=== PATIENT | male | born 1960 | race Caucasian/White ===

== ENCOUNTER 2017-04-16 10:15 | Emergency (ER) | payer OTHER ==
[~2017-04-16] VITALS: Ht 188 cm; Wt 133.0 kg
[~2017-04-16 10:15] MED LIST: CYMB60CA PO; INSU100V2 SQ; MECL25CH PO; METH2.5 PO; MEVA40TA PO; NORC7.5T PO; NOVOLOGMXP SQ; XANA0.5T PO
[2017-04-16 10:17] VITALS: BP 122/72; PULSE 103; RESP 20; TEMP 98.4; O2SAT 96
[2017-04-16] MEDS ORDERED: ALPR.5 PO (10:48)
[2017-04-16] MEDS ORDERED: ENAL10TA PO (10:48)
[2017-04-16] MEDS ORDERED: BUPR150XL PO (10:48)
[2017-04-16] MEDS ORDERED: INSU1INJ14 SQ (10:48)
[2017-04-16] MEDS ORDERED: NOVOINJ3 SQ (10:48)
[2017-04-16] MEDS ORDERED: METF-382 PO (10:48)
[2017-04-16] MEDS ORDERED: DULO20 PO (10:48)
[2017-04-16] MEDS ORDERED: GLIP5TAB8 PO (10:48)
[2017-04-16] MEDS ORDERED: CLINDAMYCIN PHOS 600 MG/4 ML VIAL IM ONE (11:00)
--- NOTE | 2017-04-16 11:42 | RADRPT ---
EXAM DATE/TIME: 04/16/2017 11:18 [place] COMPARISON: No previous studies available for comparison. INDICATIONS : Leg pain with no known injury. MEDICAL HISTORY : Hypercholesterolemia. Hypertension Diabetes. SURGICAL HISTORY : Below knee amputation. ENCOUNTER: Initial ACUITY: 4 - 6 days PAIN SCORE: 8/10 LOCATION: Left Femur. FINDINGS: Two view examination of the left femur demonstrates no evidence of fracture or dislocation. There is a linear. The soft tissue structures are intact. CONCLUSION: Osteopenia with no focal abnormality. Regino Ruiz MD on April 16, 2017 at 11:38 Board Certified Radiologist. This report was verified electronically.
--- NOTE | 2017-04-16 12:05 | PD ---
HPI Chief Complaint: Pain: Acute or Chronic Time Seen by Provider: 10:42 Travel History International Travel<30 days: No Contact w/Intl Traveler<30days: No Traveled to known affect area: No History of Present Illness HPI patient has noted 2 day history of redness, tenderness, and hot sensation to left stump skin....worsened by prosthesis. denies any alleviating / aggravating factors....denies assoc factors suchas fever, n/v/d/cough/cp/abdpain /back pain/ no drainage/ all:nkda pcp recently switched pcp can't recall name pmhx:sig for dm, left bka PFSH Past Medical History Autoimmune Disease: Yes Blood Disorders: No Anxiety: Yes Depression: Yes Heart Rhythm Problems: No Cancer: No Cardiac Catheterization: No Cardiovascular Problems: Yes High Cholesterol: Yes Congestive Heart Failure: No Diabetes: Yes Patient Takes Glucophage: Yes Diminished Hearing: No Genitourinary: No Hypertension: Yes Musculoskeletal: No Neurologic: No Psychiatric: Yes Respiratory: No Tetanus Vaccination: < 5 Years Influenza Vaccination: Yes Past Surgical History Coronary Artery Bypass Graft: No Pacemaker: No Family History Family Myocardial Infarction: Yes Social History Alcohol Use: No Tobacco Use: No (QUIT) Substance Use: No Allergies-Medications (Allergen,Severity, Reaction): Coded Allergies: No Known Allergies (Verified Adverse Reaction, Unknown, 04/16/17) Reported Meds & Prescriptions Reported Meds & Active Scripts Active Reported Wellbutrin Xl 24 HR (Bupropion HCl) 150 Mg Tab 150 Mg PO DAILY Xanax (Alprazolam) 0.5 Mg Tab 0.5 Mg PO Q6H PRN Cymbalta DR (Duloxetine HCl) 20 Mg Capdr 80 Mg PO DAILY Glipizide 5 Mg Tab 5 Mg PO HS Take 30 minutes before a meal Enalapril (Enalapril Maleate) 10 Mg Tab 10 Mg PO DAILY Metformin ER (Metformin HCl) 1,000 Mg Shameka 1,000 Mg PO DAILY With evening meal Novolog Flexpen Inj (Insulin Aspart) 300 Unit/3 Ml Pen 11 Units SQ TID Tresiba Flextouch Pen Inj (Insulin Degludec Inj) 300 unit/3 ML Pen 60 Units SQ HS Review of Systems General / Constitutional: No: Fever Eyes: No: Visual changes HENT: No: Headaches Cardiovascular: No: Chest Pain or Discomfort Respiratory: No: Shortness of Breath Gastrointestinal: No: Abdominal Pain Genitourinary: No: Dysuria Musculoskeletal: No: Pain Skin: Positive Lesions, No Rash Neurologic: No: Weakness Psychiatric: No: Depression Endocrine: No: Polydipsia Hematologic/Lymphatic: No: Easy Bruising Physical Exam Narrative GENERAL: SKIN: Warm and dry. HEAD: Atraumatic. Normocephalic. EYES: Pupils equal and round. No scleral icterus. No injection or drainage. ENT: No nasal bleeding or discharge. Mucous membranes pink and moist. NECK: Trachea midline. No JVD. CARDIOVASCULAR: Regular rate and rhythm. RESPIRATORY: No accessory muscle use. Clear to auscultation. Breath sounds equal bilaterally. GASTROINTESTINAL: Abdomen soft, non-tender, nondistended. Hepatic and splenic margins not palpable. MUSCULOSKELETAL: Extremities without clubbing, cyanosis, or edema. No obvious deformities. left bka area has erythematous orange size nonfluctuant/warmth/ induratedcellulitic changes without ulceration/drainage/ NEUROLOGICAL: Awake and alert. No obvious cranial nerve deficits. Motor grossly within normal limits. Five out of 5 muscle strength in the arms and legs. Normal speech. PSYCHIATRIC: Appropriate mood and affect; insight and judgment normal. Data Data Last Documented VS Vital Signs Date Time Temp Pulse Resp B/P (MAP) Pulse Ox O2 Delivery O2 Flow Rate FiO2 04/16/17 10:17 98.4 103 20 122/72 (89) 96 Room Air Orders Orders Femur (Ap & Lat/2vws) (04/16/17 ) Clindamycin Inj (Cleocin Inj) (04/16/17 11:00) [facility] Medical Decision Making Medical Screen Exam Complete: Yes Emergency Medical Condition: Yes Medical Record Reviewed: Yes Differential Diagnosis cellulitis v lymphangitis v osteomyelitis Narrative Course patient's xray does not show any e/o osteomyelitis. Diagnosis Primary Impression: celllulitis to left stump Patient Instructions: Cellulitis (ED), General Instructions Scripts Sulfamethoxazole-Trimethoprim (Bactrim DS) 800-160 Mg Tab 1 TAB PO BID for Infection, #20 TAB 0 Refills Prov: Arthur Fraley MD 04/16/17 Disposition: 01 DISCHARGE HOME Condition: Stable Arthur Farley MD Apr 16, 2017 12:05
[2017-04-16] MEDS ORDERED: BACT800T5 PO (12:16)
[2017-04-16 12:47] VITALS: BP 119/75
== END 2017-04-16 12:48 | disposition home or self-care (01) ==
LOC: NEPC 10:15
DX: L03.116 Cellulitis of left lower limb (principal); I10 Essential (primary) hypertension; E78.00 Pure hypercholesterolemia, unspecified; E11.9 Type 2 diabetes mellitus without complications; F32.9 Major depressive disorder, single episode, unspecified; Z89.512 Acquired absence of left leg below knee; Z79.84 Long term (current) use of oral hypoglycemic drugs; Z79.4 Long term (current) use of insulin; Z79.899 Other long term (current) drug therapy
CPT/HCPCS: 73552; 96372

== ENCOUNTER 2018-01-31 12:17 | Inpatient (IN) ==
[2018-01-31] MEDS ORDERED: Sod Chloride 0.9% Inj 1,000 ML IV.SIG ONE ×2 (15:25→17:21)
--- NOTE | 2018-01-31 15:37 | ED ---
HPI General Chief Complaint: Extremity Injury, Lower Stated Complaint: Left leg pain Time Seen by Provider: 01/31/18 15:13 Source: patient and family Mode of arrival: wheelchair Limitations: physical limitation (Left BKA) History of Present Illness HPI Narrative: The patient is a 58-year-old male with history of diabetes on insulin metformin depression anxiety hypertension hyperlipidemia status post left BKA in 2001 due to complications from diabetes presenting with nontraumatic left stump pain for about a week. He had similar problems in the past and was admitted for cellulitis. Denies any fever or chills. No nausea vomiting or diarrhea. On arrival he is tachycardic with a heart rate of 117. MD complaint: Reports knee injury and other (Left stump pain) Onset (ago): week(s) (1) Severity scale (1-10): 7 Relieving factors: nothing Exacerbating factors: weight bearing, movement and palpation Context: Reports other (Denies any injury) Associated symptoms: Denies swelling and numbness Other symptoms: Reports none Related Data Home Medications Medication Instructions Recorded Confirmed alprazolam [Xanax] 0.5 mg PO BID 01/31/18 01/31/18 duloxetine [Cymbalta] 30 mg PO DAILY 01/31/18 01/31/18 enalapril maleate 10 mg PO DAILY 01/31/18 01/31/18 insulin regular human 11 units SUBCUT TID 01/31/18 01/31/18 metformin 1,000 mg PO BID 01/31/18 01/31/18 methotrexate sodium 15 mg PO DAILY 01/31/18 01/31/18 Allergies Allergy/AdvReac Type Severity Reaction Status Date / Time No Known Allergies Allergy Verified 01/31/18 15:24 Review of Systems ROS: all other systems reviewed are negative PMFSH History History Provided By: Patient Medical History Medical History Anxiety (Acute) Depression (Acute) Diabetes (Acute) HTN (hypertension) (Acute) Hyperlipidemia (Acute) Surgical History Surgical History Hx of BKA (Acute) Family History Family History Mother Diabetes Social History Social History Substance History: No History of Abuse Second Hand Smoke Exposure: No Smoking Status: Never smoker How Often Do You Have a Drink Containing Alcohol: Never Recent Travel in [facility] within the Last 8 Weeks: No Recent Out of Country Travel within the Last 8 Weeks: No Exam Narrative Exam Narrative: GENERAL: Alert and oriented no distress SKIN: Focused skin assessment warm/dry. Mild erythema over the tip of the left stump. Markedly tender to palpation. Refill on stump brisk. No purulent discharge. Dry scaly skin. HEAD: Atraumatic. Normocephalic. EYES: Pupils equal and round. No scleral icterus. No injection or drainage. ENT: No nasal bleeding or discharge. Mucous membranes pink and moist. NECK: Trachea midline. No JVD. CARDIOVASCULAR: Tachycardia with regular rhythm. No murmur appreciated. RESPIRATORY: No accessory muscle use. Clear to auscultation. Breath sounds equal bilaterally. GASTROINTESTINAL: Abdomen soft, non-tender, nondistended. Hepatic and splenic margins not palpable. MUSCULOSKELETAL: No obvious deformities. No clubbing. No cyanosis. No edema. left BKA NEUROLOGICAL: Awake and alert. No obvious cranial nerve deficits. Motor grossly within normal limits. Normal speech. PSYCHIATRIC: Appropriate mood and affect; insight and judgment normal. Course Initial Documented Vital Signs Temperature 97.5 F L 01/31/18 12:31 Pulse Rate 117 H 01/31/18 12:31 Respiratory Rate 18 01/31/18 12:31 Blood Pressure 136/66 01/31/18 12:31 Pulse Oximetry 96 01/31/18 12:31 Last Documented Vital Signs Temperature 99.5 F 02/01/18 00:00 Pulse Rate 103 H 02/01/18 00:00 Respiratory Rate 20 02/01/18 00:00 Blood Pressure 130/60 02/01/18 00:00 Pulse Oximetry 94 L 02/01/18 00:00 Medical Decision Making [facility] Narrative Medical decision making narrative: The patient appears to have cellulitis of the left stump that appears to be chronic with possible fluid collection that may represent an abscess formation. He does have elevated sed rate and WBC. Lactic acid is WN. pt was slightly tachycardic without any fever for which he was given fluids. He is also hyperglycemic which was addressed with fluids. We will start the patient on Vanco and Flagyl. No signs of osteomyelitis on CT scan however the official read is still pending. Patient is hemodynamically stable alert and oriented aware of plan of care Medical Screen Exam Complete: Yes Emergency Medical Condition: Yes Lab Data Result diagrams: 02/01/18 05:35 02/01/18 05:35 Lab Results 01/31/18 01/31/18 01/31/18 Range/Units 15:45 15:45 15:45 WBC 11.1 H (4.0-11.0) th/mm3 RBC 4.84 (4.50-5.90) mil/mm3 Hgb 15.2 (13.0-17.0) gm/dL Hct 45.6 (39.0-51.0) % MCV 94.1 (80.0-100.0) fL MCH 31.3 (27.0-34.0) pg MCHC 33.3 (32.0-36.0) % RDW 13.2 (11.6-17.2) % Plt Count 164 (150-450) th/mm3 MPV 9.9 (7.0-11.0) fL Neut % (Auto) 79.2 H (16.0-70.0) % Lymph % (Auto) 9.1 (9.0-44.0) % [place] % (Auto) 10.3 H (0.0-8.0) % Eos % (Auto) 0.6 (0.0-4.0) % Baso % (Auto) 0.8 (0.0-2.0) % Neut # (Auto) 8.8 H (1.8-7.7) th/mm3 Lymph # (Auto) 1.0 (1.0-4.8) th/mm3 [place] # (Auto) 1.1 H (0.0-0.9) th/mm3 Eos # (Auto) 0.1 (0.0-0.4) th/mm3 Baso # (Auto) 0.1 (0.0-0.2) th/mm3 WBC Differential . Differential Comment Auto diff final ESR 1 (0-20) mm/hr Sodium 133 L (136-145) meq/L Potassium 5.0 (3.5-5.1) meq/L Chloride 93 L (98-107) meq/L Carbon Dioxide 26.4 (21.0-32.0) meq/L Anion Gap 14 (5-15) meq/L BUN 21 H (7-18) mg/dL Creatinine 1.72 H (0.60-1.30) mg/dL Estimated GFR 41 L (>89) mL/min POC Glucose (68-110) mg/dl Random Glucose 416 H (74-106) mg/dL Lactic Acid (0.4-2.0) mmol/L Calcium 8.9 (8.5-10.1) mg/dL C-Reactive Protein 17.60 H (0.00-0.30) mg/dL 01/31/18 01/31/18 02/01/18 Range/Units 17:35 20:19 05:35 WBC 11.9 H (4.0-11.0) th/mm3 RBC 4.23 L (4.50-5.90) mil/mm3 Hgb 13.5 (13.0-17.0) gm/dL Hct 39.3 (39.0-51.0) % MCV 92.7 (80.0-100.0) fL MCH 31.8 (27.0-34.0) pg MCHC 34.3 (32.0-36.0) % RDW 13.1 (11.6-17.2) % Plt Count 149 L (150-450) th/mm3 MPV 10.1 (7.0-11.0) fL Neut % (Auto) 80.2 H (16.0-70.0) % Lymph % (Auto) 9.8 (9.0-44.0) % [place] % (Auto) 9.4 H (0.0-8.0) % Eos % (Auto) 0.3 (0.0-4.0) % Baso % (Auto) 0.3 (0.0-2.0) % Neut # (Auto) 9.5 H (1.8-7.7) th/mm3 Lymph # (Auto) 1.2 (1.0-4.8) th/mm3 [place] # (Auto) 1.1 H (0.0-0.9) th/mm3 Eos # (Auto) 0.0 (0.0-0.4) th/mm3 Baso # (Auto) 0.0 (0.0-0.2) th/mm3 WBC Differential . Differential Comment Auto diff final ESR (0-20) mm/hr Sodium (136-145) meq/L Potassium (3.5-5.1) meq/L Chloride (98-107) meq/L Carbon Dioxide (21.0-32.0) meq/L Anion Gap (5-15) meq/L BUN (7-18) mg/dL Creatinine (0.60-1.30) mg/dL Estimated GFR (>89) mL/min POC Glucose 424 H (68-110) mg/dl Random Glucose (74-106) mg/dL Lactic Acid 1.5 (0.4-2.0) mmol/L Calcium (8.5-10.1) mg/dL C-Reactive Protein (0.00-0.30) mg/dL 02/01/18 02/01/18 Range/Units 05:35 07:44 WBC (4.0-11.0) th/mm3 RBC (4.50-5.90) mil/mm3 Hgb (13.0-17.0) gm/dL Hct (39.0-51.0) % MCV (80.0-100.0) fL MCH (27.0-34.0) pg MCHC (32.0-36.0) % RDW (11.6-17.2) % Plt Count (150-450) th/mm3 MPV (7.0-11.0) fL Neut % (Auto) (16.0-70.0) % Lymph % (Auto) (9.0-44.0) % [place] % (Auto) (0.0-8.0) % Eos % (Auto) (0.0-4.0) % Baso % (Auto) (0.0-2.0) % Neut # (Auto) (1.8-7.7) th/mm3 Lymph # (Auto) (1.0-4.8) th/mm3 [place] # (Auto) (0.0-0.9) th/mm3 Eos # (Auto) (0.0-0.4) th/mm3 Baso # (Auto) (0.0-0.2) th/mm3 WBC Differential Differential Comment ESR (0-20) mm/hr Sodium 134 L (136-145) meq/L Potassium 4.8 (3.5-5.1) meq/L Chloride 97 L (98-107) meq/L Carbon Dioxide 28.8 (21.0-32.0) meq/L Anion Gap 8 (5-15) meq/L BUN 19 H (7-18) mg/dL Creatinine 1.59 H (0.60-1.30) mg/dL Estimated GFR 45 L (>89) mL/min POC Glucose 321 H (68-110) mg/dl Random Glucose 359 H (74-106) mg/dL Lactic Acid (0.4-2.0) mmol/L Calcium 8.5 (8.5-10.1) mg/dL C-Reactive Protein (0.00-0.30) mg/dL Imaging Data Radiologist's impression: Foot X-Ray 01/31/18 00:00 CONCLUSION: Chronic change as described above. Knee X-Ray 01/31/18 15:23 CONCLUSION: Significant soft tissue swelling surrounding the tibial and fibular stump following below-knee amputation noted No evidence of destructive bone changes. Knee CT 01/31/18 16:25 CONCLUSION: 1. Status post [id number] amputation. 2. Nonspecific fluid collection seen inferior to the tibia. This fluid collection abuts the inferior aspect of the remaining aspect of the tibia and extends anteriorly at the distal tibia. This could be a bursa versus other fluid collection including hematoma, seroma or abscess in the correct clinical situation. Discharge Plan Discharge Disposition Patient Disposition: 30 Still Patient Discharge Condition Condition: Good Discharge Details Diagnosis: Cellulitis, SENG (acute kidney injury) Physicians Team ED Provider: Zeyad Cote Primary Care Provider: UNKNOWN, Attending Provider: Karl Stovall Other Providers: Shannon Hollis Todd A Discharge Interventions Interventions: ED Discharge Assessment Last Done: 01/31/18 20:03 Vital Signs Last Done: 01/31/18 15:39 Status ED Status: Left Department Discharge Information Discharge Date/Time: 01/31/18 19:50
--- NOTE | 2018-01-31 15:56 | XR ---
EXAM DATE: 01/31/2018 3:48 PM EST AGE/SEX: 58 years / Male INDICATIONS: Pain and swelling in stump. CLINICAL DATA: This is the patient's initial encounter. Patient reports that signs and symptoms have been present for 1 week and indicates a pain score of 5/10. MEDICAL/SURGICAL HISTORY: . Hypertension. Diabetes mellitus type 1. . Pacemaker. Left leg amp utation. COMPARISON: C, FEMUR LEFT (AP & LAT/2VWS), 04/16/2017. . FINDINGS: Postsurgical changes following below knee amputation of the left lower extremity are noted. There is soft tissue swelling surrounding the stump however the underlying tibia and fibula appear intact with out evidence of destructive changes. CONCLUSION: Significant soft tissue swelling surrounding the tibial and fibular stump following below-knee amputa tion noted No evidence of destructive bone changes. Electronically signed by: Gregg Costello MD 01/31/2018 3:54 PM EST
[2018-01-31 16:10] LABS: Baso # (Auto) 0.1 th/mm3 (0.0-0.2); Baso % (Auto) 0.8 % (0.0-2.0); Eos # (Auto) 0.1 th/mm3 (0.0-0.4); Eos % (Auto) 0.6 % (0.0-4.0); Hematocrit 45.6 % (39.0-51.0); Hemoglobin 15.2 gm/dL (13.0-17.0); Lymph % (Auto) 9.1 % (9.0-44.0); Mean Corpuscular HGB Conc 33.3 % (32.0-36.0); Mean Corpuscular Hemoglobin 31.3 pg (27.0-34.0); Mean Corpuscular Volume 94.1 fL (80.0-100.0); Mean Platelet Volume 9.9 fL (7.0-11.0); Mono # (Auto) 1.1 th/mm3 (0.0-0.9); Mono % (Auto) 10.3 % (0.0-8.0); Neut # (Auto) 8.8 th/mm3 (1.8-7.7); Neut % (Auto) 79.2 % (16.0-70.0); Platelet Count 164 th/mm3 (150-450); Red Blood Count 4.84 mil/mm3 (4.50-5.90); Red Cell Distribution Width 13.2 % (11.6-17.2); White Blood Count 11.1 th/mm3 (4.0-11.0)
[2018-01-31 16:32] LABS: Calcium 8.9 mg/dL (8.5-10.1); Carbon Dioxide 26.4 meq/L (21.0-32.0)
[2018-01-31] MEDS ORDERED: Morphine Inj 4 MG/ML Vial IV.PUSH ONE (16:38)
[2018-01-31 16:46] LABS: C-Reactive Protein 17.6 mg/dL (0.00-0.30)
[2018-01-31] MEDS ORDERED: Temazepam 15 MG Capsule PO PRN (18:31)
[2018-01-31] MEDS ORDERED: Piperacil/Tazo 4.5 GM Premix 4.5 GM/100 ML BAG IV.SIG ONE (18:31)
[2018-01-31] MEDS ORDERED: Bisacodyl 10 MG Supp RECTAL PRN (18:31)
[2018-01-31] MEDS ORDERED: Acetaminophen 325 MG Tablet PO PRN (18:31)
[2018-01-31] MEDS ORDERED: Dextrose 50% in Water 50 ML Vial IV.PUSH PRN (18:33)
[2018-01-31] MEDS ORDERED: Morphine Inj 4 MG/ML Vial IV.PUSH PRN (18:54)
--- NOTE | 2018-01-31 18:55 | P.HPIM ---
History of Present Illness Primary Care Physician: UNKNOWN [facility] - History History Provided By: Patient - Medical History Medical History: Medical History (Last Reviewed 01/31/18 @ 15:39 by Zeyad Cote DO) Anxiety Depression Diabetes HTN (hypertension) Hyperlipidemia - Surgical History Surgical History: Surgical History (Last Reviewed 01/31/18 @ 15:39 by Zeyad Cote DO) Hx of BKA - Tobacco History Second Hand Smoke Exposure: No Tobacco Use In Past 30 Days: No Smoking Status: Never smoker - Alcohol History How Often Do You Have a Drink Containing Alcohol: Never - Travel History Recent Travel in the [place] Within the Last 8 Weeks: No Recent Travel Out of the Country Within the Last 8 Weeks: No - Immunization History Tetanus Immunization: <5 Years Tetanus Immunization Year if Known: 2014 Medications and Allergies Active Medications: Active Medications Acetaminophen (Tylenol) 650 mg PO Q4H PRN PRN Reason: Temp > 100.4 Al Hydroxide/Mg Hydroxide (Milk Of Magnesia Liq) 30 ml PO Q12H PRN PRN Reason: Mild Constipation Alprazolam (Xanax) 0.5 mg PO BID [facility] Bisacodyl (Dulcolax Supp) 10 mg RECTAL DAILY PRN PRN Reason: SEVERE CONSITIPATION Dextrose (D50w Vial) 50 ml IV.PUSH UNSCH PRN PRN Reason: PER HYPOGLYCEMIA PROTOCOL Duloxetine HCl (Cymbalta) 30 mg PO DAILY [facility] Glucagon (Glucagon Inj) 1 mg OTHER PRN PRN PRN Reason: for Hypoglycemia Protocol Piperacillin/Tazobactam/Dextrose (Zosyn 4.5 Gm Premix) 4.5 gm in 100 mls @ 200 mls/hr IV.SIG ONCE ONE Stop: 01/31/18 19:00 Vancomycin HCl 1,000 mg/ (Sodium Chloride) 250 mls @ 250 mls/hr IV.SIG LOG HAULER [facility] Sodium Chloride (Ns Inj) 1,000 mls @ 100 mls/hr IV.CONT .Q10H [facility] Insulin Aspart (Novolog Insulin Correctional Sugar Inj) 0 unit SQ ACHS MA[facility]; Protocol Lactulose (Lactulose Liq) 30 ml PO DAILY PRN PRN Reason: SEVERE CONSITIPATION Ondansetron HCl (Zofran Inj) 4 mg IV.PUSH Q6H PRN PRN Reason: NAUSEA OR VOMITING Senna/Docusate Sodium (Alba-Colace) 1 tab PO BID [facility] Sennosides (Senokot) 17.2 mg PO Q12H PRN PRN Reason: Moderate Constipation Temazepam (Restoril) 15 mg PO HS PRN PRN Reason: INSOMNIA Allergies Allergy/AdvReac Type Severity Reaction Status Date / Time No Known Allergies Allergy Verified 01/31/18 15:24 Home Medications Medication Instructions Recorded Confirmed Type alprazolam [Xanax] 0.5 mg PO BID 01/31/18 01/31/18 History duloxetine [Cymbalta] 30 mg PO DAILY 01/31/18 01/31/18 History enalapril maleate 10 mg PO DAILY 01/31/18 01/31/18 History insulin regular human 11 units SUBCUT TID 01/31/18 01/31/18 History metformin 1,000 mg PO BID 01/31/18 01/31/18 History methotrexate sodium 15 mg PO DAILY 01/31/18 01/31/18 History Exam Vital signs: Vital Signs 01/31/18 12:31 01/31/18 15:39 Temperature 97.5 F L Pulse Rate 117 H 110 H Respiratory Rate 18 16 Blood Pressure 136/66 107/68 Pulse Oximetry 96 100 Intake & Output 01/30/18 01/31/18 01/31/18 18:59 06:59 18:59 Intake Total 1999 Balance 1999 Weight 124.738 kg Intake: IV 1999 NS Inj 1,000 ML @ Wide Open IV. 1999 SIG BOLUS ONE Rx#:[id number] Results - Labs CBC & Chem 7: 01/31/18 15:45 01/31/18 15:45 Labs: Short CBC 01/31/18 Range/Units 15:45 WBC 11.1 H (4.0-11.0) th/mm3 Hgb 15.2 (13.0-17.0) gm/dL Hct 45.6 (39.0-51.0) % Plt Count 164 (150-450) th/mm3 BMP 01/31/18 15:45 Sodium 133 L Potassium 5.0 Chloride 93 L Carbon Dioxide 26.4 BUN 21 H Creatinine 1.72 H Calcium 8.9 - Imaging Impressions Knee X-Ray 01/31/18 15:23 CONCLUSION: Significant soft tissue swelling surrounding the tibial and fibular stump following below-knee amputation noted No evidence of destructive bone changes. Caprini VTE Risk Assessment Caprini Risk Assessment Model: Point Value = 1 Point Value = 2 Point Value = 3 Point Value = 5 Age 41-60 Minor surgery BMI > 25 kg/m2 Swollen legs Varicose veins or History of unexplained or recurrent spontaneous Oral contraceptives or hormone replacement Sepsis (< 1 month) Serious lung disease, including pneumonia (< 1 month) Abnormal pulmonary function Acute myocardial infarction Congestive heart failure (< 1 month) History of inflammatory bowel disease Medical patient at bed rest Age 61-74 Arthroscopic surgery Major open surgery (> 45 min) Laparoscopic surgery (> 45 min) Malignancy Confined to bed (> 72 hours) Immobilizing plaster cast Central venous access Age >= 75 History of VTE Family history of VTE Factor V Leiden Prothrombin [id number] Lupus anticoagulant Anticardiolipin antibodies Elevated serum homocysteine Heparin-induced thrombocytopenia Other congenital or acquired thrombophilia Stroke (< 1 month) Elective arthroplasty Hip, pelvis, or leg fracture Acute spinal cord injury (< 1 month) Prophylaxis Regimen: Total Risk Factor Score Risk Level Prophylaxis Regimen 0-1 Low Early ambulation 2 Moderate Order ONE of the following: *Sequential Compression Device (SCD) *Heparin 5000 units SQ BID 3-4 Higher Order ONE of the following medications: *Heparin 5000 units SQ TID *Enoxaparin/Lovenox 40 mg SQ daily (WT < 150 kg, CrCl > 30 mL/min) *Enoxaparin/Lovenox 30 mg SQ daily (WT < 150 kg, CrCl > 10-29 mL/min) *Enoxaparin/Lovenox 30 mg SQ BID (WT < 150 kg, CrCl > 30 mL/min) AND/OR *Sequential Compression Device (SCD) 5 or more Highest Order ONE of the following medications: *Heparin 5000 units SQ TID (Preferred with Epidurals) *Enoxaparin/Lovenox 40 mg SQ daily (WT < 150 kg, CrCl > 30 mL/min) *Enoxaparin/Lovenox 30 mg SQ daily (WT < 150 kg, CrCl > 10-29 mL/min) *Enoxaparin/Lovenox 30 mg SQ BID (WT < 150 kg, CrCl > 30 mL/min) AND *Sequential Compression Device (SCD)
[2018-01-31] MEDS ORDERED: Vancomycin Inj 1,000 MG in Sodium Chlor 0.9% Inj 250 ML IV.SIG SCH (19:00)
--- NOTE | 2018-01-31 19:08 | CT ---
EXAM DATE: 01/31/2018 6:15 PM EST AGE/SEX: 58 years / Male INDICATIONS: Cellulitis of left below knee amputation. CLINICAL DATA: This is the patient's initial encounter. Patient reports that signs and symptoms have been present for 3 weeks and indicates a pain score of 7/10. MEDICAL/SURGICAL HISTORY: Diabetes. Hypertension. . Below knee amputation. RADIATION DOSE: 7.69 CTDI (mGy) COMPARISON: No prior exams available for comparison. TECHNIQUE: Multiple contiguous axial images were acquired using a multirow detector CT scanner witho ut contrast. Multiplanar reconstruction was performed in the sagittal and coronal planes. Using aut omated exposure control and adjustment of the mA and/or kV according to patient size, radiation dose was kept as low as reasonably achievable to obtain optimal diagnostic quality images. DICOM format i mage data is available electronically for review and comparison. FINDINGS: Bones: The patient is status post [id number] amputation. The bony structures appear intact. An a precious of bony destruction or periosteal reaction is not seen. Joints: The knee joint is aligned. Soft Tissues: There is edema seen in the superficial soft tissues. There is a focal fluid collection seen inferior to the distal tibial stump measuring 4 cm in transverse dimension,, 5.5 cm in oblique height, and 3.2 cm in AP dimension. The fluid collection does extend anterior to the distal tibia. Other: No foreign bodies seen. CONCLUSION: 1. Status post [id number] amputation. 2. Nonspecific fluid collection seen inferior to the tibia. This fluid collection abuts the inferior aspect of the remaining aspect of the tibia and extends anteriorly at the distal tibia. This could b e a bursa versus other fluid collection including hematoma, seroma or abscess in the correct clinical situation. Electronically signed by: Steve Westbrook MD 01/31/2018 7:06 PM EST
--- NOTE | 2018-01-31 19:59 | XR ---
EXAM DATE: 01/31/2018 7:55 PM EST AGE/SEX: 58 years / Male INDICATIONS: Right foot ulcer on plantar surface. CLINICAL DATA: This is the patient's initial encounter. Patient reports that signs and symptoms have been present for 1 month and indicates a pain score of 6/10. MEDICAL/SURGICAL HISTORY: . Hypercholesterolemia. Hypertension Diabetes . left lower leg amput ation COMPARISON: No prior exams available for comparison. FINDINGS: No areas of bony destruction or periosteal reaction are seen. Hammertoe deformities are seen. There i s chronic appearing calcification seen at the plantar aponeurosis region. No fracture is seen. CONCLUSION: Chronic change as described above. Electronically signed by: Steve Westbrook MD 01/31/2018 7:58 PM EST
--- NOTE | 2018-01-31 20:00 | P.HPIM ---
History of Present Illness Primary Care Physician: UNKNOWN History of Present Illness: 58 year old male with insulin-dependent DM, left BKA, neuropathy, HTN , HLD, anxiety, and depression presenting to the ER with pain in his left BKA stump x 2 weeks. He reports he started having some intermittent pain about two weeks ago that has worsened in the past week to the point where he cannot bear any weight on his prosthesis. He also has noticed some erythema around the stump that he says is new. He denies fever, chills, abdominal pain, nausea, vomiting, diarrhea, chest pain, or shortness of breath. When asked about other wounds or signs of infection he endorses a wound on the plantar aspect of his right foot that he states has been present at least 3 months. He doesn't follow with podiatry and his insurance recently dropped his PCP so he hasn't had any care for the wound except for some "salve" that was given to him by a physician early on in the wound. He does not get wound care. His mother, whom he lives with, does his "dressing changes" but she admits it hasn't been changed in at least five days. When I removed his sock there is an instant foul odor. He states the wound doesn't really drain. He denies any other issues. He denies any history of kidney disease. PMH: insulin-dependent DM, left BKA, neuropathy, HTN, HLD, anxiety Surgical Hx: L BKA (secondary to infection) Family Hx: mother with DM, father with kidney disease Social Hx: lives with his mother, quit smoking about 10 years ago, denies EtOH - Diagnosis (1) SENG (acute kidney injury) (2) Cellulitis (3) Diabetic foot ulcer Inpatient Certification: I certify that the inpatient services were ordered in accordance with Medicare regulations governing the order. This includes certification that hospital inpatient services are reasonable and necessary and in the case of services not specified as inpatient-only under 42 CFR 419.22(n), that they are appropriately provided as inpatient services in accordance to with the 2-midnight benchmark under 43 CFR 412.3(e) Estimated Total Length of Stay (Days): 2 Plans for Post Hospital Care: Not yet determined Review of Systems All other systems reviewed negative except as stated in HPI [facility] - History History Provided By: Patient - Medical History Medical History: Medical History (Last Reviewed 01/31/18 @ 20:00 by Shivani Toledo MD) Anxiety Depression Diabetes HTN (hypertension) Hyperlipidemia - Surgical History Surgical History: Surgical History (Last Reviewed 01/31/18 @ 15:39 by Zeyad Cote DO) Hx of BKA - Family History Family History: Family History (Last Updated 01/31/18 @ 20:01 by Shivani Toledo MD) Mother Diabetes - Tobacco History Second Hand Smoke Exposure: No Tobacco Use In Past 30 Days: No Smoking Status: Never smoker - Alcohol History How Often Do You Have a Drink Containing Alcohol: Never - Travel History Recent Travel in the [place] Within the Last 8 Weeks: No Recent Travel Out of the Country Within the Last 8 Weeks: No - Immunization History Tetanus Immunization: <5 Years Tetanus Immunization Year if Known: 2014 Medications and Allergies Active Medications: Active Medications Acetaminophen (Tylenol) 650 mg PO Q4H PRN PRN Reason: Temp > 100.4 Hydrocodone Bitart/Acetaminophen ([place] 5/325) 1 tab PO Q4H PRN PRN Reason: PAIN SCALE 1 TO 5 Hydrocodone Bitart/Acetaminophen ([place] 5/325) 2 tab PO Q4H PRN PRN Reason: PAIN SCALE 6 TO 10 Al Hydroxide/Mg Hydroxide (Milk Of Magnesia Liq) 30 ml PO Q12H PRN PRN Reason: Mild Constipation Alprazolam (Xanax) 0.5 mg PO BID MAILE Bisacodyl (Dulcolax Supp) 10 mg RECTAL DAILY PRN PRN Reason: SEVERE CONSITIPATION Dextrose (D50w Vial) 50 ml IV.PUSH UNSCH PRN PRN Reason: PER HYPOGLYCEMIA PROTOCOL Duloxetine HCl (Cymbalta) 30 mg PO DAILY MAILE Glucagon (Glucagon Inj) 1 mg OTHER PRN PRN PRN Reason: for Hypoglycemia Protocol Vancomycin HCl 1,000 mg/ (Sodium Chloride) 250 mls @ 250 mls/hr IV.SIG ACQUISITIONS LOGISTICS ANALYST MAILE Sodium Chloride (Ns Inj) 1,000 mls @ 100 mls/hr IV.CONT .Q10H MAILE Vancomycin HCl 1,000 mg/ (Sodium Chloride) 250 mls @ 250 mls/hr IV.SIG Q12H MAILE Piperacillin/Tazobactam/Dextrose (Zosyn 4.5 Gm Premix) 4.5 gm in 100 mls @ 200 mls/hr IV.SIG Q6H MAILE Insulin Aspart (Novolog Insulin Correctional Sugar Inj) 0 unit SQ ACHS MAILE; Protocol Lactulose (Lactulose Liq) 30 ml PO DAILY PRN PRN Reason: SEVERE CONSITIPATION Morphine Sulfate (Morphine Inj) 4 mg IV.PUSH Q4H PRN PRN Reason: BREAKTHROUGH PAIN Ondansetron HCl (Zofran Inj) 4 mg IV.PUSH Q6H PRN PRN Reason: NAUSEA OR VOMITING Senna/Docusate Sodium (Alba-Colace) 1 tab PO BID MAILE Sennosides (Senokot) 17.2 mg PO Q12H PRN PRN Reason: Moderate Constipation Temazepam (Restoril) 15 mg PO HS PRN PRN Reason: INSOMNIA Allergies Allergy/AdvReac Type Severity Reaction Status Date / Time No Known Allergies Allergy Verified 01/31/18 15:24 Home Medications Medication Instructions Recorded Confirmed Type alprazolam [Xanax] 0.5 mg PO BID 01/31/18 01/31/18 History duloxetine [Cymbalta] 30 mg PO DAILY 01/31/18 01/31/18 History enalapril maleate 10 mg PO DAILY 01/31/18 01/31/18 History insulin regular human 11 units SUBCUT TID 01/31/18 01/31/18 History metformin 1,000 mg PO BID 01/31/18 01/31/18 History methotrexate sodium 15 mg PO DAILY 01/31/18 01/31/18 History Exam Vital signs: Vital Signs 01/31/18 12:31 01/31/18 15:39 01/31/18 19:15 Temperature 97.5 F L Pulse Rate 117 H 110 H 101 H Respiratory Rate 18 16 20 Blood Pressure 136/66 107/68 155/66 H Pulse Oximetry 96 100 94 L Intake & Output 01/31/18 01/31/18 02/01/18 06:59 18:59 06:59 Intake Total 1999 Balance 1999 Weight 124.738 kg Intake: IV 1999 NS Inj 1,000 ML @ Wide Open IV. 1999 SIG BOLUS ONE Rx#:[id number] Narrative: GENERAL: Obese male sitting up in bed in [facility]. SKIN: Warm and dry. Seborrheic dermatitis over the face. HEENT: AT/NC. PERRLA. EOMI. No scleral icterus or conjunctival injection. MMM. NECK: Supple no tender LAD or JVD. HEART: RRR no m/r/g. LUNGS: CTAB without wheezes or crackles. ABDOMEN: +BS, soft, NT, ND. EXTREMITIES: Erythema, warmth, and tenderness at the distal portion of L BKA stump. There is an area of fluctuance as well but no open wounds or drainage. Right foot with large, open wound with foul-smelling purulence over the ball of his foot. Diminished right pedal pulses. NEURO: Awake and alert. Nonfocal. Speech fluent. Results - Labs CBC & Chem 7: 01/31/18 15:45 01/31/18 15:45 Labs: Short CBC 01/31/18 Range/Units 15:45 WBC 11.1 H (4.0-11.0) th/mm3 Hgb 15.2 (13.0-17.0) gm/dL Hct 45.6 (39.0-51.0) % Plt Count 164 (150-450) th/mm3 BMP 01/31/18 15:45 Sodium 133 L Potassium 5.0 Chloride 93 L Carbon Dioxide 26.4 BUN 21 H Creatinine 1.72 H Calcium 8.9 - Imaging Knee X-Ray 01/31/18 15:23 CONCLUSION: Significant soft tissue swelling surrounding the tibial and fibular stump following below-knee amputation noted No evidence of destructive bone changes. Knee CT 01/31/18 16:25 CONCLUSION: 1. Status post [id number] amputation. 2. Nonspecific fluid collection seen inferior to the tibia. This fluid collection abuts the inferior aspect of the remaining aspect of the tibia and extends anteriorly at the distal tibia. This could be a bursa versus other fluid collection including hematoma, seroma or abscess in the correct clinical situation. Caprini VTE Risk Assessment Caprini VTE Risk Assessment: Moderate/High Risk (score >= 2) Caprini Risk Assessment Model: Point Value = 1 Point Value = 2 Point Value = 3 Point Value = 5 Age 41-60 Minor surgery BMI > 25 kg/m2 Swollen legs Varicose veins or History of unexplained or recurrent spontaneous Oral contraceptives or hormone replacement Sepsis (< 1 month) Serious lung disease, including pneumonia (< 1 month) Abnormal pulmonary function Acute myocardial infarction Congestive heart failure (< 1 month) History of inflammatory bowel disease Medical patient at bed rest Age 61-74 Arthroscopic surgery Major open surgery (> 45 min) Laparoscopic surgery (> 45 min) Malignancy Confined to bed (> 72 hours) Immobilizing plaster cast Central venous access Age >= 75 History of VTE Family history of VTE Factor V Leiden Prothrombin [id number] Lupus anticoagulant Anticardiolipin antibodies Elevated serum homocysteine Heparin-induced thrombocytopenia Other congenital or acquired thrombophilia Stroke (< 1 month) Elective arthroplasty Hip, pelvis, or leg fracture Acute spinal cord injury (< 1 month) Prophylaxis Regimen: Total Risk Factor Score Risk Level Prophylaxis Regimen 0-1 Low Early ambulation 2 Moderate Order ONE of the following: *Sequential Compression Device (SCD) *Heparin 5000 units SQ BID 3-4 Higher Order ONE of the following medications: *Heparin 5000 units SQ TID *Enoxaparin/Lovenox 40 mg SQ daily (WT < 150 kg, CrCl > 30 mL/min) *Enoxaparin/Lovenox 30 mg SQ daily (WT < 150 kg, CrCl > 10-29 mL/min) *Enoxaparin/Lovenox 30 mg SQ BID (WT < 150 kg, CrCl > 30 mL/min) AND/OR *Sequential Compression Device (SCD) 5 or more Highest Order ONE of the following medications: *Heparin 5000 units SQ TID (Preferred with Epidurals) *Enoxaparin/Lovenox 40 mg SQ daily (WT < 150 kg, CrCl > 30 mL/min) *Enoxaparin/Lovenox 30 mg SQ daily (WT < 150 kg, CrCl > 10-29 mL/min) *Enoxaparin/Lovenox 30 mg SQ BID (WT < 150 kg, CrCl > 30 mL/min) AND *Sequential Compression Device (SCD) Assessment and Plan - Assessment (1) SENG (acute kidney injury) Code(s): N17.9 - Acute kidney failure, unspecified Status: Acute (2) Cellulitis Code(s): L03.90 - Cellulitis, unspecified Status: Acute (3) Diabetic foot ulcer Code(s): E11.621 - Type 2 diabetes mellitus with foot ulcer; L97.509 - Non- pressure chronic ulcer of other part of unspecified foot with unspecified severity Status: Acute - Plan 58 YOWM with IDDM, HLD, depression, anxiety, and history of L BKA admitted for BKA stump cellulitis with possible abscess as well as right diabetic foot ulcer. 1. Cellulitis and possible abscess of L BKA stump - Erythema, warmth, and tenderness around L BKA stump with some palpable fluctuance - Pt afebrile but tachycardic - WBC mildly elevated at 11.1, lactic acid WNL, CRP 17 - Not meeting septic criteria - XR showing significant soft tissue swelling and CT showing a fluid collection seen inferior to the tibia and in this clinical setting it is suspicious for an abscess - IV antibiotics with vancomycin and Zosyn - Blood cultures pending - Consult ortho for eval of possible abscess, will keep NPO in case - Pain control 2. R diabetic foot ulcer with signs of infection - Right plantar wound at the ball of the foot that has essentially not been treated or had wound care - Obtain culture and Gram stain - IV antibiotics as above - XR with no signs of osteo - Consult podiatry and wound care nurse 3. Diabetes mellitus with hyperglycemia - Blood glucose in the 400s on arrival - Hold home metformin and prandial insulin - Place on SSI with Accu-Checks per protocol - Start Levemir 5 units and titrate - Check A1c since patient hasn't been following with a PCP 4. Acute kidney injury - Pt denies any history of CKD though likely has underlying renal insufficiency - Last creatinine on file 2015 was 1.48 - Creatinine 1.72 on admission - Hold home LALO inhibitor and metformin - Watch creatinine carefully while on vancomycin and Zosyn, if worsens may have to change abx - IV fluids - Monitor renal function 5. Hyperlipidemia - Continue home statin 6. Anxiety - Continue home Xanax 7. Diabetic neuropathy - Continue home Cymbalta FEN: - Fluids: NS at 100 ml/hr - Electrolytes: mild hyponatremia, providing fluids; borderline elevated potassium, holding home LALO-I in light of SENG, continue to monitor - Nutrition: NPO after midnight DVT prophylaxis: SCDs, hold chemical anticoagulation should patient go to OR for I&D Code Status: FULL Discussed Condition With: Patient and his mother (2) Cellulitis Qualifiers: Site of cellulitis: extremity Site of cellulitis of extremity: lower extremity Laterality: left Qualified Code(s): L03.116 - Cellulitis of left lower limb (3) Diabetic foot ulcer Qualifiers: Diabetic foot ulcer location: midfoot Diabetes mellitus type: type 2 Laterality: right
[2018-01-31] MEDS: Senna/Docusate Sodium 8.6/50 MG Tablet PO SCH (20:15)
[2018-01-31] MEDS: ALPRAZolam 0.5 MG Tablet PO SCH (20:15)
[2018-01-31] MEDS: Sod Chloride 0.9% Inj 1,000 ML IV.CONT SCH (20:16)
[2018-01-31] MEDS: Insulin NovoLOG Aspart Correctional Sugar Inj SQ SCH (20:21)
[2018-01-31] MEDS ORDERED: Influenza (Quadrivalent) Vaccine 0.5 ML Syringe IM ONE (21:00)
[2018-01-31] MEDS ORDERED: Vancomycin Consult Pharmacy OTHER PRN (21:10)
[2018-01-31] MEDS ORDERED: Insulin Detemir Inj 1,000 UNIT/10 ML Vial SQ SCH (21:30)
[2018-01-31] MEDS ORDERED: Vancomycin Inj 2,000 MG in Sodium Chlor 0.9% Inj 500 ML IV.SIG ONE (22:00)
[2018-01-31] MEDS ORDERED: Sodium Chloride 0.9% 2 ML Flush PRN IV.FLUSH (22:12)
[2018-02-01] MEDS: Piperacil/Tazo 4.5 GM Premix 4.5 GM/100 ML BAG IV.SIG SCH ×5 (02:53→19:28)
[2018-02-01] MEDS: Sod Chloride 0.9% Inj 1,000 ML IV.CONT SCH ×2 (06:04→19:29)
--- NOTE | 2018-02-01 06:51 | P.PNOP ---
Subjective Interval history: Full orthopedic consult will be dictated. Patient has 3-week history of left below knee amputation stump pain and swelling. Having difficulty wearing his prosthesis. Physical Exam Vital signs: Vital Signs 01/31/18 12:31 01/31/18 15:39 01/31/18 19:15 Temperature 97.5 F L Pulse Rate 117 H 110 H 101 H Respiratory Rate 18 16 20 Blood Pressure 136/66 107/68 155/66 H Pulse Oximetry 96 100 94 L 01/31/18 20:00 02/01/18 00:00 Temperature 99.0 F 99.5 F Pulse Rate 107 H 103 H Respiratory Rate 20 20 Blood Pressure 112/64 130/60 Pulse Oximetry 92 L 94 L Intake & Output 01/31/18 01/31/18 02/01/18 06:59 18:59 06:59 Intake Total 1999 640 / 640 Output Total 700 / 700 Balance 1999 -60 / -60 Weight 124.738 kg 115.8 kg Intake: IV 1999 640 / 640 Zosyn 4.5 GM Premix 4.5 gm In 100 / 100 100 ml @ 200 mls/hr IV.SIG ONCE ONE Rx#:[id number] NS Inj 1,000 ML @ Wide Open IV. 1999 SIG BOLUS ONE Rx#:[id number] Vancomycin Inj 2,000 MG In NS 540 / 540 Inj 500 ML @ 270 mls/hr IV.SIG ONCE ONE Rx#:[id number] Output: Urine 700 / 700 Narrative: Patient is awake and alert. Left BKA stump is tender to palpation. Skin is intact. No drainage. Results - Labs CBC & Chem 7: 01/31/18 15:45 01/31/18 15:45 Laboratory Results - last 24 hr 01/31/18 01/31/18 01/31/18 15:45 15:45 15:45 WBC 11.1 H RBC 4.84 Hgb 15.2 Hct 45.6 MCV 94.1 MCH 31.3 MCHC 33.3 RDW 13.2 Plt Count 164 MPV 9.9 Neut % (Auto) 79.2 H Lymph % (Auto) 9.1 [place] % (Auto) 10.3 H Eos % (Auto) 0.6 Baso % (Auto) 0.8 Neut # (Auto) 8.8 H Lymph # (Auto) 1.0 [place] # (Auto) 1.1 H Eos # (Auto) 0.1 Baso # (Auto) 0.1 WBC Differential . Differential Comment Auto diff final ESR 1 Sodium 133 L Potassium 5.0 Chloride 93 L Carbon Dioxide 26.4 Anion Gap 14 BUN 21 H Creatinine 1.72 H Estimated GFR 41 L POC Glucose Random Glucose 416 H Lactic Acid Calcium 8.9 C-Reactive Protein 17.60 H 01/31/18 01/31/18 17:35 20:19 WBC RBC Hgb Hct MCV MCH MCHC RDW Plt Count MPV Neut % (Auto) Lymph % (Auto) [place] % (Auto) Eos % (Auto) Baso % (Auto) Neut # (Auto) Lymph # (Auto) [place] # (Auto) Eos # (Auto) Baso # (Auto) WBC Differential Differential Comment ESR Sodium Potassium Chloride Carbon Dioxide Anion Gap BUN Creatinine Estimated GFR POC Glucose 424 H Random Glucose Lactic Acid 1.5 Calcium C-Reactive Protein - Imaging Impressions Foot X-Ray 01/31/18 00:00 CONCLUSION: Chronic change as described above. Knee X-Ray 01/31/18 15:23 CONCLUSION: Significant soft tissue swelling surrounding the tibial and fibular stump following below-knee amputation noted No evidence of destructive bone changes. Knee CT 01/31/18 16:25 CONCLUSION: 1. Status post [id number] amputation. 2. Nonspecific fluid collection seen inferior to the tibia. This fluid collection abuts the inferior aspect of the remaining aspect of the tibia and extends anteriorly at the distal tibia. This could be a bursa versus other fluid collection including hematoma, seroma or abscess in the correct clinical situation. Assessment and Plan - Assessment and Plan CT scan reviewed. There appears to be fluid collection along the distal BKA stump. This could be infection or could be inflamed bursa. I discussed options of surgery versus interventional radiology for aspiration with patient Recommend interventional radiology consultation for aspiration of left BKA stump fluid collection with possible drain placement--need to send fluid for cell count, cultures, and Gram stain If patient does have infection, he will need surgical irrigation and debridement of left BKA stump.
[2018-02-01 06:56] LABS: Baso % (Auto) 0.3 % (0.0-2.0); Eos % (Auto) 0.3 % (0.0-4.0); Hematocrit 39.3 % (39.0-51.0); Hemoglobin 13.5 gm/dL (13.0-17.0); Lymph # (Auto) 1.2 th/mm3 (1.0-4.8); Lymph % (Auto) 9.8 % (9.0-44.0); Mean Corpuscular HGB Conc 34.3 % (32.0-36.0); Mean Corpuscular Hemoglobin 31.8 pg (27.0-34.0); Mean Corpuscular Volume 92.7 fL (80.0-100.0); Mean Platelet Volume 10.1 fL (7.0-11.0); Mono # (Auto) 1.1 th/mm3 (0.0-0.9); Mono % (Auto) 9.4 % (0.0-8.0); Neut # (Auto) 9.5 th/mm3 (1.8-7.7); Neut % (Auto) 80.2 % (16.0-70.0); Platelet Count 149 th/mm3 (150-450); Red Blood Count 4.23 mil/mm3 (4.50-5.90); Red Cell Distribution Width 13.1 % (11.6-17.2); White Blood Count 11.9 th/mm3 (4.0-11.0)
[2018-02-01] MEDS ORDERED: Vancomycin Inj 1,000 MG in Sodium Chlor 0.9% Inj 250 ML IV.SIG SCH (07:00)
[2018-02-01 07:20] LABS: Calcium 8.5 mg/dL (8.5-10.1); Carbon Dioxide 28.8 meq/L (21.0-32.0); Potassium 4.8 meq/L (3.5-5.1)
[2018-02-01] MEDS: Insulin NovoLOG Aspart Correctional Sugar Inj SQ SCH ×6 (08:18→20:14)
[2018-02-01] MEDS: Senna/Docusate Sodium 8.6/50 MG Tablet PO SCH ×2 (08:19→20:14)
[2018-02-01] MEDS: ALPRAZolam 0.5 MG Tablet PO SCH ×2 (08:19→20:14)
[2018-02-01] MEDS: Sodium Chloride 0.9% 2 ML Flush BID IV.FLUSH SCH ×2 (08:21→20:15)
[2018-02-01 09:37] LABS: Hemoglobin A1c 11.9 % (4.3-6.0)
--- NOTE | 2018-02-01 09:47 | P.PN ---
Subjective Interval history: This is a pleasant 58 y/o Male with DM II, Left BKA, Peripheral Neuropathy, Hypertension, Hyperlipidemia Anxiety disorder, Depression, came to ER with Pain on Left BKA stump 02/01: Seen in his bedroom in the presence of his Mother and Father, seen by Orthopedic resource specialist teacher saw fluid collection along the distal BKA stump, could be infection versus inflamed bursa, asked for Interventional Radiology for aspiration and sent fluid for cell count, cultures and gram stain , no nausea, vomit or diarrhea left NPO for probable surgery for tomorrow. Physical Exam Vital signs: Vital Signs 01/31/18 12:31 01/31/18 15:39 01/31/18 19:15 Temperature 97.5 F L Pulse Rate 117 H 110 H 101 H Respiratory Rate 18 16 20 Blood Pressure 136/66 107/68 155/66 H Pulse Oximetry 96 100 94 L 01/31/18 20:00 02/01/18 00:00 02/01/18 08:00 Temperature 99.0 F 99.5 F 97.9 F Pulse Rate 107 H 103 H 92 H Respiratory Rate 20 20 18 Blood Pressure 112/64 130/60 113/55 L Pulse Oximetry 92 L 94 L 96 Intake & Output 01/31/18 02/01/18 02/01/18 18:59 06:59 18:59 Intake Total 1999 640 / 640 Output Total 700 / 700 Balance 1999 -60 / -60 Weight 124.738 kg 115.8 kg Intake: IV 1999 640 / 640 Zosyn 4.5 GM Premix 4.5 gm In 100 / 100 100 ml @ 200 mls/hr IV.SIG ONCE ONE Rx#:[id number] NS Inj 1,000 ML @ Wide Open IV. 1999 SIG BOLUS ONE Rx#:[id number] Vancomycin Inj 2,000 MG In NS 540 / 540 Inj 500 ML @ 270 mls/hr IV.SIG ONCE ONE Rx#:[id number] Output: Urine 700 / 700 Narrative: GENERAL: No acute distress. moderately disheveled. SKIN: Warm and dry. Seborrheic dermatitis over the face. HEENT: AT/NC. PERRLA. EOMI. No scleral icterus or conjunctival injection. MMM. NECK: Supple no tender LAD or JVD. HEART: RRR no m/r/g. LUNGS: CTAB without wheezes or crackles. ABDOMEN: +BS, soft, NT, ND. EXTREMITIES: Erythema, warmth, and tenderness at the distal portion of L BKA stump. There is an area of fluctuance as well but no open wounds or drainage. Right foot with large, open wound with foul-smelling purulence over the ball of his foot. Diminished right pedal pulses. NEURO: Awake and alert. Nonfocal. Speech fluent. Results - Labs CBC & Chem 7: 02/01/18 05:35 02/01/18 05:35 Laboratory Results - last 24 hr 01/31/18 01/31/18 01/31/18 15:45 15:45 15:45 WBC 11.1 H RBC 4.84 Hgb 15.2 Hct 45.6 MCV 94.1 MCH 31.3 MCHC 33.3 RDW 13.2 Plt Count 164 MPV 9.9 Neut % (Auto) 79.2 H Lymph % (Auto) 9.1 [place] % (Auto) 10.3 H Eos % (Auto) 0.6 Baso % (Auto) 0.8 Neut # (Auto) 8.8 H Lymph # (Auto) 1.0 [place] # (Auto) 1.1 H Eos # (Auto) 0.1 Baso # (Auto) 0.1 WBC Differential . Differential Comment Auto diff final ESR 1 Sodium 133 L Potassium 5.0 Chloride 93 L Carbon Dioxide 26.4 Anion Gap 14 BUN 21 H Creatinine 1.72 H Estimated GFR 41 L POC Glucose Random Glucose 416 H Lactic Acid Calcium 8.9 C-Reactive Protein 17.60 H 01/31/18 01/31/18 02/01/18 17:35 20:19 05:35 WBC 11.9 H RBC 4.23 L Hgb 13.5 Hct 39.3 MCV 92.7 MCH 31.8 MCHC 34.3 RDW 13.1 Plt Count 149 L MPV 10.1 Neut % (Auto) 80.2 H Lymph % (Auto) 9.8 [place] % (Auto) 9.4 H Eos % (Auto) 0.3 Baso % (Auto) 0.3 Neut # (Auto) 9.5 H Lymph # (Auto) 1.2 [place] # (Auto) 1.1 H Eos # (Auto) 0.0 Baso # (Auto) 0.0 WBC Differential . Differential Comment Auto diff final ESR Sodium Potassium Chloride Carbon Dioxide Anion Gap BUN Creatinine Estimated GFR POC Glucose 424 H Random Glucose Lactic Acid 1.5 Calcium C-Reactive Protein 02/01/18 02/01/18 05:35 07:44 WBC RBC Hgb Hct MCV MCH MCHC RDW Plt Count MPV Neut % (Auto) Lymph % (Auto) [place] % (Auto) Eos % (Auto) Baso % (Auto) Neut # (Auto) Lymph # (Auto) [place] # (Auto) Eos # (Auto) Baso # (Auto) WBC Differential Differential Comment ESR Sodium 134 L Potassium 4.8 Chloride 97 L Carbon Dioxide 28.8 Anion Gap 8 BUN 19 H Creatinine 1.59 H Estimated GFR 45 L POC Glucose 321 H Random Glucose 359 H Lactic Acid Calcium 8.5 C-Reactive Protein Microbiology 01/31/18 20:40 Wound - Foot Gram Stain - Final - Imaging Impressions Foot X-Ray 01/31/18 00:00 CONCLUSION: Chronic change as described above. Knee X-Ray 01/31/18 15:23 CONCLUSION: Significant soft tissue swelling surrounding the tibial and fibular stump following below-knee amputation noted No evidence of destructive bone changes. Knee CT 01/31/18 16:25 CONCLUSION: 1. Status post [id number] amputation. 2. Nonspecific fluid collection seen inferior to the tibia. This fluid collection abuts the inferior aspect of the remaining aspect of the tibia and extends anteriorly at the distal tibia. This could be a bursa versus other fluid collection including hematoma, seroma or abscess in the correct clinical situation. - Procedures Interventional meeting specialist Left BKA Stump aspiration 02/01/18 Assessment and Plan - Assessment (1) SENG (acute kidney injury) Code(s): N17.9 - Acute kidney failure, unspecified Status: Acute (2) Cellulitis Code(s): L03.90 - Cellulitis, unspecified Status: Acute (3) Diabetic foot ulcer Code(s): E11.621 - Type 2 diabetes mellitus with foot ulcer; L97.509 - Non- pressure chronic ulcer of other part of unspecified foot with unspecified severity Status: Acute - Plan 58 YOWM with IDDM, HLD, depression, anxiety, and history of L BKA admitted for BKA stump cellulitis with possible abscess as well as right diabetic foot ulcer. 1. Cellulitis and possible abscess of L BKA stump - 02/01: Seen by Orthopedic resource specialist teacher saw fluid collection along the distal BKA stump, could be infection versus inflamed bursa, asked for Interventional Radiology for aspiration and sent fluid for cell count, cultures and gram stain, left NPO for probable surgery for tomorrow. 2. R diabetic foot ulcer with signs of infection - Right plantar wound at the ball of the foot that has essentially not been treated or had wound care - Obtain culture and Gram stain - IV antibiotics as above - XR with no signs of osteo - Consult podiatry and wound care nurse 3. Diabetes mellitus with hyperglycemia - uncontrolled, follow hemoglobin A1C, pre meal 5 units of Regular Insulin, increase Detemir to 25 units daily and Medium sliding scale. 4. Acute kidney injury - Pt denies any history of CKD though likely has underlying renal insufficiency - Last creatinine on file 2015 was 1.48 - Creatinine 1.72 on admission - Hold home LALO inhibitor and metformin - Watch creatinine carefully while on vancomycin and Zosyn, if worsens may have to change abx - IV fluids - Monitor renal function 5. Hyperlipidemia - Continue home statin 6. Anxiety - Continue home Xanax 7. Diabetic neuropathy - Continue home Cymbalta FEN: - Fluids: NS at 100 ml/hr - Electrolytes: mild hyponatremia, providing fluids; borderline elevated potassium, holding home LALO-I in light of SENG, continue to monitor - Nutrition: NPO after midnight DVT prophylaxis: SCDs, hold chemical anticoagulation should patient go to OR for I&D Code Status: Full code. Discussed Condition With: Patient, His Mother and Father in the room and Nurse Miss Encinas. Discharge Planning: Once cleared by Specialists. (2) Cellulitis Qualifiers: Site of cellulitis: extremity Site of cellulitis of extremity: lower extremity Laterality: left Qualified Code(s): L03.116 - Cellulitis of left lower limb (3) Diabetic foot ulcer Qualifiers: Diabetic foot ulcer location: midfoot Diabetes mellitus type: type 2 Laterality: right
--- NOTE | 2018-02-01 09:49 | P.CONOP ---
[facility] Orthopedics Consult Note - [facility] Consult date: 02/01/18 Chief complaint: LLE Cellulitis, dibetes Narrative: Rashid is a 58-year-old male. He has history of insulin-dependent diabetes. 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 He has been ambulatory with a prosthesis. Approximately 2 weeks ago he began having increasing pain and difficulty bearing weight on his prosthesis. He denies fevers or chills. His main complaint is the left leg stump pain and swelling. Pain is worse with weightbearing. He has had a chronic wound on his right foot. The right foot wound has been present for at least 3 months. He has not been seeing wound care or his primary care physician for this wound. He lives at home with his mother. Review of Systems Patient denies fevers, chills, weight loss, headache, visual changes, hearing loss, chest pain, palpitations, shortness of breath, nausea, vomiting, no urinary changes, diarrhea, bowel changes, neck pain, back pain, skin rashes, weakness of extremities, easy bleeding, enlarged lymph nodes, numbness of extremities, anxiety, or depression. He complains of left leg stump pain and right foot ulceration Patient's social history, past medical history, and family history were reviewed on chart and with patient. [facility] - History History Provided By: Patient - Medical History Medical History: Medical History (Last Reviewed 02/01/18 @ 09:43 by Flaquito Lawler MD) Anxiety Depression Diabetes HTN (hypertension) Hyperlipidemia - Surgical History Surgical History: Surgical History (Last Reviewed 02/01/18 @ 09:43 by Flaquito Lawler MD) Hx of BKA - Family History Family History: Family History (Last Reviewed 02/01/18 @ 09:43 by Flaquito Lawler MD) Mother Diabetes - Social History I have reviewed the patient's Social History: Yes - Tobacco History Second Hand Smoke Exposure: No Tobacco Use In Past 30 Days: No Smoking Status: Never smoker - Alcohol History How Often Do You Have a Drink Containing Alcohol: Never - Substance Use History Substance History: No History of Abuse - Travel History Recent Travel in the [place] Within the Last 8 Weeks: No Recent Travel Out of the Country Within the Last 8 Weeks: No - Immunization History Tetanus Immunization: <5 Years Tetanus Immunization Year if Known: 2014 Hx Influenza Vaccine This Season: No Medications and Allergies Active Medications: Active Medications Acetaminophen (Tylenol) 650 mg PO Q4H PRN PRN Reason: Temp > 100.4 Hydrocodone Bitart/Acetaminophen ([place] 5/325) 1 tab PO Q4H PRN PRN Reason: PAIN SCALE 1 TO 5 Hydrocodone Bitart/Acetaminophen ([place] 5/325) 2 tab PO Q4H PRN PRN Reason: PAIN SCALE 6 TO 10 Last Admin: 02/01/18 06:04 Dose: 2 tab Al Hydroxide/Mg Hydroxide (Milk Of Magnesia Liq) 30 ml PO Q12H PRN PRN Reason: Mild Constipation Alprazolam (Xanax) 0.5 mg PO BID [facility] Last Admin: 02/01/18 08:19 Dose: 0.5 mg Bisacodyl (Dulcolax Supp) 10 mg RECTAL DAILY PRN PRN Reason: SEVERE CONSITIPATION Clonidine HCl (Catapres) 0.1 mg PO Q6H PRN PRN Reason: SBP>160, DBP>90 Dextrose (D50w Vial) 50 ml IV.PUSH UNSCH PRN PRN Reason: PER HYPOGLYCEMIA PROTOCOL Duloxetine HCl (Cymbalta) 30 mg PO DAILY [facility] Last Admin: 02/01/18 08:19 Dose: 30 mg Glucagon (Glucagon Inj) 1 mg OTHER PRN PRN PRN Reason: for Hypoglycemia Protocol Sodium Chloride (Ns Inj) 1,000 mls @ 100 mls/hr IV.CONT .Q10H [facility] Last Admin: 02/01/18 06:04 Dose: Not Given Piperacillin/Tazobactam/Dextrose (Zosyn 4.5 Gm Premix) 4.5 gm in 100 mls @ 200 mls/hr IV.SIG Q6H [facility] Last Admin: 02/01/18 06:03 Dose: 100 mls/hr Insulin Aspart (Novolog Insulin Correctional Sugar Inj) 0 unit SQ ACHS [facility]; Protocol Last Admin: 02/01/18 08:18 Dose: 7 unit Insulin Detemir (Levemir Inj) 5 unit SQ HS [facility] Last Admin: 01/31/18 21:51 Dose: 5 unit Lactulose (Lactulose Liq) 30 ml PO DAILY PRN PRN Reason: SEVERE CONSITIPATION Morphine Sulfate (Morphine Inj) 4 mg IV.PUSH Q4H PRN PRN Reason: BREAKTHROUGH PAIN Ondansetron HCl (Zofran Inj) 4 mg IV.PUSH Q6H PRN PRN Reason: NAUSEA OR VOMITING Pharmacy Profile Note (Vancomycin Consult Pharmacy) 1 each OTHER UNSCH PRN PRN Reason: Pharmacy to dose Senna/Docusate Sodium (Alba-Colace) 1 tab PO BID [facility] Last Admin: 02/01/18 08:19 Dose: 1 tab Sennosides (Senokot) 17.2 mg PO Q12H PRN PRN Reason: Moderate Constipation Sodium Chloride (Ns Flush) 2 ml IV.FLUSH BID [facility] Last Admin: 02/01/18 08:21 Dose: Not Given Sodium Chloride (Ns Flush) 2 ml IV.FLUSH PRN PRN PRN Reason: FLUSH AFTER USING IV ACCESS Temazepam (Restoril) 15 mg PO HS PRN PRN Reason: INSOMNIA Allergies Allergy/AdvReac Type Severity Reaction Status Date / Time No Known Allergies Allergy Verified 01/31/18 15:24 Home Medications Medication Instructions Recorded Confirmed Type alprazolam [Xanax] 0.5 mg PO BID 01/31/18 01/31/18 History duloxetine [Cymbalta] 30 mg PO DAILY 01/31/18 01/31/18 History enalapril maleate 10 mg PO DAILY 01/31/18 01/31/18 History insulin regular human 11 units SUBCUT TID 01/31/18 01/31/18 History metformin 1,000 mg PO BID 01/31/18 01/31/18 History methotrexate sodium 15 mg PO DAILY 01/31/18 01/31/18 History Exam Vital signs: Vital Signs 01/31/18 12:31 01/31/18 15:39 01/31/18 19:15 Temperature 97.5 F L Pulse Rate 117 H 110 H 101 H Respiratory Rate 18 16 20 Blood Pressure 136/66 107/68 155/66 H Pulse Oximetry 96 100 94 L 01/31/18 20:00 02/01/18 00:00 02/01/18 08:00 Temperature 99.0 F 99.5 F 97.9 F Pulse Rate 107 H 103 H 92 H Respiratory Rate 20 20 18 Blood Pressure 112/64 130/60 113/55 L Pulse Oximetry 92 L 94 L 96 Intake & Output 01/31/18 02/01/18 02/01/18 18:59 06:59 18:59 Intake Total 1999 640 / 640 Output Total 700 / 700 Balance 1999 -60 / -60 Weight 124.738 kg 115.8 kg Intake: IV 1999 640 / 640 Zosyn 4.5 GM Premix 4.5 gm In 100 / 100 100 ml @ 200 mls/hr IV.SIG ONCE ONE Rx#:[id number] NS Inj 1,000 ML @ Wide Open IV. 1999 SIG BOLUS ONE Rx#:[id number] Vancomycin Inj 2,000 MG In NS 540 / 540 Inj 500 ML @ 270 mls/hr IV.SIG ONCE ONE Rx#:[id number] Output: Urine 700 / 700 Narrative: Rashid is a 58-year-old male. General: Awake and alert. No acute distress. Appears well-developed well- nourished Head: Normocephalic, atraumatic pupils are equal Neck: Soft, nontender, trachea midline Abdomen: Soft, nondistended Examination of right arm reveals no pain or deformity with shoulder, elbow, or wrist motion. Skin is intact. Radial pulse is palpable. Normal capillary refill in fingers. Sensation is intact in radial, ulnar, and median nerve distributions. Scroll Saw Operator strength is +5. No lymphadenopathy noted. Examination of left arm reveals no pain or deformity with shoulder, elbow, or wrist motion. Skin is intact. Radial pulse is palpable. Normal capillary refill in fingers. Sensation is intact in radial, ulnar, and median nerve distributions. Scroll Saw Operator strength is +5. No lymphadenopathy noted. Examination of left lower extremity reveals no pain with hip or knee motion. He has well-healed below-knee amputation stump. There is diffuse tenderness around the distal end of the stump. There is no obvious fluctuance. There is some swelling and warmth of the distal stump. Skin is intact. Examination of right lower extremity reveals no pain or deformity with hip, knee , or ankle motion. He does have a open ulceration on the plantar aspect of his foot. He has diminished sensation throughout right foot. Dorsalis pedis pulse is palpable. Thigh and calf compartments are soft. No lymphadenopathy noted. +5 strength of ankle dorsiflexion and plantarflexion. Results - Labs Result Diagrams: 02/01/18 05:35 02/01/18 05:35 Labs: Laboratory Results - last 24 hr 01/31/18 01/31/18 01/31/18 15:45 15:45 15:45 WBC 11.1 H RBC 4.84 Hgb 15.2 Hct 45.6 MCV 94.1 MCH 31.3 MCHC 33.3 RDW 13.2 Plt Count 164 MPV 9.9 Neut % (Auto) 79.2 H Lymph % (Auto) 9.1 [place] % (Auto) 10.3 H Eos % (Auto) 0.6 Baso % (Auto) 0.8 Neut # (Auto) 8.8 H Lymph # (Auto) 1.0 [place] # (Auto) 1.1 H Eos # (Auto) 0.1 Baso # (Auto) 0.1 WBC Differential . Differential Comment Auto diff final ESR 1 Sodium 133 L Potassium 5.0 Chloride 93 L Carbon Dioxide 26.4 Anion Gap 14 BUN 21 H Creatinine 1.72 H Estimated GFR 41 L POC Glucose Random Glucose 416 H Lactic Acid Calcium 8.9 C-Reactive Protein 17.60 H 01/31/18 01/31/18 02/01/18 17:35 20:19 05:35 WBC 11.9 H RBC 4.23 L Hgb 13.5 Hct 39.3 MCV 92.7 MCH 31.8 MCHC 34.3 RDW 13.1 Plt Count 149 L MPV 10.1 Neut % (Auto) 80.2 H Lymph % (Auto) 9.8 [place] % (Auto) 9.4 H Eos % (Auto) 0.3 Baso % (Auto) 0.3 Neut # (Auto) 9.5 H Lymph # (Auto) 1.2 [place] # (Auto) 1.1 H Eos # (Auto) 0.0 Baso # (Auto) 0.0 WBC Differential . Differential Comment Auto diff final ESR Sodium Potassium Chloride Carbon Dioxide Anion Gap BUN Creatinine Estimated GFR POC Glucose 424 H Random Glucose Lactic Acid 1.5 Calcium C-Reactive Protein 02/01/18 02/01/18 05:35 07:44 WBC RBC Hgb Hct MCV MCH MCHC RDW Plt Count MPV Neut % (Auto) Lymph % (Auto) [place] % (Auto) Eos % (Auto) Baso % (Auto) Neut # (Auto) Lymph # (Auto) [place] # (Auto) Eos # (Auto) Baso # (Auto) WBC Differential Differential Comment ESR Sodium 134 L Potassium 4.8 Chloride 97 L Carbon Dioxide 28.8 Anion Gap 8 BUN 19 H Creatinine 1.59 H Estimated GFR 45 L POC Glucose 321 H Random Glucose 359 H Lactic Acid Calcium 8.5 C-Reactive Protein - Diagnostic results Imaging: Impressions Foot X-Ray 01/31/18 00:00 CONCLUSION: Chronic change as described above. Knee X-Ray 01/31/18 15:23 CONCLUSION: Significant soft tissue swelling surrounding the tibial and fibular stump following below-knee amputation noted No evidence of destructive bone changes. Knee CT 01/31/18 16:25 CONCLUSION: 1. Status post [id number] amputation. 2. Nonspecific fluid collection seen inferior to the tibia. This fluid collection abuts the inferior aspect of the remaining aspect of the tibia and extends anteriorly at the distal tibia. This could be a bursa versus other fluid collection including hematoma, seroma or abscess in the correct clinical situation. Knee CT: report reviewed, image reviewed Assessment and Plan - Assessment and Plan Rashid has a 3-week history of left below-knee amputation stump pain. CT scan was reviewed. There appears to be fluid collection along the distal BKA stump. This could be infection or could be inflamed bursa. I discussed options of surgery versus interventional radiology for aspiration with patient. I Recommend interventional radiology consultation for aspiration of left BKA stump fluid collection with possible drain placement--need to send fluid for cell count, cultures, and Gram stain If patient does have infection, he will need surgical irrigation and debridement of left BKA stump. N.p.o. after midnight--possible surgery tomorrow The risk and benefits of surgery were discussed in depth with patient. The risk of surgery include bleeding, infection, injuries to arteries, nerves, or blood vessels, infection, wound complications, need for above-knee amputation, and need for further surgery. I also discussed medical complications including blood clots, pneumonia, stroke, heart attack, and . Informed consent was obtained and all questions were answered. A mid-level provider in my office (nurse practitioner or physician catering administrative assistant) may see this patient on follow-up visits and continue to implement the objectives of this plan including: Starting or adjusting medications, injections , cast application, orthotics, brace application, physical therapy, radiological studies (including x-ray, MRI, CT, ultrasound, bone scan), vascular studies, neurologic studies, specialist consultation, and proceeding with surgical management, as appropriate.
[2018-02-01 10:06] LABS: Appearance,Synovial Fluid Marked (Clear); Color,Synovial Fluid Brown (Straw)
[2018-02-01 10:07] LABS: Lymphocytes,Synovial Fluid 1 %; Neutrophils,Synovial Fluid 98 % (0-25)
[2018-02-01] MEDS ORDERED: Insulin Detemir Inj 1,000 UNIT/10 ML Vial SQ ONE (11:00)
--- NOTE | 2018-02-01 11:04 | IR ---
EXAM DATE: 02/01/2018 9:16 AM EST AGE/SEX: 58 years / Male INDICATIONS: Patient with history of Cellulitis of left below the knee amputation in need of aspirat ion of fluid for evaluation. CLINICAL DATA: This is the patient's initial encounter. Patient reports that signs and symptoms have been present for 3 weeks and indicates a pain score of 7/10. MEDICAL/SURGICAL HISTORY: . Anxiety, Depression, Diabetes, HTN, Hyperlipidemia . Below the Kne e Amputation. [place] [facility] [place]/31[place]. . IMAGE SERIES: 2 DEVICE(S): 18 gauge needle was placed into the Left Lower extremity, BKA. RESPONSE: Pain Score Pre Procedure: 7/10 Pain Score Post Procedure: 7/10 FLUID: Total volume of 10 cc of purulent fluid was removed. Fluid was sent to lab for ordered studies. . . PROCEDURE : 1. Ultrasound guidance 2. Aspiration of BKA stump fluid collection The risks, benefits and alternatives to the procedure were explained and verbal and written consent w as obtained. The site was prepped in sterile fashion. Full sterile technique was used, including ca p, mask, sterile gloves and gown and a large sterile sheet. Hand hygiene and 2% chlorhexidine and/or betadine/alcohol prep was utilized per protocol for cutaneous antisepsis. The skin and subcutaneous tissues were infiltrated with local anesthetic solution. Ultrasound examination of the BKA stump demonstrates an ill-defined heterogeneous fluid collection co rresponding to the collection noted on CT exam. Skin overlying the region was prepped and draped in u sual sterile fashion. 1% lidocaine solution was injected for local and seizure. An 18-gauge needle wa s advanced into the fluid under direct ultrasound guidance. Subsequently, 10 cc of purulent fluid was removed. No additional fluid could be removed although there was a small residual collection. The patient tolerated the procedure well and there were no complications. CONCLUSION: 1. Ultrasound-guided aspiration of BKA stump fluid collection yielding 10 cc of purulent fluid. Electronically signed by: Evert Bundy MD 02/01/2018 11:03 AM EST
--- NOTE | 2018-02-01 16:01 | P.CONPOD ---
History of Present Illness Service: podiatry Consult date: 02/01/18 Reason for Consult: right foot infection Primary Care Provider: UNKNOWN History of Present Illness: Patient relates many months history of wound right plantar foot. He has no pain currently. He is unsure if he has ever had a vascular evaluation. Review of Systems All other systems reviewed negative except as stated in HPI [facility] - History History Provided By: Patient - Medical History Medical History: Medical History (Last Reviewed 02/01/18 @ 09:43 by Flaquito Lawler MD) Anxiety Depression Diabetes HTN (hypertension) Hyperlipidemia - Surgical History Surgical History: Surgical History (Last Reviewed 02/01/18 @ 09:43 by Flaquito Lawler MD) Hx of BKA - Family History Family History: Family History (Last Reviewed 02/01/18 @ 09:43 by Flaquito Lawler MD) Mother Diabetes - Tobacco History Second Hand Smoke Exposure: No Tobacco Use In Past 30 Days: No Smoking Status: Never smoker - Alcohol History How Often Do You Have a Drink Containing Alcohol: Never - Substance Use History Substance History: No History of Abuse - Travel History Recent Travel in the [place] Within the Last 8 Weeks: No Recent Travel Out of the Country Within the Last 8 Weeks: No - Immunization History Tetanus Immunization: <5 Years Tetanus Immunization Year if Known: 2014 Hx Influenza Vaccine This Season: No Medications and Allergies Active Medications: Active Medications Acetaminophen (Tylenol) 650 mg PO Q4H PRN PRN Reason: Temp > 100.4 Hydrocodone Bitart/Acetaminophen ([place] 5/325) 1 tab PO Q4H PRN PRN Reason: PAIN SCALE 1 TO 5 Hydrocodone Bitart/Acetaminophen ([place] 5/325) 2 tab PO Q4H PRN PRN Reason: PAIN SCALE 6 TO 10 Last Admin: 02/01/18 11:50 Dose: 2 tab Al Hydroxide/Mg Hydroxide (Milk Of Magnsweta Liq) 30 ml PO Q12H PRN PRN Reason: Mild Constipation Alprazolam (Xanax) 0.5 mg PO BID [facility] Last Admin: 02/01/18 08:19 Dose: 0.5 mg Bisacodyl (Dulcolax Supp) 10 mg RECTAL DAILY PRN PRN Reason: SEVERE CONSITIPATION Clonidine HCl (Catapres) 0.1 mg PO Q6H PRN PRN Reason: SBP>160, DBP>90 Dextrose (D50w Vial) 50 ml IV.PUSH UNSCH PRN PRN Reason: PER HYPOGLYCEMIA PROTOCOL Duloxetine HCl (Cymbalta) 30 mg PO DAILY [facility] Last Admin: 02/01/18 08:19 Dose: 30 mg Glucagon (Glucagon Inj) 1 mg OTHER PRN PRN PRN Reason: for Hypoglycemia Protocol Sodium Chloride (Ns Inj) 1,000 mls @ 100 mls/hr IV.CONT .Q10H [facility] Last Infusion: 02/01/18 12:25 Dose: 100 mls/hr Piperacillin/Tazobactam/Dextrose (Zosyn 4.5 Gm Premix) 4.5 gm in 100 mls @ 200 mls/hr IV.SIG Q6H [facility] Last Admin: 02/01/18 12:01 Dose: 100 mls/hr Vancomycin HCl 1,500 mg/ (Sodium Chloride) 515 mls @ 250 mls/hr IV.SIG Q18H [facility] Insulin Aspart (Novolog Insulin Correctional Sugar Inj) 0 unit SQ 08,12,17,21, 03 [facility]; Protocol Last Admin: 02/01/18 11:52 Dose: 7 unit Insulin Aspart (Novolog Insulin Correctional Sugar Inj) 5 unit SQ TIDAC [facility]; Protocol Last Admin: 02/01/18 11:53 Dose: 5 unit Insulin Detemir (Levemir Inj) 25 unit SQ [facility] Lactulose (Lactulose Liq) 30 ml PO DAILY PRN PRN Reason: SEVERE CONSITIPATION Miscellaneous Information ([facility] Ordered Lab Info) 0 each OTHER ONCE ONE Stop: 02/03/18 05:46 Morphine Sulfate (Morphine Inj) 4 mg IV.PUSH Q4H PRN PRN Reason: BREAKTHROUGH PAIN Ondansetron HCl (Zofran Inj) 4 mg IV.PUSH Q6H PRN PRN Reason: NAUSEA OR VOMITING Pharmacy Profile Note (Vancomycin Consult Pharmacy) 1 each OTHER UNSCH PRN PRN Reason: Pharmacy to dose Senna/Docusate Sodium (Alba-Colace) 1 tab PO BID [facility] Last Admin: 02/01/18 08:19 Dose: 1 tab Sennosides (Senokot) 17.2 mg PO Q12H PRN PRN Reason: Moderate Constipation Sodium Chloride (Ns Flush) 2 ml IV.FLUSH BID [facility] Last Admin: 02/01/18 08:21 Dose: Not Given Sodium Chloride (Ns Flush) 2 ml IV.FLUSH PRN PRN PRN Reason: FLUSH AFTER USING IV ACCESS Temazepam (Restoril) 15 mg PO HS PRN PRN Reason: INSOMNIA Allergies Allergy/AdvReac Type Severity Reaction Status Date / Time No Known Allergies Allergy Verified 01/31/18 15:24 Home Medications Medication Instructions Recorded Confirmed Type alprazolam [Xanax] 0.5 mg PO BID 01/31/18 01/31/18 History duloxetine [Cymbalta] 30 mg PO DAILY 01/31/18 01/31/18 History enalapril maleate 10 mg PO DAILY 01/31/18 01/31/18 History insulin regular human 11 units SUBCUT TID 01/31/18 01/31/18 History metformin 1,000 mg PO BID 01/31/18 01/31/18 History methotrexate sodium 15 mg PO DAILY 01/31/18 01/31/18 History Physical Exam Vital signs: Vital Signs 01/31/18 19:15 01/31/18 20:00 02/01/18 00:00 Temperature 99.0 F 99.5 F Pulse Rate 101 H 107 H 103 H Respiratory Rate 20 20 20 Blood Pressure 155/66 H 112/64 130/60 Pulse Oximetry 94 L 92 L 94 L 02/01/18 08:00 02/01/18 12:00 Temperature 97.9 F 97.8 F Pulse Rate 92 H 85 Respiratory Rate 18 18 Blood Pressure 113/55 L 124/57 L Pulse Oximetry 96 95 Intake & Output 01/31/18 02/01/18 02/01/18 18:59 06:59 18:59 Intake Total 1999 640 / 640 300 / 300 Output Total 700 / 700 Balance 1999 -60 / -60 300 / 300 Weight 124.738 kg 115.8 kg 115 kg Intake: IV 1999 640 / 640 300 / 300 NS Inj 1,000 ML @ 100 mls/hr IV 200 / 200 .CONT .Q10H [facility] Rx#:[id number] Zosyn 4.5 GM Premix 4.5 gm In 100 / 100 100 / 100 100 ml @ 200 mls/hr IV.SIG Q6H [facility] Rx#:[id number] NS Inj 1,000 ML @ Wide Open IV. 1999 SIG BOLUS ONE Rx#:[id number] Vancomycin Inj 2,000 MG In NS 540 / 540 Inj 500 ML @ 270 mls/hr IV.SIG ONCE ONE Rx#:[id number] Output: Urine 700 / 700 Other: Weight On Admission 115 kg Narrative: right sub 1st metatarsal head area with draining purulent wound and hyperkeratotic rim. Chronic appearance. Minimal edema/erythema. No foul odor. Sensation absent to light touch. Nonpalpable pedal pulses Results - Labs CBC & Chem 7: 02/01/18 05:35 02/01/18 05:35 Laboratory Results - last 24 hr 01/31/18 01/31/18 01/31/18 15:45 15:45 15:45 WBC 11.1 H RBC 4.84 Hgb 15.2 Hct 45.6 MCV 94.1 MCH 31.3 MCHC 33.3 RDW 13.2 Plt Count 164 MPV 9.9 Neut % (Auto) 79.2 H Lymph % (Auto) 9.1 [place] % (Auto) 10.3 H Eos % (Auto) 0.6 Baso % (Auto) 0.8 Neut # (Auto) 8.8 H Lymph # (Auto) 1.0 [place] # (Auto) 1.1 H Eos # (Auto) 0.1 Baso # (Auto) 0.1 WBC Differential . Differential Comment Auto diff final ESR 1 Sodium 133 L Potassium 5.0 Chloride 93 L Carbon Dioxide 26.4 Anion Gap 14 BUN 21 H Creatinine 1.72 H Estimated GFR 41 L POC Glucose Random Glucose 416 H Hemoglobin A1c Lactic Acid Calcium 8.9 C-Reactive Protein 17.60 H Synovial Color Synovial Appearance Synovial RBC Synovial Nuc Cells Synovial Neutrophils Synovial Lymphocytes Synovial Monocytes 01/31/18 01/31/18 01/31/18 15:45 17:35 20:19 WBC RBC Hgb Hct MCV MCH MCHC RDW Plt Count MPV Neut % (Auto) Lymph % (Auto) [place] % (Auto) Eos % (Auto) Baso % (Auto) Neut # (Auto) Lymph # (Auto) [place] # (Auto) Eos # (Auto) Baso # (Auto) WBC Differential Differential Comment ESR Sodium Potassium Chloride Carbon Dioxide Anion Gap BUN Creatinine Estimated GFR POC Glucose 424 H Random Glucose Hemoglobin A1c 11.9 H Lactic Acid 1.5 Calcium C-Reactive Protein Synovial Color Synovial Appearance Synovial RBC Synovial Nuc Cells Synovial Neutrophils Synovial Lymphocytes Synovial Monocytes 1102/01/18 02/01/18 05:35 05:35 07:44 WBC 11.9 H RBC 4.23 L Hgb 13.5 Hct 39.3 MCV 92.7 MCH 31.8 MCHC 34.3 RDW 13.1 Plt Count 149 L MPV 10.1 Neut % (Auto) 80.2 H Lymph % (Auto) 9.8 [place] % (Auto) 9.4 H Eos % (Auto) 0.3 Baso % (Auto) 0.3 Neut # (Auto) 9.5 H Lymph # (Auto) 1.2 [place] # (Auto) 1.1 H Eos # (Auto) 0.0 Baso # (Auto) 0.0 WBC Differential . Differential Comment Auto diff final ESR Sodium 134 L Potassium 4.8 Chloride 97 L Carbon Dioxide 28.8 Anion Gap 8 BUN 19 H Creatinine 1.59 H Estimated GFR 45 L POC Glucose 321 H Random Glucose 359 H Hemoglobin A1c Lactic Acid Calcium 8.5 C-Reactive Protein Synovial Color Synovial Appearance Synovial RBC Synovial Nuc Cells Synovial Neutrophils Synovial Lymphocytes Synovial Monocytes 02/01/18 02/01/18 08:47 11:34 WBC RBC Hgb Hct MCV MCH MCHC RDW Plt Count MPV Neut % (Auto) Lymph % (Auto) [place] % (Auto) Eos % (Auto) Baso % (Auto) Neut # (Auto) Lymph # (Auto) [place] # (Auto) Eos # (Auto) Baso # (Auto) WBC Differential Differential Comment ESR Sodium Potassium Chloride Carbon Dioxide Anion Gap BUN Creatinine Estimated GFR POC Glucose 274 H Random Glucose Hemoglobin A1c Lactic Acid Calcium C-Reactive Protein Synovial Color Brown H Synovial Appearance Marked H Synovial RBC 54398 H Synovial Nuc Cells [id number] H Synovial Neutrophils 98 H Synovial Lymphocytes 1 Synovial Monocytes 1 Microbiology 01/31/18 20:40 Wound - Foot Gram Stain - Final 01/31/18 20:40 Wound - Foot Wound Culture - Preliminary 01/31/18 17:35 Blood - Peripheral Aerobic Blood Culture - Preliminary No growth in 1 day 01/31/18 17:35 Blood - Peripheral Anaerobic Blood Culture - Preliminary No growth in 1 day 01/31/18 17:35 Blood - Peripheral Aerobic Blood Culture - Preliminary No growth in 1 day 01/31/18 17:35 Blood - Peripheral Anaerobic Blood Culture - Preliminary No growth in 1 day - Imaging Impressions Foot X-Ray 01/31/18 00:00 CONCLUSION: Chronic change as described above. Knee CT 01/31/18 16:25 CONCLUSION: 1. Status post [id number] amputation. 2. Nonspecific fluid collection seen inferior to the tibia. This fluid collection abuts the inferior aspect of the remaining aspect of the tibia and extends anteriorly at the distal tibia. This could be a bursa versus other fluid collection including hematoma, seroma or abscess in the correct clinical situation. Aspiration 02/01/18 00:00 CONCLUSION: 1. Ultrasound-guided aspiration of BKA stump fluid collection yielding 10 cc of purulent fluid. - Procedures Interventional evidence specialist Left BKA Stump aspiration 02/01/18 Assessment and Plan - Assessment (1) Osteomyelitis of right foot Code(s): M86.9 - Osteomyelitis, unspecified Status: Acute Plan: Await MRI and vascular evaluation to determine further treatment Will follow
[2018-02-01] MEDS ORDERED: Gadobutrol PF 10 MMOL/10 ML Vial (for RAD) IV.SIG ONE (16:38)
--- NOTE | 2018-02-01 17:14 | MR ---
EXAM DATE: 02/01/2018 5:05 PM EST AGE/SEX: 58 years / Male INDICATIONS: . Right foot pain to the planter surface by the MTPJ. CLINICAL DATA: This is the patient's initial encounter. Patient reports that signs and symptoms have been present for 1 month and indicates a pain score of 1/10. MEDICAL/SURGICAL HISTORY: Diabetes mellitus type II. Hypertension. . Left lower leg sx. COMPARISON: No prior exams available for comparison. TECHNIQUE: Multiplanar, multisequence MRI examination was performed without contrast and after th e intravenous administration of 10 ml Gadavist (gadobutrol) single exam dose. FINDINGS: Bones: The osseous structures are in normal alignment. No evidence of fracture or bony edema. There are no obvious erosions present. Joint Spaces: No joint effusion or loose bodies are seen. The joint spaces are preserved. Tendons: The flexor tendons are intact. Soft Tissues: A soft tissue defect representing the patient's wound is identified along the plantar s urface in the forefoot below the first metatarsophalangeal joint. There is no evidence of deep inflam matory involvement or abscess. The underlying bony structures are unremarkable. Other: The plantar fascia is intact. No signal abnormalities are seen in the plantar musculature. Post Contrast: There are no abnormal areas of enhancement in the marrow, muscle or soft tissues on im ages obtained after intravenous administration of gadolinium. CONCLUSION: 1. Wound along the plantar surface of the forefoot appears fairly superficial without evidence of de ep involvement or underlying abscess. 2. No evidence of osteomyelitis. Electronically signed by: Gregg Costello MD 02/01/2018 5:13 PM EST
[2018-02-01] MEDS: Vancomycin Inj 1,500 MG in Sodium Chlor 0.9% Inj 500 ML IV.SIG SCH (17:20)
[2018-02-01] MEDS: Insulin Detemir Inj 1,000 UNIT/10 ML Vial SQ SCH (20:15)
[2018-02-02] MEDS: Piperacil/Tazo 4.5 GM Premix 4.5 GM/100 ML BAG IV.SIG SCH ×5 (02:23→23:08)
[2018-02-02] MEDS: Sod Chloride 0.9% Inj 1,000 ML IV.CONT SCH ×3 (02:27→11:33)
[2018-02-02] MEDS: Insulin NovoLOG Aspart Correctional Sugar Inj SQ SCH ×8 (03:02→21:43)
[2018-02-02] MEDS ORDERED: Chlorhexidine Gluconate 2% 1 Pack (2 Cloths) TOPICAL ONE (05:16)
[2018-02-02 05:31] LABS: Baso % (Auto) 0.4 % (0.0-2.0); Eos # (Auto) 0.1 th/mm3 (0.0-0.4); Eos % (Auto) 1.4 % (0.0-4.0); Hematocrit 36.8 % (39.0-51.0); Hemoglobin 12.5 gm/dL (13.0-17.0); Lymph # (Auto) 0.9 th/mm3 (1.0-4.8); Lymph % (Auto) 9.2 % (9.0-44.0); Mean Corpuscular Hemoglobin 31.7 pg (27.0-34.0); Mean Corpuscular Volume 93.3 fL (80.0-100.0); Mean Platelet Volume 9.9 fL (7.0-11.0); Mono # (Auto) 0.7 th/mm3 (0.0-0.9); Mono % (Auto) 7.5 % (0.0-8.0); Neut # (Auto) 7.8 th/mm3 (1.8-7.7); Neut % (Auto) 81.5 % (16.0-70.0); Platelet Count 149 th/mm3 (150-450); Red Blood Count 3.95 mil/mm3 (4.50-5.90); Red Cell Distribution Width 12.9 % (11.6-17.2); White Blood Count 9.6 th/mm3 (4.0-11.0)
[2018-02-02 06:03] LABS: Carbon Dioxide 28.3 meq/L (21.0-32.0)
[2018-02-02] MEDS ORDERED: ceFAZolin 1 GM Premix Inj 0 GM/0 ML FROZ.PIGGY IV.SIG ONE (07:36)
[2018-02-02] MEDS ORDERED: Post-op Orders (for Pharmacy) OTHER STA (08:53)
--- NOTE | 2018-02-02 09:00 | P.OP ---
- Preoperative Diagnosis (1) Infection of amputation stump, left lower extremity Date of procedure: 02/02/18 Procedure: Irrigation and debridement of left tibia/BKA stump abscess Anesthesia: GETA Surgeon: Flaquito Lawler MD Learning Coach: MADDY Duke PA-C The surgical procedure was assisted by my physician shop assistant. My P.A. presence was necessary throughout this case for the manipulation and positioning of the surgical extremity. My P.A. was assisting me throughout the duration of this procedure. The skill set of a physician shop assistant was medically necessary to complete this procedure. During the surgical case the surgical appliances salesperson was working at the back table and the physician shop assistant was directly assisting me. Operation and Findings: Rashid was seen and evaluated preoperatively. MRI showed fluid collection along his left below knee amputation stump. Interventional radiology did aspiration which yielded purulent fluid. Informed consent was obtained preoperatively. OpSite was marked. He is brought the operating room. He was given IV sedation and general anesthesia. Left leg was prepped with alcohol followed Hibiclens and draped in usual sterile fashion. Timeout procedure was performed. Procedure began with a 4 inch incision through the previous scar from below- knee amputation. Subcutaneous tissue was dissected with Bovie. Muscular fascia was incised. There was a deep pocket of purulent fluid along the tibia. The abscess was completely debrided. Specimen cultures were obtained. Curettes were used to debride the tibia and abscess. After excisional debridement was completed, the wound was thoroughly irrigated with pulsatile lavage. At this point a wound VAC was placed along the wound. VAC dressing was sealed appropriately. Patient will need additional surgery for repeat irrigation and possible wound closure next week. Patient was awakened and transferred to recovery room in stable condition.
--- NOTE | 2018-02-02 09:17 | P.PNOP ---
Subjective Interval history: Transferred to PACU in stable condition Physical Exam Vital signs: Vital Signs 02/01/18 12:00 02/01/18 16:00 02/01/18 20:00 Temperature 97.8 F 98 F 97.6 F Pulse Rate 85 79 79 Respiratory Rate 18 20 15 Blood Pressure 124/57 L 121/56 L 119/59 L Pulse Oximetry 95 95 96 02/02/18 00:00 02/02/18 04:00 02/02/18 06:55 Temperature 98 F 98.9 F 98.4 F Pulse Rate 102 H 86 88 Respiratory Rate 18 17 18 Blood Pressure 179/74 H 97/54 L 115/62 Pulse Oximetry 94 L 97 96 Intake & Output 02/01/18 02/02/18 02/02/18 18:59 06:59 18:59 Intake Total 400 / 400 2715 / 2715 700 / 700 Output Total 380 / 380 500 / 500 50 / 50 Balance 2215 / 2215 650 / 650 Weight 115 kg 117.6 kg Intake: IV 400 / 400 2715 / 2715 NS Inj 1,000 ML @ 100 mls/hr IV 200 / 200 2000 / 2000 .CONT .Q10H [facility] Rx#:[id number] Zosyn 4.5 GM Premix 4.5 gm In 200 / 200 200 / 200 100 ml @ 200 mls/hr IV.SIG Q6H [facility] Rx#:[id number] Vancomycin Inj 1,500 MG In NS 515 / 515 Inj 500 ML @ 250 mls/hr IV.SIG Q18H [facility] Rx#:[id number] Anesthesia Amount 700 / 700 Output: Urine 380 / 380 500 / 500 Estimated Blood Loss 50 / 50 Other: # Voids 3 Weight On Admission 115 kg Narrative: Left lower extremity: Knee immobilizer in place. Wound VAC intact. Appropriate seal Results - Labs CBC & Chem 7: 02/02/18 04:35 02/02/18 04:35 Laboratory Results - last 24 hr 01/31/18 02/01/18 02/01/18 15:45 08:47 11:34 WBC RBC Hgb Hct MCV MCH MCHC RDW Plt Count MPV Neut % (Auto) Lymph % (Auto) [place] % (Auto) Eos % (Auto) Baso % (Auto) Neut # (Auto) Lymph # (Auto) [place] # (Auto) Eos # (Auto) Baso # (Auto) WBC Differential Differential Comment Sodium Potassium Chloride Carbon Dioxide Anion Gap BUN Creatinine Estimated GFR POC Glucose 274 H Random Glucose Hemoglobin A1c 11.9 H Calcium Synovial Color Brown H Synovial Appearance Marked H Syn[place] RBC 83085 H Synovial Nuc Cells [id number] H Synovial Neutrophils 98 H Synovial Lymphocytes 1 Synovial Monocytes 1 02/01/18 02/02/18 02/02/18 19:57 02:31 04:35 WBC RBC Hgb Hct MCV MCH MCHC RDW Plt Count MPV Neut % (Auto) Lymph % (Auto) [place] % (Auto) Eos % (Auto) Baso % (Auto) Neut # (Auto) Lymph # (Auto) [place] # (Auto) Eos # (Auto) Baso # (Auto) WBC Differential Differential Comment Sodium 136 Potassium 4.0 D Chloride 101 Carbon Dioxide 28.3 Anion Gap 7 BUN 14 Creatinine 1.33 H Estimated GFR 55 L POC Glucose 205 H 177 H Random Glucose 181 H D Hemoglobin A1c Calcium 8.0 L Synovial Color Synovial Appearance Synovial RBC Synovial Nuc Cells Synovial Neutrophils Synovial Lymphocytes Synovial Monocytes 02/02/18 02/02/18 04:35 06:53 WBC 9.6 RBC 3.95 L Hgb 12.5 L Hct 36.8 L MCV 93.3 MCH 31.7 MCHC 34.0 RDW 12.9 Plt Count 149 L MPV 9.9 Neut % (Auto) 81.5 H Lymph % (Auto) 9.2 [place] % (Auto) 7.5 Eos % (Auto) 1.4 Baso % (Auto) 0.4 Neut # (Auto) 7.8 H Lymph # (Auto) 0.9 L [place] # (Auto) 0.7 Eos # (Auto) 0.1 Baso # (Auto) 0.0 WBC Differential . Differential Comment Auto diff final Sodium Potassium Chloride Carbon Dioxide Anion Gap BUN Creatinine Estimated GFR POC Glucose 142 H Random Glucose Hemoglobin A1c Calcium Synovial Color Synovial Appearance Synovial RBC Synovial Nuc Cells Synovial Neutrophils Synovial Lymphocytes Synovial Monocytes Microbiology 02/01/18 08:47 Fluid - Synovial Fluid Gram Stain - Final 02/01/18 08:47 Fluid - Synovial Fluid Body Fluid Culture - Preliminary Staphylococcus species 01/31/18 17:35 Blood - Peripheral Aerobic Blood Culture - Preliminary gram positive cocci 01/31/18 17:35 Blood - Peripheral Anaerobic Blood Culture - Preliminary No growth in 1 day 01/31/18 20:40 Wound - Foot Gram Stain - Final 01/31/18 20:40 Wound - Foot Wound Culture - Preliminary 01/31/18 17:35 Blood - Peripheral Aerobic Blood Culture - Preliminary No growth in 1 day 01/31/18 17:35 Blood - Peripheral Anaerobic Blood Culture - Preliminary No growth in 1 day - Imaging Impressions Aspiration 02/01/18 00:00 CONCLUSION: 1. Ultrasound-guided aspiration of BKA stump fluid collection yielding 10 cc of purulent fluid. Foot MRI 02/01/18 00:00 CONCLUSION: 1. Wound along the plantar surface of the forefoot appears fairly superficial without evidence of deep involvement or underlying abscess. 2. No evidence of osteomyelitis. - Procedures Interventional search engine optimization specialist Left BKA Stump aspiration 02/01/18 Assessment and Plan - Assessment and Plan Irrigation debridement of abscess to left below-knee amputation with wound VAC application POD 0 Maintain knee immobilizer and wound VAC. Wound VAC is set at 125 mmHg at DPC 3-1 We will plan on washing out the left lower extremity Wednesday or Wednesday with final closure Follow cultures IV antibiotics per infectious disease
[2018-02-02] MEDS: Sodium Chloride 0.9% 2 ML Flush BID IV.FLUSH SCH ×2 (09:19→23:09)
[2018-02-02] MEDS: Senna/Docusate Sodium 8.6/50 MG Tablet PO SCH ×2 (09:19→23:09)
[2018-02-02] MEDS ORDERED: fentaNYL Citrate Inj 100 MCG/2 ML Ampul ONE (09:22)
[2018-02-02] MEDS ORDERED: *morphine SULFATE 8 MG/ML PERIprocedure ONLY ONE (10:07)
--- NOTE | 2018-02-02 10:26 | P.PN ---
Subjective Interval history: Patient is in bed he appears chronically ill. Family very supportive bedside. Plan for surgery tomorrow by podiatry. Patient says he has pain at the surgical site at the stump on the left side. No fever or chills overnight. Some nausea however no vomiting. He has decreased appetite trying to eat. Physical Exam Vital signs: Vital Signs 02/01/18 12:00 02/01/18 16:00 02/01/18 20:00 Temperature 97.8 F 98 F 97.6 F Pulse Rate 85 79 79 Respiratory Rate 18 20 15 Blood Pressure 124/57 L 121/56 L 119/59 L Pulse Oximetry 95 95 96 02/02/18 00:00 02/02/18 04:00 02/02/18 06:55 Temperature 98 F 98.9 F 98.4 F Pulse Rate 102 H 86 88 Respiratory Rate 18 17 18 Blood Pressure 179/74 H 97/54 L 115/62 Pulse Oximetry 94 L 97 96 02/02/18 09:14 02/02/18 09:30 02/02/18 09:45 Temperature 99.3 F Pulse Rate 97 H 97 H 100 H Respiratory Rate 14 12 14 Blood Pressure 117/71 129/94 H 134/91 H Pulse Oximetry 95 99 95 Intake & Output 02/01/18 02/02/18 02/02/18 18:59 06:59 18:59 Intake Total 400 / 400 2715 / 2715 700 / 700 Output Total 380 / 380 500 / 500 50 / 50 Balance 2215 / 2215 650 / 650 Weight 115 kg 117.6 kg Intake: IV 400 / 400 2715 / 2715 NS Inj 1,000 ML @ 100 mls/hr IV 200 / 200 1999 / 1999 .CONT .Q10H [facility] Rx#:[id number] Zosyn 4.5 GM Premix 4.5 gm In 200 / 200 200 / 200 100 ml @ 200 mls/hr IV.SIG Q6H [facility] Rx#:[id number] Vancomycin Inj 1,500 MG In NS 515 / 515 Inj 500 ML @ 250 mls/hr IV.SIG Q18H [facility] Rx#:[id number] Anesthesia Amount 700 / 700 Output: Urine 380 / 380 500 / 500 Estimated Blood Loss 50 / 50 Other: # Voids 3 Weight On Admission 115 kg Narrative: GENERAL: No acute distress. moderately disheveled. SKIN: Warm and dry. Seborrheic dermatitis over the face. HEENT: AT/NC. PERRLA. EOMI. No scleral icterus or conjunctival injection. MMM. NECK: Supple no tender LAD or JVD. CARDIOVASCULAR: RRR no m/r/g. RESPIRATORY: CTAB without wheezes or crackles. ABDOMEN: +BS, soft, NT, ND. EXTREMITIES: Left BKA. Wound vac in place. Knee immobilizer in place. NEURO: Awake and alert. Nonfocal. Speech fluent. Results - Labs CBC & Chem 7: 02/02/18 04:35 02/02/18 04:35 Laboratory Results - last 24 hr 01/31/18 02/01/18 02/01/18 15:45 11:34 19:57 WBC RBC Hgb Hct MCV MCH MCHC RDW Plt Count MPV Neut % (Auto) Lymph % (Auto) [place] % (Auto) Eos % (Auto) Baso % (Auto) Neut # (Auto) Lymph # (Auto) [place] # (Auto) Eos # (Auto) Baso # (Auto) WBC Differential Differential Comment Sodium Potassium Chloride Carbon Dioxide Anion Gap BUN Creatinine Estimated GFR POC Glucose 274 H 205 H Random Glucose Hemoglobin A1c 11.9 H Calcium 02/02/18 02/02/18 02/02/18 02:31 04:35 04:35 WBC 9.6 RBC 3.95 L Hgb 12.5 L Hct 36.8 L MCV 93.3 MCH 31.7 MCHC 34.0 RDW 12.9 Plt Count 149 L MPV 9.9 Neut % (Auto) 81.5 H Lymph % (Auto) 9.2 [place] % (Auto) 7.5 Eos % (Auto) 1.4 Baso % (Auto) 0.4 Neut # (Auto) 7.8 H Lymph # (Auto) 0.9 L [place] # (Auto) 0.7 Eos # (Auto) 0.1 Baso # (Auto) 0.0 WBC Differential . Differential Comment Auto diff final Sodium 136 Potassium 4.0 D Chloride 101 Carbon Dioxide 28.3 Anion Gap 7 BUN 14 Creatinine 1.33 H Estimated GFR 55 L POC Glucose 177 H Random Glucose 181 H D Hemoglobin A1c Calcium 8.0 L 02/02/18 02/02/18 06:53 09:31 WBC RBC Hgb Hct MCV MCH MCHC RDW Plt Count MPV Neut % (Auto) Lymph % (Auto) [place] % (Auto) Eos % (Auto) Baso % (Auto) Neut # (Auto) Lymph # (Auto) [place] # (Auto) Eos # (Auto) Baso # (Auto) WBC Differential Differential Comment Sodium Potassium Chloride Carbon Dioxide Anion Gap BUN Creatinine Estimated GFR POC Glucose 142 H 138 H Random Glucose Hemoglobin A1c Calcium Microbiology 02/01/18 08:47 Fluid - Synovial Fluid Gram Stain - Final 02/01/18 08:47 Fluid - Synovial Fluid Body Fluid Culture - Preliminary Staphylococcus species 01/31/18 17:35 Blood - Peripheral Aerobic Blood Culture - Preliminary gram positive cocci 01/31/18 17:35 Blood - Peripheral Anaerobic Blood Culture - Preliminary No growth in 1 day 01/31/18 20:40 Wound - Foot Gram Stain - Final 01/31/18 20:40 Wound - Foot Wound Culture - Preliminary 01/31/18 17:35 Blood - Peripheral Aerobic Blood Culture - Preliminary No growth in 1 day 01/31/18 17:35 Blood - Peripheral Anaerobic Blood Culture - Preliminary No growth in 1 day - Imaging Impressions Aspiration 02/01/18 00:00 CONCLUSION: 1. Ultrasound-guided aspiration of BKA stump fluid collection yielding 10 cc of purulent fluid. Foot MRI 02/01/18 00:00 CONCLUSION: 1. Wound along the plantar surface of the forefoot appears fairly superficial without evidence of deep involvement or underlying abscess. 2. No evidence of osteomyelitis. - Procedures s/p Irrigation debridement of abscess to left below-knee amputation with wound VAC application by Dr Tejada 02/01/18 Left BKA Stump aspiration 02/01/18 by IR Assessment and Plan - Assessment (1) SENG (acute kidney injury) Code(s): N17.9 - Acute kidney failure, unspecified Status: Acute (2) Cellulitis Code(s): L03.90 - Cellulitis, unspecified Status: Acute (3) Diabetic foot ulcer Code(s): E11.621 - Type 2 diabetes mellitus with foot ulcer; L97.509 - Non- pressure chronic ulcer of other part of unspecified foot with unspecified severity Status: Acute - Plan 58 YOWM with IDDM, HLD, depression, anxiety, and history of L BKA admitted for BKA stump cellulitis with possible abscess as well as right diabetic foot ulcer. 1. Cellulitis and possible abscess of L BKA stump - 02/01: Seen by Orthopedic residential support specialist saw fluid collection along the distal BKA stump, could be infection versus inflamed bursa, asked for Interventional Radiology for aspiration and sent fluid for cell count, cultures and gram stain, left NPO for probable surgery for tomorrow. - s/p Irrigation debridement of abscess to left below-knee amputation with wound VAC application by Dr Tejada 02/01/18 Left BKA Stump aspiration 02/01/18 by IR Maintain knee immobilizer and wound VAC. Wound VAC is set at 125 mmHg at DPC 3-1 We will plan on washing out the left lower extremity Wednesday or Wednesday with final closure Follow cultures IV antibiotics per infectious disease 2. R diabetic foot ulcer with signs of infection - Right plantar wound at the ball of the foot that has essentially not been treated or had wound care - Obtain culture and Gram stain - IV antibiotics as above - XR with no signs of osteo - Consult podiatry and wound care nurse.'s plan for surgery 02/03/18 3. Diabetes mellitus with hyperglycemia - uncontrolled, follow hemoglobin A1C, pre meal 5 units of Regular Insulin, increase Detemir to 25 units daily and Medium sliding scale. 4. Acute kidney injury - Pt denies any history of CKD though likely has underlying renal insufficiency - Last creatinine on file 2015 was 1.48 - Creatinine 1.72 on admission - Hold home LALO inhibitor and metformin - Watch creatinine carefully while on vancomycin and Zosyn, if worsens may have to change abx - IV fluids - Monitor renal function 5. Hyperlipidemia - Continue home statin 6. Anxiety - Continue home Xanax 7. Diabetic neuropathy - Continue home Cymbalta FEN: - Fluids: NS at 100 ml/hr - Electrolytes: mild hyponatremia, providing fluids; borderline elevated potassium, holding home LALO-I in light of SENG, continue to monitor - Nutrition: NPO after midnight DVT prophylaxis: SCDs, hold chemical anticoagulation should patient go to OR for I&D Code Status: Full code. Discussed Condition With: Patient, nurse, family Discharge Planning: Pending improvement and clearance by Specialists. Plan for surgery 02/03/18 (2) Cellulitis Qualifiers: Site of cellulitis: extremity Site of cellulitis of extremity: lower extremity Laterality: left Qualified Code(s): L03.116 - Cellulitis of left lower limb (3) Diabetic foot ulcer Qualifiers: Diabetic foot ulcer location: midfoot Diabetes mellitus type: type 2 Laterality: right
[2018-02-02] MEDS: Vancomycin Inj 1,500 MG in Sodium Chlor 0.9% Inj 500 ML IV.SIG SCH (11:31)
[2018-02-02] MEDS: ALPRAZolam 0.5 MG Tablet PO SCH ×2 (11:31→21:42)
--- NOTE | 2018-02-02 14:00 | P.CONVS ---
History of Present Illness Service: Vascular surgery Consult date: 02/02/18 Primary Care Provider: UNKNOWN Chief Complaint: Right foot wound History of Present Illness: 58-year-old male who presented with left BKA stump abscess status post incision and drainage, right foot diabetic ulcer. He denies any right lower extremity claudication or rest pain. [facility] - History History Provided By: Patient - Medical History Medical History: Medical History (Last Reviewed 02/01/18 @ 09:43 by Flaquito Lawler MD) Anxiety Depression Diabetes HTN (hypertension) Hyperlipidemia - Surgical History Surgical History: Surgical History (Last Reviewed 02/01/18 @ 09:43 by Flaquito Lawler MD) Hx of BKA - Family History Family History: Family History (Last Reviewed 02/01/18 @ 09:43 by Flaquito Lawler MD) Mother Diabetes - Tobacco History Second Hand Smoke Exposure: No Tobacco Use In Past 30 Days: No Smoking Status: Never smoker - Alcohol History How Often Do You Have a Drink Containing Alcohol: Never - Substance Use History Substance History: No History of Abuse - Travel History Recent Travel in the [place] Within the Last 8 Weeks: No Recent Travel Out of the Country Within the Last 8 Weeks: No - Immunization History Tetanus Immunization: <5 Years Tetanus Immunization Year if Known: 2014 Hx Influenza Vaccine This Season: No Medications and Allergies Active Medications: Active Medications Acetaminophen (Tylenol) 650 mg PO Q4H PRN PRN Reason: Temp > 100.4 Hydrocodone Bitart/Acetaminophen ([place] 5/325) 1 tab PO Q4H PRN PRN Reason: PAIN SCALE 1 TO 5 Hydrocodone Bitart/Acetaminophen ([place] 5/325) 2 tab PO Q4H PRN PRN Reason: PAIN SCALE 6 TO 10 Last Admin: 02/02/18 11:30 Dose: 2 tab Al Hydroxide/Mg Hydroxide (Milk Of Magnsweta Liq) 30 ml PO Q12H PRN PRN Reason: Mild Constipation Alprazolam (Xanax) 0.5 mg PO BID [facility] Last Admin: 02/02/18 11:31 Dose: 0.5 mg Aspirin (Ecotrin) 81 mg PO Q12H [facility] Bisacodyl (Dulcolax Supp) 10 mg RECTAL DAILY PRN PRN Reason: SEVERE CONSITIPATION Clonidine HCl (Catapres) 0.1 mg PO Q6H PRN PRN Reason: SBP>160, DBP>90 Dextrose (D50w Vial) 50 ml IV.PUSH UNSCH PRN PRN Reason: PER HYPOGLYCEMIA PROTOCOL Duloxetine HCl (Cymbalta) 30 mg PO DAILY [facility] Last Admin: 02/02/18 11:30 Dose: 30 mg Glucagon (Glucagon Inj) 1 mg OTHER PRN PRN PRN Reason: for Hypoglycemia Protocol Sodium Chloride (Ns Inj) 1,000 mls @ 100 mls/hr IV.CONT .Q10H [facility] Last Admin: 02/02/18 11:33 Dose: 100 mls/hr Piperacillin/Tazobactam/Dextrose (Zosyn 4.5 Gm Premix) 4.5 gm in 100 mls @ 200 mls/hr IV.SIG Q6H [facility] Last Admin: 02/02/18 06:14 Dose: 100 mls/hr Vancomycin HCl 1,500 mg/ (Sodium Chloride) 515 mls @ 250 mls/hr IV.SIG Q18H [facility] Last Admin: 02/02/18 11:31 Dose: 150 mls/hr Lactated Ringer's (Lr 1000 Ml Inj) 1,000 mls @ 30 mls/hr IV.SIG .Q24H [facility] Stop: 02/03/18 05:29 Last Admin: 02/02/18 10:16 Dose: Not Given Insulin Aspart (Novolog Insulin Correctional Sugar Inj) 0 unit SQ 08,12,17,21, 03 [facility]; Protocol Last Admin: 02/02/18 11:35 Dose: 2 unit Insulin Aspart (Novolog Insulin Correctional Sugar Inj) 5 unit SQ TIDAC [facility]; Protocol Last Admin: 02/02/18 11:34 Dose: 5 unit Insulin Detemir (Levemir Inj) 25 unit SQ HS [facility] Last Admin: 02/01/18 20:15 Dose: 25 unit Lactulose (Lactulose Liq) 30 ml PO DAILY PRN PRN Reason: SEVERE CONSITIPATION Miscellaneous Information ([facility] [place] [facility] Ordered Lab Info) 0 each OTHER ONCE ONE Stop: 02/03/18 05:46 Miscellaneous Information ([facility] [place] Nursing Information) 0 each OTHER UNSCH PRN PRN Reason: SEE LABEL COMMENTS Stop: 02/03/18 09:13 Morphine Sulfate (Morphine Inj) 4 mg IV.PUSH Q4H PRN PRN Reason: BREAKTHROUGH PAIN Ondansetron HCl (Zofran Inj) 4 mg IV.PUSH Q6H PRN PRN Reason: NAUSEA OR VOMITING Ondansetron HCl (Zofran Odt) 4 mg PO Q6H PRN PRN Reason: NAUSEA OR VOMITING Pharmacy Profile Note (Vancomycin Consult Pharmacy) 1 each OTHER UNSCH PRN PRN Reason: Pharmacy to dose Senna/Docusate Sodium (Alba-Colace) 1 tab PO BID [facility] Last Admin: 02/02/18 09:19 Dose: Not Given Sennosides (Senokot) 17.2 mg PO Q12H PRN PRN Reason: Moderate Constipation Sodium Chloride (Ns Flush) 2 ml IV.FLUSH BID [facility] Last Admin: 02/02/18 09:19 Dose: Not Given Sodium Chloride (Ns Flush) 2 ml IV.FLUSH PRN PRN PRN Reason: FLUSH AFTER USING IV ACCESS Temazepam (Restoril) 15 mg PO HS PRN PRN Reason: INSOMNIA Allergies Allergy/AdvReac Type Severity Reaction Status Date / Time No Known Allergies Allergy Verified 01/31/18 15:24 Home Medications Medication Instructions Recorded Confirmed Type alprazolam [Xanax] 0.5 mg PO BID 01/31/18 01/31/18 History duloxetine [Cymbalta] 30 mg PO DAILY 01/31/18 01/31/18 History enalapril maleate 10 mg PO DAILY 01/31/18 01/31/18 History insulin regular human 11 units SUBCUT TID 01/31/18 01/31/18 History metformin 1,000 mg PO BID 01/31/18 01/31/18 History methotrexate sodium 15 mg PO DAILY 01/31/18 01/31/18 History Physical Exam Vital Signs / I&O: Vital Signs 02/01/18 16:00 02/01/18 20:00 02/02/18 00:00 Temperature 98 F 97.6 F 98 F Pulse Rate 79 79 102 H Respiratory Rate 20 15 18 Blood Pressure 121/56 L 119/59 L 179/74 H Pulse Oximetry 95 96 94 L 02/02/18 04:00 02/02/18 06:55 02/02/18 09:14 Temperature 98.9 F 98.4 F 99.3 F Pulse Rate 86 88 97 H Respiratory Rate 17 18 14 Blood Pressure 97/54 L 115/62 117/71 Pulse Oximetry 97 96 95 02/02/18 09:30 11/21/18 09:45 02/02/18 10:00 Temperature 98.6 F Pulse Rate 97 H 100 H 104 H Respiratory Rate 12 14 15 Blood Pressure 129/94 H 134/91 H 140/77 Pulse Oximetry 99 95 95 02/02/18 10:15 02/02/18 10:21 Temperature Pulse Rate 95 H Respiratory Rate 15 14 Blood Pressure 130/63 Pulse Oximetry 94 L Intake & Output 02/01/18 02/02/18 02/02/18 18:59 06:59 18:59 Intake Total 400 / 400 2715 / 2715 1900 / 1900 Output Total 380 / 380 500 / 500 50 / 50 Balance 2215 / 2215 1850 / 1850 Weight 115 kg 117.6 kg Intake: IV 400 / 400 2715 / 2715 1000 / 1000 NS Inj 1,000 ML @ 100 mls/hr IV 200 / 200 2000 / 2000 1000 / 1000 .CONT .Q10H [facility] Rx#:[id number] Zosyn 4.5 GM Premix 4.5 gm In 200 / 200 200 / 200 100 ml @ 200 mls/hr IV.SIG Q6H [facility] Rx#:[id number] Vancomycin Inj 1,500 MG In NS 515 / 515 Inj 500 ML @ 250 mls/hr IV.SIG Q18H [facility] Rx#:[id number] Anesthesia Amount 900 / 900 Output: Urine 380 / 380 500 / 500 Estimated Blood Loss 50 / 50 Other: Mode Setting Left Leg Intermittent # Voids 3 Weight On Admission 115 kg Neuro: Alert awake oriented x3 HEENT: Normocephalic atraumatic Neck: Supple Heart: S1-S2 Lungs: Clear to auscultation Abdomen: Soft nontender nondistended Vascular: Left BKA stump wound clean dry intact Right first toe wound measured approximately 2 x 2 cm. +1 palpable right posterior tibial pulse Laboratory Results - last 24 hr 02/01/18 02/02/18 02/02/18 19:57 02:31 04:35 WBC RBC Hgb Hct MCV MCH MCHC RDW Plt Count MPV Neut % (Auto) Lymph % (Auto) [place] % (Auto) Eos % (Auto) Baso % (Auto) Neut # (Auto) Lymph # (Auto) [place] # (Auto) Eos # (Auto) Baso # (Auto) WBC Differential Differential Comment Sodium 136 Potassium 4.0 D Chloride 101 Carbon Dioxide 28.3 Anion Gap 7 BUN 14 Creatinine 1.33 H Estimated GFR 55 L POC Glucose 205 H 177 H Random Glucose 181 H D Calcium 8.0 L 02/02/18 02/02/18 02/02/18 04:35 06:53 09:31 WBC 9.6 RBC 3.95 L Hgb 12.5 L Hct 36.8 L MCV 93.3 MCH 31.7 MCHC 34.0 RDW 12.9 Plt Count 149 L MPV 9.9 Neut % (Auto) 81.5 H Lymph % (Auto) 9.2 [place] % (Auto) 7.5 Eos % (Auto) 1.4 Baso % (Auto) 0.4 Neut # (Auto) 7.8 H Lymph # (Auto) 0.9 L [place] # (Auto) 0.7 Eos # (Auto) 0.1 Baso # (Auto) 0.0 WBC Differential . Differential Comment Auto diff final Sodium Potassium Chloride Carbon Dioxide Anion Gap BUN Creatinine Estimated GFR POC Glucose 142 H 138 H Random Glucose Calcium 02/02/18 11:15 WBC RBC Hgb Hct MCV MCH MCHC RDW Plt Count MPV Neut % (Auto) Lymph % (Auto) [place] % (Auto) Eos % (Auto) Baso % (Auto) Neut # (Auto) Lymph # (Auto) [place] # (Auto) Eos # (Auto) Baso # (Auto) WBC Differential Differential Comment Sodium Potassium Chloride Carbon Dioxide Anion Gap BUN Creatinine Estimated GFR POC Glucose 161 H Random Glucose Calcium Microbiology 01/31/18 20:40 Gram Stain - Final Wound - Foot Wound Culture - Preliminary Staphylococcus aureus 01/31/18 17:35 Aerobic Blood Culture - Preliminary Blood - Peripheral No growth in 2 days Anaerobic Blood Culture - Preliminary No growth in 2 days 01/31/18 17:35 Aerobic Blood Culture - Preliminary Blood - Peripheral Staphylococcus coag negative Anaerobic Blood Culture - Preliminary No growth in 2 days 02/01/18 08:47 Gram Stain - Final Fluid - Synovial Fluid Body Fluid Culture - Preliminary Staphylococcus species Impressions Foot X-Ray 01/31/18 00:00 CONCLUSION: Chronic change as described above. Knee X-Ray 01/31/18 15:23 CONCLUSION: Significant soft tissue swelling surrounding the tibial and fibular stump following below-knee amputation noted No evidence of destructive bone changes. Knee CT 01/31/18 16:25 CONCLUSION: 1. Status post [id number] amputation. 2. Nonspecific fluid collection seen inferior to the tibia. This fluid collection abuts the inferior aspect of the remaining aspect of the tibia and extends anteriorly at the distal tibia. This could be a bursa versus other fluid collection including hematoma, seroma or abscess in the correct clinical situation. Aspiration 02/01/18 00:00 CONCLUSION: 1. Ultrasound-guided aspiration of BKA stump fluid collection yielding 10 cc of purulent fluid. Foot MRI 02/01/18 00:00 CONCLUSION: 1. Wound along the plantar surface of the forefoot appears fairly superficial without evidence of deep involvement or underlying abscess. 2. No evidence of osteomyelitis. Assessment and Plan - Plan Right diabetic foot ulcer Rule out peripheral vascular occlusive disease Most likely will heal a toe amputation (palpable posterior tibial pulse). I will confirmed by obtaining ROBERTA and toe pressures (pending). Thank you for allowing me to participate in this patient care. Regino Santillan MD [facility] [phone]
--- NOTE | 2018-02-02 15:37 | ECG ---
Date Performed: 02/02/2018 Time Performed: 05:14:12 PTAGE: 58 years EKG: NORMAL Sinus rhythm RIGHT BUNDLE BRANCH BLOCK WITH SECONDARY ST-T WAVE ABNORMALITIES ABNORMAL ECG Since PREVIOUS TRACING , no significant change noted PREVIOUS TRACIN06/03/2015 23.17 DOCTOR: Leonid Robles Interpretating Date/Time 02/02/2018 15:37:51
[2018-02-02] MEDS: Insulin Detemir Inj 1,000 UNIT/10 ML Vial SQ SCH (21:43)
[2018-02-03] MEDS: Sod Chloride 0.9% Inj 1,000 ML IV.CONT SCH ×4 (00:13→19:16)
[2018-02-03] MEDS: Piperacil/Tazo 4.5 GM Premix 4.5 GM/100 ML BAG IV.SIG SCH ×4 (03:23→23:04)
[2018-02-03] MEDS: Insulin NovoLOG Aspart Correctional Sugar Inj SQ SCH ×8 (03:23→23:05)
[2018-02-03 04:05] LABS: Baso % (Auto) 0.5 % (0.0-2.0); Eos # (Auto) 0.2 th/mm3 (0.0-0.4); Eos % (Auto) 2.3 % (0.0-4.0); Hematocrit 35.5 % (39.0-51.0); Lymph # (Auto) 0.9 th/mm3 (1.0-4.8); Lymph % (Auto) 13.8 % (9.0-44.0); Mean Corpuscular HGB Conc 33.9 % (32.0-36.0); Mean Corpuscular Hemoglobin 31.6 pg (27.0-34.0); Mean Corpuscular Volume 93.2 fL (80.0-100.0); Mean Platelet Volume 9.4 fL (7.0-11.0); Mono # (Auto) 0.6 th/mm3 (0.0-0.9); Mono % (Auto) 8.2 % (0.0-8.0); Neut # (Auto) 5.1 th/mm3 (1.8-7.7); Neut % (Auto) 75.2 % (16.0-70.0); Platelet Count 185 th/mm3 (150-450); White Blood Count 6.8 th/mm3 (4.0-11.0)
[2018-02-03 04:31] LABS: Carbon Dioxide 30.1 meq/L (21.0-32.0); Potassium 3.8 meq/L (3.5-5.1)
[2018-02-03 04:32] LABS: Vancomycin,Trough 20.3 mcg/mL (5.0-10.0)
[2018-02-03] MEDS ORDERED: Pharmacy Ordered Lab Info OTHER ONE (05:45)
[2018-02-03] MEDS: Vancomycin Inj 1,500 MG in Sodium Chlor 0.9% Inj 500 ML IV.SIG SCH ×2 (06:33→12:50)
--- NOTE | 2018-02-03 07:50 | P.PNOP ---
Subjective Interval history: Doing well. No complaints. Wound VAC in place Physical Exam Vital signs: Vital Signs 02/02/18 09:14 02/02/18 09:30 02/02/18 09:45 Temperature 99.3 F Pulse Rate 97 H 97 H 100 H Respiratory Rate 14 12 14 Blood Pressure 117/71 129/94 H 134/91 H Pulse Oximetry 95 99 95 02/02/18 10:00 02/02/18 10:15 02/02/18 10:21 Temperature 98.6 F Pulse Rate 104 H 95 H Respiratory Rate 15 15 14 Blood Pressure 140/77 130/63 Pulse Oximetry 95 94 L 02/02/18 12:00 02/02/18 16:00 02/02/18 20:00 Temperature 97.8 F 99.3 F 97.6 F Pulse Rate 92 H 90 82 Respiratory Rate 18 18 14 Blood Pressure 108/59 L 128/63 113/58 L Pulse Oximetry 99 93 L 96 02/03/18 00:00 02/03/18 06:31 Temperature 98.3 F Pulse Rate 84 Respiratory Rate 16 18 Blood Pressure 104/53 L Pulse Oximetry 96 Intake & Output 02/02/18 02/03/18 02/03/18 18:59 06:59 18:59 Intake Total 2967 / 2967 748 / 748 Output Total 50 / 50 700 / 700 Balance 2917 / 2917 48 / 48 Weight 125.6 kg Intake: IV 2067 / 2067 748 / 748 NS Inj 1,000 ML @ 100 mls/hr IV 1452 / 1452 548 / 548 .CONT .Q10H [facility] Rx#:[id number] Zosyn 4.5 GM Premix 4.5 gm In 100 / 100 200 / 200 100 ml @ 200 mls/hr IV.SIG Q6H [facility] Rx#:[id number] Vancomycin Inj 1,500 MG In NS 515 / 515 Inj 500 ML @ 250 mls/hr IV.SIG Q18H [facility] Rx#:[id number] Anesthesia Amount 900 / 900 Output: Urine 700 / 700 Estimated Blood Loss 50 / 50 Other: Mode Setting Left Leg Intermittent Intermittent Date of Last Bowel Movement 02/01/18 Narrative: Dressing dry. Leg elevated. Wound VAC with minimal drainage Results - Labs CBC & Chem 7: 02/03/18 03:42 02/03/18 03:42 Laboratory Results - last 24 hr 02/01/18 02/02/18 02/02/18 17:10 09:31 11:15 WBC RBC Hgb Hct MCV MCH MCHC RDW Plt Count MPV Neut % (Auto) Lymph % (Auto) Owen % (Auto) Eos % (Auto) Baso % (Auto) Neut # (Auto) Lymph # (Auto) Owen # (Auto) Eos # (Auto) Baso # (Auto) WBC Differential Differential Comment Sodium Potassium Chloride Carbon Dioxide Anion Gap BUN Creatinine Estimated GFR POC Glucose 232 H 138 H 161 H Random Glucose Calcium Vancomycin Trough 02/02/18 02/02/18 02/03/18 17:21 19:52 03:22 WBC RBC Hgb Hct MCV MCH MCHC RDW Plt Count MPV Neut % (Auto) Lymph % (Auto) Owen % (Auto) Eos % (Auto) Baso % (Auto) Neut # (Auto) Lymph # (Auto) Owen # (Auto) Eos # (Auto) Baso # (Auto) WBC Differential Differential Comment Sodium Potassium Chloride Carbon Dioxide Anion Gap BUN Creatinine Estimated GFR POC Glucose 165 H 238 H 149 H Random Glucose Calcium Vancomycin Trough 02/03/18 02/03/18 03:42 03:42 WBC 6.8 RBC 3.80 L Hgb 12.0 L Hct 35.5 L MCV 93.2 MCH 31.6 MCHC 33.9 RDW 13.0 Plt Count 185 MPV 9.4 Neut % (Auto) 75.2 H Lymph % (Auto) 13.8 Owen % (Auto) 8.2 H Eos % (Auto) 2.3 Baso % (Auto) 0.5 Neut # (Auto) 5.1 Lymph # (Auto) 0.9 L Owen # (Auto) 0.6 Eos # (Auto) 0.2 Baso # (Auto) 0.0 WBC Differential . Differential Comment Auto diff final Sodium 139 Potassium 3.8 Chloride 103 Carbon Dioxide 30.1 Anion Gap 6 BUN 14 Creatinine 1.51 H Estimated GFR 48 L POC Glucose Random Glucose 156 H Calcium 8.0 L Vancomycin Trough 20.3 H Microbiology 02/02/18 08:42 Wound - Other Fungal Smear - Final No fungal elements seen 02/02/18 08:42 Wound - Other Fungal Smear - Final No fungal elements seen 02/02/18 08:42 Wound - Other Gram Stain - Final 02/02/18 08:42 Wound - Other Gram Stain - Final 01/31/18 20:40 Wound - Foot Gram Stain - Final 01/31/18 20:40 Wound - Foot Wound Culture - Preliminary Staphylococcus aureus 01/31/18 17:35 Blood - Peripheral Aerobic Blood Culture - Preliminary No growth in 2 days 01/31/18 17:35 Blood - Peripheral Anaerobic Blood Culture - Preliminary No growth in 2 days 01/31/18 17:35 Blood - Peripheral Aerobic Blood Culture - Preliminary Staphylococcus coag negative 01/31/18 17:35 Blood - Peripheral Anaerobic Blood Culture - Preliminary No growth in 2 days 02/01/18 08:47 Fluid - Synovial Fluid Gram Stain - Final 02/01/18 08:47 Fluid - Synovial Fluid Body Fluid Culture - Preliminary Staphylococcus species - Procedures s/p Irrigation debridement of abscess to left below-knee amputation with wound VAC application by Dr Tejada 02/01/18 Left BKA Stump aspiration 02/01/18 by IR Assessment and Plan - Assessment and Plan Abscess left BKA. SURGERY: Irrigation debridement of abscess to left below-knee amputation with wound VAC application POD 1 PLAN: Maintain knee immobilizer and wound VAC. Wound VAC is set at 125 mmHg at DPC 3-1 We will plan on washing out the left lower extremity Wednesday or Wednesday with final closure Follow cultures. Cultures pending IV antibiotics per infectious disease
[2018-02-03] MEDS: Senna/Docusate Sodium 8.6/50 MG Tablet PO SCH ×2 (10:01→22:53)
[2018-02-03] MEDS: ALPRAZolam 0.5 MG Tablet PO SCH ×2 (10:02→22:53)
[2018-02-03] MEDS: Sodium Chloride 0.9% 2 ML Flush BID IV.FLUSH SCH ×2 (10:03→22:53)
--- NOTE | 2018-02-03 10:12 | P.PN ---
Subjective Interval history: The patient is in bed, he had surgical debridement by podiatry in the morning. Patient says he has pain mainly at the surgical site worse on the left at the stump. No fever or chills. No nausea or vomiting he is able to eat. Physical Exam Vital signs: Vital Signs 02/02/18 10:15 02/02/18 10:21 02/02/18 12:00 Temperature 97.8 F Pulse Rate 95 H 92 H Respiratory Rate 15 14 18 Blood Pressure 130/63 108/59 L Pulse Oximetry 94 L 99 02/02/18 16:00 02/02/18 20:00 02/03/18 00:00 Temperature 99.3 F 97.6 F 98.3 F Pulse Rate 90 82 84 Respiratory Rate 18 14 16 Blood Pressure 128/63 113/58 L 104/53 L Pulse Oximetry 93 L 96 96 02/03/18 06:31 02/03/18 08:00 Temperature 98.2 F Pulse Rate 82 Respiratory Rate 18 17 Blood Pressure 103/58 L Pulse Oximetry 96 Intake & Output 02/02/18 02/03/18 02/03/18 18:59 06:59 18:59 Intake Total 2967 / 2967 748 / 748 Output Total 50 / 50 700 / 700 Balance 2917 / 2917 48 / 48 Weight 125.6 kg Intake: IV 2067 / 2067 748 / 748 NS Inj 1,000 ML @ 100 mls/hr IV 1452 / 1452 548 / 548 .CONT .Q10H [facility] Rx#:[id number] Zosyn 4.5 GM Premix 4.5 gm In 100 / 100 200 / 200 100 ml @ 200 mls/hr IV.SIG Q6H [facility] Rx#:[id number] Vancomycin Inj 1,500 MG In NS 515 / 515 Inj 500 ML @ 250 mls/hr IV.SIG Q18H [facility] Rx#:[id number] Anesthesia Amount 900 / 900 Output: Urine 700 / 700 Estimated Blood Loss 50 / 50 Other: Mode Setting Left Leg Intermittent Intermittent Date of Last Bowel Movement 02/01/18 Narrative: GENERAL: No acute distress. moderately disheveled. SKIN: Warm and dry. Seborrheic dermatitis over the face. HEENT: AT/NC. PERRLA. EOMI. No scleral icterus or conjunctival injection. MMM. NECK: Supple no tender LAD or JVD. CARDIOVASCULAR: RRR no m/r/g. RESPIRATORY: CTAB without wheezes or crackles. ABDOMEN: +BS, soft, NT, ND. EXTREMITIES: Left BKA. Wound vac in place. Knee immobilizer in place. Right foot wrapped c/d/i. NEURO: Awake and alert. Nonfocal. Speech fluent. Results - Labs CBC & Chem 7: 02/03/18 03:42 02/03/18 03:42 Laboratory Results - last 24 hr 02/01/18 02/02/18 02/02/18 17:10 11:15 17:21 WBC RBC Hgb Hct MCV MCH MCHC RDW Plt Count MPV Neut % (Auto) Lymph % (Auto) [place] % (Auto) Eos % (Auto) Baso % (Auto) Neut # (Auto) Lymph # (Auto) [place] # (Auto) Eos # (Auto) Baso # (Auto) WBC Differential Differential Comment Sodium Potassium Chloride Carbon Dioxide Anion Gap BUN Creatinine Estimated GFR POC Glucose 232 H 161 H 165 H Random Glucose Calcium Vancomycin Trough 02/02/18 02/03/18 02/03/18 19:52 03:22 03:42 WBC RBC Hgb Hct MCV MCH MCHC RDW Plt Count MPV Neut % (Auto) Lymph % (Auto) [place] % (Auto) Eos % (Auto) Baso % (Auto) Neut # (Auto) Lymph # (Auto) [place] # (Auto) Eos # (Auto) Baso # (Auto) WBC Differential Differential Comment Sodium 139 Potassium 3.8 Chloride 103 Carbon Dioxide 30.1 Anion Gap 6 BUN 14 Creatinine 1.51 H Estimated GFR 48 L POC Glucose 238 H 149 H Random Glucose 156 H Calcium 8.0 L Vancomycin Trough 20.3 H 02/03/18 02/03/18 03:42 07:49 WBC 6.8 RBC 3.80 L Hgb 12.0 L Hct 35.5 L MCV 93.2 MCH 31.6 MCHC 33.9 RDW 13.0 Plt Count 185 MPV 9.4 Neut % (Auto) 75.2 H Lymph % (Auto) 13.8 [place]ell % (Auto) 8.2 H Eos % (Auto) 2.3 Baso % (Auto) 0.5 Neut # (Auto) 5.1 Lymph # (Auto) 0.9 L [place]ell # (Auto) 0.6 Eos # (Auto) 0.2 Baso # (Auto) 0.0 WBC Differential . Differential Comment Auto diff final Sodium Potassium Chloride Carbon Dioxide Anion Gap BUN Creatinine Estimated GFR POC Glucose 132 H Random Glucose Calcium Vancomycin Trough Microbiology 02/01/18 08:47 Fluid - Synovial Fluid Gram Stain - Final 02/01/18 08:47 Fluid - Synovial Fluid Body Fluid Culture - Preliminary Staphylococcus species 01/31/18 20:40 Wound - Foot Gram Stain - Final 01/31/18 20:40 Wound - Foot Wound Culture - Final Staphylococcus aureus 02/02/18 08:42 Wound - Other Fungal Smear - Final No fungal elements seen 02/02/18 08:42 Wound - Other Fungal Smear - Final No fungal elements seen 02/02/18 08:42 Wound - Other Gram Stain - Final 02/02/18 08:42 Wound - Other Gram Stain - Final 01/31/18 17:35 Blood - Peripheral Aerobic Blood Culture - Preliminary No growth in 2 days 01/31/18 17:35 Blood - Peripheral Anaerobic Blood Culture - Preliminary No growth in 2 days 01/31/18 17:35 Blood - Peripheral Aerobic Blood Culture - Preliminary Staphylococcus coag negative 01/31/18 17:35 Blood - Peripheral Anaerobic Blood Culture - Preliminary No growth in 2 days - Procedures s/p Irrigation debridement of abscess to left below-knee amputation with wound VAC application by Dr Tejada 02/01/18 Left BKA Stump aspiration 02/01/18 by IR Assessment and Plan - Assessment (1) SENG (acute kidney injury) Code(s): N17.9 - Acute kidney failure, unspecified Status: Acute (2) Cellulitis Code(s): L03.90 - Cellulitis, unspecified Status: Acute (3) Diabetic foot ulcer Code(s): E11.621 - Type 2 diabetes mellitus with foot ulcer; L97.509 - Non- pressure chronic ulcer of other part of unspecified foot with unspecified severity Status: Acute - Plan 58 YOWM with IDDM, HLD, depression, anxiety, and history of L BKA admitted for BKA stump cellulitis with possible abscess as well as right diabetic foot ulcer. 1. Cellulitis and possible abscess of L BKA stump - 02/01: Seen by Orthopedic packaging specialist saw fluid collection along the distal BKA stump, could be infection versus inflamed bursa, asked for Interventional Radiology for aspiration and sent fluid for cell count, cultures and gram stain, left NPO for probable surgery for tomorrow. - s/p Irrigation debridement of abscess to left below-knee amputation with wound VAC application by Dr Tejada 02/01/18 Left BKA Stump aspiration 02/01/18 by IR Maintain knee immobilizer and wound VAC. Wound VAC in place. Plan on washing out the left lower extremity Wednesday or Wednesday with final closure Follow cultures IV antibiotics per infectious disease 2. R diabetic foot ulcer with signs of infection - Right plantar wound at the ball of the foot that has essentially not been treated or had wound care - Obtain culture and Gram stain - IV antibiotics as above - XR with no signs of osteo - Consult podiatry and wound care nurse.' s/p surgery 02/03/18 3. Diabetes mellitus with hyperglycemia - uncontrolled, follow hemoglobin A1C, pre meal 5 units of Regular Insulin, increase Detemir to 25 units daily and Medium sliding scale. 4. Acute kidney injury - Pt denies any history of CKD though likely has underlying renal insufficiency - Last creatinine on file 2015 was 1.48 - Creatinine 1.72 on admission - Hold home LALO inhibitor and metformin - Watch creatinine carefully while on vancomycin and Zosyn, if worsens may have to change abx - IV fluids - Monitor renal function 5. Hyperlipidemia - Continue home statin 6. Anxiety - Continue home Xanax 7. Diabetic neuropathy - Continue home Cymbalta FEN: - Fluids: NS at 100 ml/hr - Electrolytes: mild hyponatremia, providing fluids; borderline elevated potassium, holding home LALO-I in light of SENG, continue to monitor - Nutrition: NPO after midnight DVT prophylaxis: SCDs, hold chemical anticoagulation should patient go to OR for I&D Code Status: Full code. Discussed Condition With: Patient, nurse, family Discharge Planning: Pending improvement and clearance by Specialists. s/p surgery 02/03/18 by podiatry (2) Cellulitis Qualifiers: Site of cellulitis: extremity Site of cellulitis of extremity: lower extremity Laterality: left Qualified Code(s): L03.116 - Cellulitis of left lower limb (3) Diabetic foot ulcer Qualifiers: Diabetic foot ulcer location: midfoot Diabetes mellitus type: type 2 Laterality: right
--- NOTE | 2018-02-03 11:26 | P.PNVS ---
Subjective Subjective/Hospital Course: No acute issues Objective Vital Signs / I&O: Vital Signs 02/02/18 12:00 02/02/18 16:00 02/02/18 20:00 Temperature 97.8 F 99.3 F 97.6 F Pulse Rate 92 H 90 82 Respiratory Rate 18 18 14 Blood Pressure 108/59 L 128/63 113/58 L Pulse Oximetry 99 93 L 96 02/03/18 00:00 02/03/18 06:31 02/03/18 08:00 Temperature 98.3 F 98.2 F Pulse Rate 84 82 Respiratory Rate 16 18 17 Blood Pressure 104/53 L 103/58 L Pulse Oximetry 96 96 Intake & Output 02/02/18 02/03/18 02/03/18 18:59 06:59 18:59 Intake Total 2967 / 2967 748 / 748 Output Total 50 / 50 700 / 700 Balance 2917 / 2917 48 / 48 Weight 125.6 kg Intake: IV 2067 / 2067 748 / 748 NS Inj 1,000 ML @ 100 mls/hr IV 1452 / 1452 548 / 548 .CONT .Q10H [facility] Rx#:[id number] Zosyn 4.5 GM Premix 4.5 gm In 100 / 100 200 / 200 100 ml @ 200 mls/hr IV.SIG Q6H [facility] Rx#:[id number] Vancomycin Inj 1,500 MG In NS 515 / 515 Inj 500 ML @ 250 mls/hr IV.SIG Q18H [facility] Rx#:[id number] Anesthesia Amount 900 / 900 Output: Urine 700 / 700 Estimated Blood Loss 50 / 50 Other: Mode Setting Left Leg Intermittent Intermittent Date of Last Bowel Movement 02/01/18 Physical Exam: +1 palpable right PT pulse Laboratory Results - last 24 hr 02/01/18 02/02/18 02/02/18 17:10 17:21 19:52 WBC RBC Hgb Hct MCV MCH MCHC RDW Plt Count MPV Neut % (Auto) Lymph % (Auto) [place] % (Auto) Eos % (Auto) Baso % (Auto) Neut # (Auto) Lymph # (Auto) [place] # (Auto) Eos # (Auto) Baso # (Auto) WBC Differential Differential Comment Sodium Potassium Chloride Carbon Dioxide Anion Gap BUN Creatinine Estimated GFR POC Glucose 232 H 165 H 238 H Random Glucose Calcium Vancomycin Trough 02/03/18 02/03/18 02/03/18 03:22 03:42 03:42 WBC 6.8 RBC 3.80 L Hgb 12.0 L Hct 35.5 L MCV 93.2 MCH 31.6 MCHC 33.9 RDW 13.0 Plt Count 185 MPV 9.4 Neut % (Auto) 75.2 H Lymph % (Auto) 13.8 [place] % (Auto) 8.2 H Eos % (Auto) 2.3 Baso % (Auto) 0.5 Neut # (Auto) 5.1 Lymph # (Auto) 0.9 L [place] # (Auto) 0.6 Eos # (Auto) 0.2 Baso # (Auto) 0.0 WBC Differential . Differential Comment Auto diff final Sodium 139 Potassium 3.8 Chloride 103 Carbon Dioxide 30.1 Anion Gap 6 BUN 14 Creatinine 1.51 H Estimated GFR 48 L POC Glucose 149 H Random Glucose 156 H Calcium 8.0 L Vancomycin Trough 20.3 H 02/03/18 07:49 WBC RBC Hgb Hct MCV MCH MCHC RDW Plt Count MPV Neut % (Auto) Lymph % (Auto) [place] % (Auto) Eos % (Auto) Baso % (Auto) Neut # (Auto) Lymph # (Auto) [place] # (Auto) Eos # (Auto) Baso # (Auto) WBC Differential Differential Comment Sodium Potassium Chloride Carbon Dioxide Anion Gap BUN Creatinine Estimated GFR POC Glucose 132 H Random Glucose Calcium Vancomycin Trough Microbiology 01/31/18 17:35 Aerobic Blood Culture - Preliminary Blood - Peripheral No growth in 3 days Anaerobic Blood Culture - Preliminary No growth in 3 days 01/31/18 17:35 Aerobic Blood Culture - Preliminary Blood - Peripheral Staphylococcus coag negative Anaerobic Blood Culture - Preliminary No growth in 3 days 02/01/18 08:47 Gram Stain - Final Fluid - Synovial Fluid Body Fluid Culture - Preliminary Staphylococcus species 01/31/18 20:40 Gram Stain - Final Wound - Foot Wound Culture - Final Staphylococcus aureus 02/02/18 08:42 Fungal Smear - Final Wound - Other No fungal elements seen 02/02/18 08:42 Fungal Smear - Final Wound - Other No fungal elements seen 02/02/18 08:42 Gram Stain - Final Wound - Other 02/02/18 08:42 Gram Stain - Final Wound - Other Impressions Foot MRI 02/01/18 00:00 CONCLUSION: 1. Wound along the plantar surface of the forefoot appears fairly superficial without evidence of deep involvement or underlying abscess. 2. No evidence of osteomyelitis. Assessment and Plan - Plan Right diabetic foot ulcer Rule out peripheral vascular occlusive disease Awaiting ROBERTA, toe pressure [facility]egino [facility]illan [facility] [phone]
--- NOTE | 2018-02-03 12:04 | ECHRPT ---
EXAM DATE: 02/03/2018 12:00 PM EST AGE/SEX: 58 years / Male INDICATIONS: right foot diabetic ulcer CLINICAL DATA: This is the patient's initial encounter. Patient reports that signs and symptoms have been present for 1 week and indicates a pain score of 3/10. MEDICAL/SURGICAL HISTORY: . Anxiety, depression, diabetes, hypertension, hyperlipidemia . Left BKA COMPARISON: No prior exams available for comparison. TECHNIQUE: Four-cuff ankle and brachial pressures were obtained. Pulse cuff waveform tracings of the ankles were recorded, and ankle-brachial indices were calculated. PRESSURES (mmHg): Brachial (arm) : RIGHT: 86, LEFT: IV SITE Ankle : RIGHT: 87, LEFT: BKA ROBERTA : RIGHT: 1.01, LEFT: Not applicable TBI : RIGHT: 0.91, LEFT: Not applicable FINDINGS: Pulsed-Cuff Waveform: There are good upstroke and a dicrotic downstroke of the tracings. Other: The patient is status post left [id number] amputation. CONCLUSION: Normal ankle-brachial index at the right lower extremity. The ankle brachial index can be compromised by heavily calcified vessels in diabetics. Electronically signed by: Steve Westbrook MD 02/03/2018 12:03 PM EST
--- NOTE | 2018-02-03 14:45 | P.PNPOD ---
Subjective Interval history: RLE LE ulcer Patient seen at bedside this am in NAD Physical Exam Vital signs: Vital Signs 02/02/18 16:00 02/02/18 20:00 02/03/18 00:00 Temperature 99.3 F 97.6 F 98.3 F Pulse Rate 90 82 84 Respiratory Rate 18 14 16 Blood Pressure 128/63 113/58 L 104/53 L Pulse Oximetry 93 L 96 96 02/03/18 06:31 02/03/18 08:00 02/03/18 12:00 Temperature 98.2 F 97.4 F L Pulse Rate 82 81 Respiratory Rate 18 17 17 Blood Pressure 103/58 L 104/55 L Pulse Oximetry 96 97 Intake & Output 02/02/18 02/03/18 02/03/18 18:59 06:59 18:59 Intake Total 2967 / 2967 748 / 748 100 / 100 Output Total 50 / 50 700 / 700 Balance 2917 / 2917 48 / 48 100 / 100 Weight 125.6 kg Intake: IV 2067 / 2067 748 / 748 100 / 100 NS Inj 1,000 ML @ 100 mls/hr IV 1452 / 1452 548 / 548 .CONT .Q10H [facility] Rx#:[id number] Zosyn 4.5 GM Premix 4.5 gm In 100 / 100 200 / 200 100 / 100 100 ml @ 200 mls/hr IV.SIG Q6H [facility] Rx#:[id number] Vancomycin Inj 1,500 MG In NS 515 / 515 Inj 500 ML @ 250 mls/hr IV.SIG Q18H [facility] Rx#:[id number] Anesthesia Amount 900 / 900 Output: Urine 700 / 700 Estimated Blood Loss 50 / 50 Other: Mode Setting Left Leg Intermittent Intermittent Date of Last Bowel Movement 02/01/18 Narrative: RLE Sub 1st met with ulcer, no exposed bone or tendon. + Serous drainage, no erythema. + perowiund thick keratotic tissue. Fibrotic wound base. DP and PT intcat Medications and Allergies Active Medications: Active Medications Acetaminophen (Tylenol) 650 mg PO Q4H PRN PRN Reason: Temp > 100.4 Hydrocodone Bitart/Acetaminophen (Niotaze 5/325) 1 tab PO Q4H PRN PRN Reason: PAIN SCALE 1 TO 5 Last Admin: 02/03/18 10:01 Dose: 1 tab Hydrocodone Bitart/Acetaminophen (Niotaze 5/325) 2 tab PO Q4H PRN PRN Reason: PAIN SCALE 6 TO 10 Last Admin: 02/03/18 04:28 Dose: 2 tab Al Hydroxide/Mg Hydroxide (Milk Of Magnesia Liq) 30 ml PO Q12H PRN PRN Reason: Mild Constipation Alprazolam (Xanax) 0.5 mg PO BID [facility] Last Admin: 02/03/18 10:02 Dose: 0.5 mg Aspirin (Ecotrin) 81 mg PO Q12H [facility] Last Admin: 02/03/18 10:02 Dose: 81 mg Bisacodyl (Dulcolax Supp) 10 mg RECTAL DAILY PRN PRN Reason: SEVERE CONSITIPATION Clonidine HCl (Catapres) 0.1 mg PO Q6H PRN PRN Reason: SBP>160, DBP>90 Dextrose (D50w Vial) 50 ml IV.PUSH UNSCH PRN PRN Reason: PER HYPOGLYCEMIA PROTOCOL Duloxetine HCl (Cymbalta) 30 mg PO DAILY [facility] Last Admin: 02/03/18 10:01 Dose: 30 mg Glucagon (Glucagon Inj) 1 mg OTHER PRN PRN PRN Reason: for Hypoglycemia Protocol Sodium Chloride (Ns Inj) 1,000 mls @ 100 mls/hr IV.CONT .Q10H [facility] Last Admin: 02/03/18 00:40 Dose: Not Given Piperacillin/Tazobactam/Dextrose (Zosyn 4.5 Gm Premix) 4.5 gm in 100 mls @ 200 mls/hr IV.SIG Q6H [facility] Last Infusion: 02/03/18 12:32 Dose: Infused Vancomycin HCl 1,500 mg/ (Sodium Chloride) 515 mls @ 250 mls/hr IV.SIG Q24H [facility] Last Admin: 02/03/18 12:50 Dose: 150 mls/hr Insulin Aspart (Novolog Insulin Correctional Sugar Inj) 0 unit SQ 08,12,17,21, 03 [facility]; Protocol Last Admin: 02/03/18 12:50 Dose: 2 unit Insulin Aspart (Novolog Insulin Correctional Sugar Inj) 5 unit SQ TIDAC [facility]; Protocol Last Admin: 02/03/18 12:50 Dose: 5 unit Insulin Detemir (Levemir Inj) 25 unit SQ HS [facility] Last Admin: 02/02/18 21:43 Dose: 25 unit Lactulose (Lactulose Liq) 30 ml PO DAILY PRN PRN Reason: SEVERE CONSITIPATION Miscellaneous Information ([facility] Ordered Lab Info) 0 each OTHER ONCE ONE Stop: 02/04/18 11:46 Morphine Sulfate (Morphine Inj) 4 mg IV.PUSH Q4H PRN PRN Reason: BREAKTHROUGH PAIN Ondansetron HCl (Zofran Inj) 4 mg IV.PUSH Q6H PRN PRN Reason: NAUSEA OR VOMITING Ondansetron HCl (Zofran Odt) 4 mg PO Q6H PRN PRN Reason: NAUSEA OR VOMITING Pharmacy Profile Note (Vancomycin Consult Pharmacy) 1 each OTHER UNSCH PRN PRN Reason: Pharmacy to dose Senna/Docusate Sodium (Abla-Colace) 1 tab PO BID [facility] Last Admin: 02/03/18 10:01 Dose: 1 tab Sennosides (Senokot) 17.2 mg PO Q12H PRN PRN Reason: Moderate Constipation Sodium Chloride (Ns Flush) 2 ml IV.FLUSH BID [facility] Last Admin: 02/03/18 10:03 Dose: Not Given Sodium Chloride (Ns Flush) 2 ml IV.FLUSH PRN PRN PRN Reason: FLUSH AFTER USING IV ACCESS Temazepam (Restoril) 15 mg PO HS PRN PRN Reason: INSOMNIA Allergies Allergy/AdvReac Type Severity Reaction Status Date / Time No Known Allergies Allergy Verified 01/31/18 15:24 Home Medications Medication Instructions Recorded Confirmed Type alprazolam [Xanax] 0.5 mg PO BID 01/31/18 01/31/18 History duloxetine [Cymbalta] 30 mg PO DAILY 01/31/18 01/31/18 History enalapril maleate 10 mg PO DAILY 01/31/18 01/31/18 History insulin regular human 11 units SUBCUT TID 01/31/18 01/31/18 History metformin 1,000 mg PO BID 01/31/18 01/31/18 History methotrexate sodium 15 mg PO DAILY 01/31/18 01/31/18 History Results - Labs CBC & Chem 7: 02/03/18 03:42 02/03/18 03:42 Laboratory Results - last 24 hr 02/01/18 02/02/18 02/02/18 17:10 17:21 19:52 WBC RBC Hgb Hct MCV MCH MCHC RDW Plt Count MPV Neut % (Auto) Lymph % (Auto) [place] % (Auto) Eos % (Auto) Baso % (Auto) Neut # (Auto) Lymph # (Auto) [place] # (Auto) Eos # (Auto) Baso # (Auto) WBC Differential Differential Comment Sodium Potassium Chloride Carbon Dioxide Anion Gap BUN Creatinine Estimated GFR POC Glucose 232 H 165 H 238 H Random Glucose Calcium Vancomycin Trough 02/03/18 02/03/18 02/03/18 03:22 03:42 03:42 WBC 6.8 RBC 3.80 L Hgb 12.0 L Hct 35.5 L MCV 93.2 MCH 31.6 MCHC 33.9 RDW 13.0 Plt Count 185 MPV 9.4 Neut % (Auto) 75.2 H Lymph % (Auto) 13.8 [place] % (Auto) 8.2 H Eos % (Auto) 2.3 Baso % (Auto) 0.5 Neut # (Auto) 5.1 Lymph # (Auto) 0.9 L [place] # (Auto) 0.6 Eos # (Auto) 0.2 Baso # (Auto) 0.0 WBC Differential . Differential Comment Auto diff final Sodium 139 Potassium 3.8 Chloride 103 Carbon Dioxide 30.1 Anion Gap 6 BUN 14 Creatinine 1.51 H Estimated GFR 48 L POC Glucose 149 H Random Glucose 156 H Calcium 8.0 L Vancomycin Trough 20.3 H 02/03/18 02/03/18 07:49 11:24 WBC RBC Hgb Hct MCV MCH MCHC RDW Plt Count MPV Neut % (Auto) Lymph % (Auto) [place] % (Auto) Eos % (Auto) Baso % (Auto) Neut # (Auto) Lymph # (Auto) [place] # (Auto) Eos # (Auto) Baso # (Auto) WBC Differential Differential Comment Sodium Potassium Chloride Carbon Dioxide Anion Gap BUN Creatinine Estimated GFR POC Glucose 132 H 195 H Random Glucose Calcium Vancomycin Trough Microbiology 01/31/18 17:35 Blood - Peripheral Aerobic Blood Culture - Final Staphylococcus hominis-hominis 01/31/18 17:35 Blood - Peripheral Anaerobic Blood Culture - Preliminary No growth in 3 days 02/02/18 08:42 Wound - Other Gram Stain - Final 02/02/18 08:42 Wound - Other Wound Culture - Preliminary Staphylococcus species 02/02/18 08:42 Wound - Other Gram Stain - Final 02/02/18 08:42 Wound - Other Wound Culture - Preliminary Staphylococcus species 02/02/18 08:42 Wound - Other Fungal Smear - Final No fungal elements seen 02/02/18 08:42 Wound - Other Acid Fast Bacilli Smear - Final No acid fast bacilli seen 02/02/18 08:42 Wound - Other Acid Fast Bacilli Smear - Final No acid fast bacilli seen 01/31/18 17:35 Blood - Peripheral Aerobic Blood Culture - Preliminary No growth in 3 days 01/31/18 17:35 Blood - Peripheral Anaerobic Blood Culture - Preliminary No growth in 3 days 02/01/18 08:47 Fluid - Synovial Fluid Gram Stain - Final 02/01/18 08:47 Fluid - Synovial Fluid Body Fluid Culture - Preliminary Staphylococcus species 01/31/18 20:40 Wound - Foot Gram Stain - Final 01/31/18 20:40 Wound - Foot Wound Culture - Final Staphylococcus aureus 02/02/18 08:42 Wound - Other Fungal Smear - Final No fungal elements seen - Imaging Impressions Extremity Arterial Study 02/02/18 00:00 CONCLUSION: Normal ankle-brachial index at the right lower extremity. The ankle brachial index can be compromised by heavily calcified vessels in diabetics. - Procedures s/p Irrigation debridement of abscess to left below-knee amputation with wound VAC application by Dr Tejada 02/01/18 Left BKA Stump aspiration 02/01/18 by IR Assessment and Plan - Assessment (1) Osteomyelitis of right foot Code(s): M86.9 - Osteomyelitis, unspecified Status: Acute - Plan RLE Bedside debridement 02/03/18. Plan for daily dressing changes with Santyl and DSD. No further intervention per Podiatry OK to d/c per Podiatry and f/u with 1 week of d/c Procedures: RLE Prep and with #15 blade sharp excisional debridement of necrotic and non viable tissue. DSD applied.
[2018-02-03] MEDS: Insulin Detemir Inj 1,000 UNIT/10 ML Vial SQ SCH (23:06)
[2018-02-04] MEDS: Piperacil/Tazo 4.5 GM Premix 4.5 GM/100 ML BAG IV.SIG SCH ×4 (04:08→22:16)
[2018-02-04] MEDS: Sod Chloride 0.9% Inj 1,000 ML IV.CONT SCH ×3 (04:09→22:20)
[2018-02-04] MEDS: Insulin NovoLOG Aspart Correctional Sugar Inj SQ SCH ×8 (04:19→22:19)
[2018-02-04 05:50] LABS: Baso % (Auto) 0.8 % (0.0-2.0); Eos # (Auto) 0.2 th/mm3 (0.0-0.4); Eos % (Auto) 3.4 % (0.0-4.0); Hematocrit 35.3 % (39.0-51.0); Hemoglobin 11.9 gm/dL (13.0-17.0); Lymph # (Auto) 0.9 th/mm3 (1.0-4.8); Lymph % (Auto) 16.1 % (9.0-44.0); Mean Corpuscular HGB Conc 33.8 % (32.0-36.0); Mean Corpuscular Hemoglobin 31.2 pg (27.0-34.0); Mean Corpuscular Volume 92.3 fL (80.0-100.0); Mean Platelet Volume 9.2 fL (7.0-11.0); Mono # (Auto) 0.5 th/mm3 (0.0-0.9); Mono % (Auto) 8.6 % (0.0-8.0); Neut # (Auto) 3.9 th/mm3 (1.8-7.7); Neut % (Auto) 71.1 % (16.0-70.0); Platelet Count 198 th/mm3 (150-450); Red Blood Count 3.83 mil/mm3 (4.50-5.90); Red Cell Distribution Width 13.1 % (11.6-17.2); White Blood Count 5.5 th/mm3 (4.0-11.0)
[2018-02-04 06:21] LABS: Calcium 8.4 mg/dL (8.5-10.1); Carbon Dioxide 29.5 meq/L (21.0-32.0); Potassium 4.8 meq/L (3.5-5.1)
--- NOTE | 2018-02-04 07:44 | P.PNOP ---
Subjective Interval history: No complaints. Wound VAC in place. Comfortable Physical Exam Vital signs: Vital Signs 02/03/18 08:00 02/03/18 12:00 02/03/18 16:00 Temperature 98.2 F 97.4 F L 97.3 F L Pulse Rate 82 81 76 Respiratory Rate 17 17 17 Blood Pressure 103/58 L 104/55 L 116/57 L Pulse Oximetry 96 97 97 02/03/18 20:00 02/04/18 00:00 Temperature 97.4 F L 98.2 F Pulse Rate 83 78 Respiratory Rate 18 18 Blood Pressure 139/66 116/60 Pulse Oximetry 97 97 Intake & Output 02/03/18 02/04/18 02/04/18 18:59 06:59 18:59 Intake Total 2155 / 2155 1200.0 / 1200.0 Output Total 650 / 650 400 / 400 Balance 1505 / 1505 800.0 / 800.0 Weight 128.6 kg Intake: IV 715 / 715 1200.0 / 1200.0 NS Inj 1,000 ML @ 100 mls/hr IV 0 / 0 1000.0 / 1000.0 .CONT .Q10H [facility] Rx#:[id number] Zosyn 4.5 GM Premix 4.5 gm In 200 / 200 200 / 200 100 ml @ 200 mls/hr IV.SIG Q6H [facility] Rx#:[id number] Vancomycin Inj 1,500 MG In NS 515 / 515 Inj 500 ML @ 250 mls/hr IV.SIG Q24H [facility] Rx#:[id number] Oral 1440 / 1440 Output: Urine 650 / 650 400 / 400 Other: Mode Setting Left Leg Intermittent Intermittent Date of Last Bowel Movement 02/01/18 02/01/18 Narrative: Wound VAC in place. No significant drainage. Results - Labs CBC & Chem 7: 02/04/18 04:13 02/04/18 04:13 Laboratory Results - last 24 hr 02/03/18 02/03/18 02/03/18 07:49 11:24 16:30 WBC RBC Hgb Hct MCV MCH MCHC RDW Plt Count MPV Neut % (Auto) Lymph % (Auto) [place] % (Auto) Eos % (Auto) Baso % (Auto) Neut # (Auto) Lymph # (Auto) [place] # (Auto) Eos # (Auto) Baso # (Auto) WBC Differential Differential Comment Sodium Potassium Chloride Carbon Dioxide Anion Gap BUN Creatinine Estimated GFR POC Glucose 132 H 195 H 162 H Random Glucose Calcium 02/03/18 02/04/18 02/04/18 22:55 04:09 04:13 WBC 5.5 RBC 3.83 L Hgb 11.9 L Hct 35.3 L MCV 92.3 MCH 31.2 MCHC 33.8 RDW 13.1 Plt Count 198 MPV 9.2 Neut % (Auto) 71.1 H Lymph % (Auto) 16.1 [place] % (Auto) 8.6 H Eos % (Auto) 3.4 Baso % (Auto) 0.8 Neut # (Auto) 3.9 Lymph # (Auto) 0.9 L [place] # (Auto) 0.5 Eos # (Auto) 0.2 Baso # (Auto) 0.0 WBC Differential . Differential Comment Auto diff final Sodium Potassium Chloride Carbon Dioxide Anion Gap BUN Creatinine Estimated GFR POC Glucose 201 H 178 H Random Glucose Calcium 02/04/18 04:13 WBC RBC Hgb Hct MCV MCH MCHC RDW Plt Count MPV Neut % (Auto) Lymph % (Auto) [place] % (Auto) Eos % (Auto) Baso % (Auto) Neut # (Auto) Lymph # (Auto) [place] # (Auto) Eos # (Auto) Baso # (Auto) WBC Differential Differential Comment Sodium 141 Potassium 4.8 D Chloride 106 Carbon Dioxide 29.5 Anion Gap 6 BUN 14 Creatinine 1.51 H Estimated GFR 48 L POC Glucose Random Glucose 196 H Calcium 8.4 L Microbiology 01/31/18 17:35 Blood - Peripheral Aerobic Blood Culture - Final Staphylococcus hominis-hominis 01/31/18 17:35 Blood - Peripheral Anaerobic Blood Culture - Preliminary No growth in 3 days 02/02/18 08:42 Wound - Other Gram Stain - Final 02/02/18 08:42 Wound - Other Wound Culture - Preliminary Staphylococcus species 02/02/18 08:42 Wound - Other Gram Stain - Final 02/02/18 08:42 Wound - Other Wound Culture - Preliminary Staphylococcus species 02/02/18 08:42 Wound - Other Fungal Smear - Final No fungal elements seen 02/02/18 08:42 Wound - Other Acid Fast Bacilli Smear - Final No acid fast bacilli seen 02/02/18 08:42 Wound - Other Acid Fast Bacilli Smear - Final No acid fast bacilli seen 01/31/18 17:35 Blood - Peripheral Aerobic Blood Culture - Preliminary No growth in 3 days 01/31/18 17:35 Blood - Peripheral Anaerobic Blood Culture - Preliminary No growth in 3 days 02/01/18 08:47 Fluid - Synovial Fluid Gram Stain - Final 02/01/18 08:47 Fluid - Synovial Fluid Body Fluid Culture - Preliminary Staphylococcus species 01/31/18 20:40 Wound - Foot Gram Stain - Final 01/31/18 20:40 Wound - Foot Wound Culture - Final Staphylococcus aureus - Imaging Impressions Extremity Arterial Study 02/02/18 00:00 CONCLUSION: Normal ankle-brachial index at the right lower extremity. The ankle brachial index can be compromised by heavily calcified vessels in diabetics. - Procedures s/p Irrigation debridement of abscess to left below-knee amputation with wound VAC application by Dr Tejada 02/01/18 Left BKA Stump aspiration 02/01/18 by IR Assessment and Plan - Assessment and Plan Abscess left BKA. SURGERY: Irrigation debridement of abscess to left below-knee amputation with wound VAC application POD 2 PLAN: Maintain knee immobilizer and wound VAC. Wound VAC is set at 125 mmHg at DPC 3-1 We will plan on washing out the left lower extremity Wednesday or Wednesday with final closure Follow cultures. Cultures growing staph species, SUNITHA to follow IV antibiotics per infectious disease
--- NOTE | 2018-02-04 10:01 | P.PNVS ---
Subjective Subjective/Hospital Course: No acute issues Objective Vital Signs / I&O: Vital Signs 02/03/18 12:00 02/03/18 16:00 02/03/18 20:00 Temperature 97.4 F L 97.3 F L 97.4 F L Pulse Rate 81 76 83 Respiratory Rate 17 17 18 Blood Pressure 104/55 L 116/57 L 139/66 Pulse Oximetry 97 97 97 02/04/18 00:00 02/04/18 08:00 Temperature 98.2 F 97.6 F Pulse Rate 78 82 Respiratory Rate 18 18 Blood Pressure 116/60 128/60 Pulse Oximetry 97 98 Intake & Output 02/03/18 02/04/18 02/04/18 18:59 06:59 18:59 Intake Total 2155 / 2155 1200.0 / 1200.0 Output Total 650 / 650 400 / 400 Balance 1505 / 1505 800.0 / 800.0 Weight 128.6 kg Intake: IV 715 / 715 1200.0 / 1200.0 NS Inj 1,000 ML @ 100 mls/hr IV 0 / 0 1000.0 / 1000.0 .CONT .Q10H [facility] Rx#:[id number] Zosyn 4.5 GM Premix 4.5 gm In 200 / 200 200 / 200 100 ml @ 200 mls/hr IV.SIG Q6H [facility] Rx#:[id number] Vancomycin Inj 1,500 MG In NS 515 / 515 Inj 500 ML @ 250 mls/hr IV.SIG Q24H [facility] Rx#:[id number] Oral 1440 / 1440 Output: Urine 650 / 650 400 / 400 Other: Mode Setting Left Leg Intermittent Intermittent Date of Last Bowel Movement 02/01/18 02/01/18 Physical Exam: Palpable R pt pulse Laboratory Results - last 24 hr 02/03/18 02/03/18 02/03/18 11:24 16:30 22:55 WBC RBC Hgb Hct MCV MCH MCHC RDW Plt Count MPV Neut % (Auto) Lymph % (Auto) [place] % (Auto) Eos % (Auto) Baso % (Auto) Neut # (Auto) Lymph # (Auto) [place] # (Auto) Eos # (Auto) Baso # (Auto) WBC Differential Differential Comment Sodium Potassium Chloride Carbon Dioxide Anion Gap BUN Creatinine Estimated GFR POC Glucose 195 H 162 H 201 H Random Glucose Calcium 02/04/18 02/04/1818 04:09 04:13 04:13 WBC 5.5 RBC 3.83 L Hgb 11.9 L Hct 35.3 L MCV 92.3 MCH 31.2 MCHC 33.8 RDW 13.1 Plt Count 198 MPV 9.2 Neut % (Auto) 71.1 H Lymph % (Auto) 16.1 [place] % (Auto) 8.6 H Eos % (Auto) 3.4 Baso % (Auto) 0.8 Neut # (Auto) 3.9 Lymph # (Auto) 0.9 L [place] # (Auto) 0.5 Eos # (Auto) 0.2 Baso # (Auto) 0.0 WBC Differential . Differential Comment Auto diff final Sodium 141 Potassium 4.8 D Chloride 106 Carbon Dioxide 29.5 Anion Gap 6 BUN 14 Creatinine 1.51 H Estimated GFR 48 L POC Glucose 178 H Random Glucose 196 H Calcium 8.4 L Microbiology 02/01/18 08:47 Gram Stain - Final Fluid - Synovial Fluid Body Fluid Culture - Final Staphylococcus aureus 02/02/18 08:42 Gram Stain - Final Wound - Other Wound Culture - Preliminary Staphylococcus species 02/02/18 08:42 Gram Stain - Final Wound - Other Wound Culture - Preliminary Staphylococcus species 01/31/18 17:35 Aerobic Blood Culture - Final Blood - Peripheral Staphylococcus hominis-hominis Anaerobic Blood Culture - Preliminary gram positive cocci 02/02/18 08:42 Fungal Smear - Final Wound - Other No fungal elements seen 02/02/18 08:42 Acid Fast Bacilli Smear - Final Wound - Other No acid fast bacilli seen 02/02/18 08:42 Acid Fast Bacilli Smear - Final Wound - Other No acid fast bacilli seen 01/31/18 17:35 Aerobic Blood Culture - Preliminary Blood - Peripheral No growth in 3 days Anaerobic Blood Culture - Preliminary No growth in 3 days 01/31/18 20:40 Gram Stain - Final Wound - Foot Wound Culture - Final Staphylococcus aureus Impressions Extremity Arterial Study 02/02/18 00:00 CONCLUSION: Normal ankle-brachial index at the right lower extremity. The ankle brachial index can be compromised by heavily calcified vessels in diabetics. Assessment and Plan - Plan Right diabetic foot ulcer Rule out peripheral vascular occlusive disease Normal ROBERTA bilaterally Patient with adequate blood flow for wound healing. No vascular intervention needed Vascular surgery will sign off, please call with questions Regino Santillan MD [facility] [phone]
--- NOTE | 2018-02-04 10:06 | P.PNWCN ---
Wound Care Nurse Consult Additional information: Patient not seen for wound to to R plantar foot, Podiatry Doctor Hollis and Doctor Ortez have seen patient. Doctor Hollis wrote orders for wound care. Doctor Ortez has recently seen patient for bedside debridement of wound with wound care recommendations in his note. Please defer to podiatry regarding wound care, dressings, and deterioration of wound. Wound care inpatient is signing off.
[2018-02-04] MEDS: ALPRAZolam 0.5 MG Tablet PO SCH ×2 (10:58→22:13)
[2018-02-04] MEDS: Senna/Docusate Sodium 8.6/50 MG Tablet PO SCH ×2 (10:58→22:13)
[2018-02-04] MEDS: Sodium Chloride 0.9% 2 ML Flush BID IV.FLUSH SCH ×2 (11:04→22:13)
[2018-02-04] MEDS ORDERED: Pharmacy Ordered Lab Info OTHER ONE (11:45)
[2018-02-04] MEDS: Vancomycin Inj 1,500 MG in Sodium Chlor 0.9% Inj 500 ML IV.SIG SCH (14:11)
--- NOTE | 2018-02-04 15:51 | P.PN ---
Subjective Interval history: In bed says he has pain especially at left stump at the surgical site. No fever or chills overnight. Not eating much has decreased appetite. No fever or chills. No nausea or vomiting Physical Exam Vital signs: Vital Signs 02/03/18 16:00 02/03/18 20:00 02/04/18 00:00 Temperature 97.3 F L 97.4 F L 98.2 F Pulse Rate 76 83 78 Respiratory Rate 17 18 18 Blood Pressure 116/57 L 139/66 116/60 Pulse Oximetry 97 97 97 02/04/18 08:00 02/04/18 12:00 Temperature 97.6 F 97.7 F Pulse Rate 82 87 Respiratory Rate 18 18 Blood Pressure 128/60 121/61 Pulse Oximetry 98 97 Intake & Output 02/03/18 02/04/18 02/04/18 18:59 06:59 18:59 Intake Total 2155 / 2155 1200.0 / 1200.0 1100 / 1100 Output Total 650 / 650 400 / 400 Balance 1505 / 1505 800.0 / 800.0 1100 / 1100 Weight 128.6 kg Intake: IV 715 / 715 1200.0 / 1200.0 1100 / 1100 NS Inj 1,000 ML @ 100 mls/hr IV 0 / 0 1000.0 / 1000.0 1000 / 1000 .CONT .Q10H [facility] Rx#:[id number] Zosyn 4.5 GM Premix 4.5 gm In 200 / 200 200 / 200 100 / 100 100 ml @ 200 mls/hr IV.SIG Q6H [facility] Rx#:[id number] Vancomycin Inj 1,500 MG In NS 515 / 515 Inj 500 ML @ 250 mls/hr IV.SIG Q24H [facility] Rx#:[id number] Oral 1440 / 1440 Output: Urine 650 / 650 400 / 400 Other: Mode Setting Left Leg Intermittent Intermittent Intermittent Date of Last Bowel Movement 02/01/18 02/01/18 02/01/18 Narrative: GENERAL: No acute distress. moderately disheveled. SKIN: Warm and dry. Seborrheic dermatitis over the face. HEENT: AT/NC. PERRLA. EOMI. No scleral icterus or conjunctival injection. MMM. NECK: Supple no tender LAD or JVD. CARDIOVASCULAR: RRR no m/r/g. RESPIRATORY: CTAB without wheezes or crackles. ABDOMEN: +BS, soft, NT, ND. EXTREMITIES: Left BKA. Wound vac in place. Knee immobilizer in place. Right foot wrapped c/d/i. NEURO: Awake and alert. Nonfocal. Speech fluent. Results - Labs CBC & Chem 7: 02/04/18 04:13 02/04/18 04:13 Laboratory Results - last 24 hr 02/03/18 02/03/18 02/04/18 16:30 22:55 04:09 WBC RBC Hgb Hct MCV MCH MCHC RDW Plt Count MPV Neut % (Auto) Lymph % (Auto) [place] % (Auto) Eos % (Auto) Baso % (Auto) Neut # (Auto) Lymph # (Auto) [place] # (Auto) Eos # (Auto) Baso # (Auto) WBC Differential Differential Comment Sodium Potassium Chloride Carbon Dioxide Anion Gap BUN Creatinine Estimated GFR POC Glucose 162 H 201 H 178 H Random Glucose Calcium Vancomycin Trough 02/04/18 02/04/18 02/04/18 04:13 04:13 14:15 WBC 5.5 RBC 3.83 L Hgb 11.9 L Hct 35.3 L MCV 92.3 MCH 31.2 MCHC 33.8 RDW 13.1 Plt Count 198 MPV 9.2 Neut % (Auto) 71.1 H Lymph % (Auto) 16.1 [place] % (Auto) 8.6 H Eos % (Auto) 3.4 Baso % (Auto) 0.8 Neut # (Auto) 3.9 Lymph # (Auto) 0.9 L [place] # (Auto) 0.5 Eos # (Auto) 0.2 Baso # (Auto) 0.0 WBC Differential . Differential Comment Auto diff final Sodium 141 Potassium 4.8 D Chloride 106 Carbon Dioxide 29.5 Anion Gap 6 BUN 14 Creatinine 1.51 H Estimated GFR 48 L POC Glucose Random Glucose 196 H Calcium 8.4 L Vancomycin Trough 14.4 H Microbiology 01/31/18 17:35 Blood - Peripheral Aerobic Blood Culture - Preliminary No growth in 4 days 01/31/18 17:35 Blood - Peripheral Anaerobic Blood Culture - Preliminary No growth in 4 days 02/02/18 08:42 Wound - Other Gram Stain - Final 02/02/18 08:42 Wound - Other Wound Culture - Final Staphylococcus aureus 02/02/18 08:42 Wound - Other Gram Stain - Final 02/02/18 08:42 Wound - Other Wound Culture - Final Staphylococcus aureus 02/01/18 08:47 Fluid - Synovial Fluid Gram Stain - Final 02/01/18 08:47 Fluid - Synovial Fluid Body Fluid Culture - Final Staphylococcus aureus 01/31/18 17:35 Blood - Peripheral Aerobic Blood Culture - Final Staphylococcus hominis-hominis 01/31/18 17:35 Blood - Peripheral Anaerobic Blood Culture - Preliminary gram positive cocci 02/02/18 08:42 Wound - Other Fungal Smear - Final No fungal elements seen 02/02/18 08:42 Wound - Other Acid Fast Bacilli Smear - Final No acid fast bacilli seen 02/02/18 08:42 Wound - Other Acid Fast Bacilli Smear - Final No acid fast bacilli seen - Procedures s/p Irrigation debridement of abscess to left below-knee amputation with wound VAC application by Dr Tejada 02/01/18 Left BKA Stump aspiration 02/01/18 by IR Assessment and Plan - Assessment (1) SENG (acute kidney injury) Code(s): N17.9 - Acute kidney failure, unspecified Status: Acute (2) Cellulitis Code(s): L03.90 - Cellulitis, unspecified Status: Acute (3) Diabetic foot ulcer Code(s): E11.621 - Type 2 diabetes mellitus with foot ulcer; L97.509 - Non- pressure chronic ulcer of other part of unspecified foot with unspecified severity Status: Acute - Plan 58 YOWM with IDDM, HLD, depression, anxiety, and history of L BKA admitted for BKA stump cellulitis with possible abscess as well as right diabetic foot ulcer. 1. Cellulitis and possible abscess of L BKA stump - 02/01: Seen by Orthopedic customer energy specialist saw fluid collection along the distal BKA stump, could be infection versus inflamed bursa, asked for Interventional Radiology for aspiration and sent fluid for cell count, cultures and gram stain, left NPO for probable surgery for tomorrow. - s/p Irrigation debridement of abscess to left below-knee amputation with wound VAC application by Dr Tejada 02/01/18 Left BKA Stump aspiration 02/01/18 by IR Maintain knee immobilizer and wound VAC. Wound VAC in place. Plan on washing out the left lower extremity Wednesday or Wednesday with final closure Follow cultures IV antibiotics per infectious disease 2. R diabetic foot ulcer with signs of infection - Right plantar wound at the ball of the foot that has essentially not been treated or had wound care - Obtain culture and Gram stain - IV antibiotics as above - XR with no signs of osteo - Consult podiatry and wound care nurse.' s/p surgery 02/03/18 3. Diabetes mellitus with hyperglycemia - uncontrolled, follow hemoglobin A1C, pre meal 5 units of Regular Insulin, increase Detemir to 25 units daily and Medium sliding scale. 4. Acute kidney injury - Pt denies any history of CKD though likely has underlying renal insufficiency - Last creatinine on file 2015 was 1.48 - Creatinine 1.72 on admission - Hold home LALO inhibitor and metformin - Watch creatinine carefully while on vancomycin and Zosyn, if worsens may have to change abx - IV fluids - Monitor renal function 5. Hyperlipidemia - Continue home statin 6. Anxiety - Continue home Xanax 7. Diabetic neuropathy - Continue home Cymbalta FEN: - Fluids: NS at 100 ml/hr - Electrolytes: mild hyponatremia, providing fluids; borderline elevated potassium, holding home LALO-I in light of SENG, continue to monitor - Nutrition: NPO after midnight DVT prophylaxis: SCDs, hold chemical anticoagulation should patient go to OR for I&D Code Status: Full code. Discussed Condition With: Patient, nurse, family Discharge Planning: Pending improvement and clearance by Specialists. s/p surgery 02/03/18 by podiatry On IV antibiotics (2) Cellulitis Qualifiers: Site of cellulitis: extremity Site of cellulitis of extremity: lower extremity Laterality: left Qualified Code(s): L03.116 - Cellulitis of left lower limb (3) Diabetic foot ulcer Qualifiers: Diabetic foot ulcer location: midfoot Diabetes mellitus type: type 2 Laterality: right
[2018-02-04] MEDS: Insulin Detemir Inj 1,000 UNIT/10 ML Vial SQ SCH (22:18)
[2018-02-05] MEDS: Piperacil/Tazo 4.5 GM Premix 4.5 GM/100 ML BAG IV.SIG SCH ×5 (03:37→21:04)
[2018-02-05] MEDS: Insulin NovoLOG Aspart Correctional Sugar Inj SQ SCH ×8 (03:39→21:02)
[2018-02-05 05:37] LABS: Baso % (Auto) 0.9 % (0.0-2.0); Eos # (Auto) 0.2 th/mm3 (0.0-0.4); Eos % (Auto) 3.6 % (0.0-4.0); Hematocrit 36.5 % (39.0-51.0); Hemoglobin 12.4 gm/dL (13.0-17.0); Lymph # (Auto) 0.7 th/mm3 (1.0-4.8); Lymph % (Auto) 14.5 % (9.0-44.0); Mean Corpuscular Hemoglobin 31.3 pg (27.0-34.0); Mean Corpuscular Volume 92.1 fL (80.0-100.0); Mean Platelet Volume 8.8 fL (7.0-11.0); Mono # (Auto) 0.4 th/mm3 (0.0-0.9); Mono % (Auto) 7.2 % (0.0-8.0); Neut # (Auto) 3.7 th/mm3 (1.8-7.7); Neut % (Auto) 73.8 % (16.0-70.0); Platelet Count 223 th/mm3 (150-450); Red Blood Count 3.96 mil/mm3 (4.50-5.90)
[2018-02-05 06:01] LABS: Calcium 8.5 mg/dL (8.5-10.1); Carbon Dioxide 30.2 meq/L (21.0-32.0); Potassium 3.6 meq/L (3.5-5.1)
[2018-02-05] MEDS: ALPRAZolam 0.5 MG Tablet PO SCH ×2 (08:31→21:04)
[2018-02-05] MEDS: Senna/Docusate Sodium 8.6/50 MG Tablet PO SCH ×2 (08:31→21:04)
[2018-02-05] MEDS: Sod Chloride 0.9% Inj 1,000 ML IV.CONT SCH ×2 (08:33→18:47)
[2018-02-05] MEDS: Sodium Chloride 0.9% 2 ML Flush BID IV.FLUSH SCH ×2 (08:39→21:03)
--- NOTE | 2018-02-05 09:19 | P.PNOP ---
Subjective Interval history: s/p I&D left BKA doign well. no changes Physical Exam Vital signs: Vital Signs 02/04/18 12:00 02/04/18 16:00 02/04/18 20:00 Temperature 97.7 F 97.2 F L 97.8 F Pulse Rate 87 80 75 Respiratory Rate 18 18 16 Blood Pressure 121/61 111/59 L 132/66 Pulse Oximetry 97 95 95 02/05/18 00:00 02/05/18 08:00 Temperature 97.6 F 98.0 F Pulse Rate 70 66 Respiratory Rate 16 18 Blood Pressure 126/60 133/63 Pulse Oximetry 98 96 Intake & Output 02/04/18 02/05/18 02/05/18 18:59 06:59 18:59 Intake Total 2915 / 2915 1440 / 1440 1000 / 1000 Output Total 1350 / 1350 Balance 2890 / 2890 90 / 90 1000 / 1000 Weight 127.6 kg Intake: IV 1715 / 1715 1200 / 1200 1000 / 1000 NS Inj 1,000 ML @ 100 mls/hr IV 1000 / 1000 1000 / 1000 1000 / 1000 .CONT .Q10H [facility] Rx#:[id number] Zosyn 4.5 GM Premix 4.5 gm In 200 / 200 200 / 200 100 ml @ 200 mls/hr IV.SIG Q6H [facility] Rx#:[id number] Vancomycin Inj 1,500 MG In NS 515 / 515 Inj 500 ML @ 250 mls/hr IV.SIG Q24H [facility] Rx#:[id number] Oral 1200 / 1200 240 / 240 Output: Urine 1350 / 1350 Wound Vac Amount 25 / 25 Left Leg 25 Other: Mode Setting Left Leg Intermittent Intermittent Date of Last Bowel Movement 02/01/18 02/01/18 Narrative: LLE: dressing clean and dry. intact. +vac. good seal Results - Labs CBC & Chem 7: 02/05/18 03:47 02/05/18 03:47 Laboratory Results - last 24 hr 02/04/18 02/04/18 02/04/18 14:15 16:53 22:12 WBC RBC Hgb Hct MCV MCH MCHC RDW Plt Count MPV Neut % (Auto) Lymph % (Auto) [place] % (Auto) Eos % (Auto) Baso % (Auto) Neut # (Auto) Lymph # (Auto) [place] # (Auto) Eos # (Auto) Baso # (Auto) WBC Differential Differential Comment Sodium Potassium Chloride Carbon Dioxide Anion Gap BUN Creatinine Estimated GFR POC Glucose 230 H 256 H Random Glucose Calcium Vancomycin Trough 14.4 H 02/05/18 02/05/18 02/05/18 03:37 03:47 03:47 WBC 5.0 RBC 3.96 L Hgb 12.4 L Hct 36.5 L MCV 92.1 MCH 31.3 MCHC 34.0 RDW 13.0 Plt Count 223 MPV 8.8 Neut % (Auto) 73.8 H Lymph % (Auto) 14.5 [place] % (Auto) 7.2 Eos % (Auto) 3.6 Baso % (Auto) 0.9 Neut # (Auto) 3.7 Lymph # (Auto) 0.7 L [place] # (Auto) 0.4 Eos # (Auto) 0.2 Baso # (Auto) 0.0 WBC Differential . Differential Comment Auto diff final Sodium 141 Potassium 3.6 D Chloride 104 Carbon Dioxide 30.2 Anion Gap 7 BUN 10 Creatinine 1.38 H Estimated GFR 53 L POC Glucose 186 H Random Glucose 199 H Calcium 8.5 Vancomycin Trough 02/05/18 07:35 WBC RBC Hgb Hct MCV MCH MCHC RDW Plt Count MPV Neut % (Auto) Lymph % (Auto) [place] % (Auto) Eos % (Auto) Baso % (Auto) Neut # (Auto) Lymph # (Auto) [place] # (Auto) Eos # (Auto) Baso # (Auto) WBC Differential Differential Comment Sodium Potassium Chloride Carbon Dioxide Anion Gap BUN Creatinine Estimated GFR POC Glucose 266 H Random Glucose Calcium Vancomycin Trough Microbiology 01/31/18 17:35 Blood - Peripheral Aerobic Blood Culture - Preliminary No growth in 4 days 01/31/18 17:35 Blood - Peripheral Anaerobic Blood Culture - Preliminary No growth in 4 days 02/02/18 08:42 Wound - Other Gram Stain - Final 02/02/18 08:42 Wound - Other Wound Culture - Final Staphylococcus aureus 02/02/18 08:42 Wound - Other Gram Stain - Final 02/02/18 08:42 Wound - Other Wound Culture - Final Staphylococcus aureus 02/01/18 08:47 Fluid - Synovial Fluid Gram Stain - Final 02/01/18 08:47 Fluid - Synovial Fluid Body Fluid Culture - Final Staphylococcus aureus 01/31/18 17:35 Blood - Peripheral Aerobic Blood Culture - Final Staphylococcus hominis-hominis 01/31/18 17:35 Blood - Peripheral Anaerobic Blood Culture - Preliminary gram positive cocci - Procedures s/p Irrigation debridement of abscess to left below-knee amputation with wound VAC application by Dr Tejada 02/01/18 Left BKA Stump aspiration 02/01/18 by IR Assessment and Plan - Assessment and Plan Abscess left BKA. SURGERY: Irrigation debridement of abscess to left below-knee amputation with wound VAC application POD 3 PLAN: Maintain knee immobilizer and wound VAC. Wound VAC is set at 125 mmHg at DPC 3-1 We will plan on washing out the left lower extremity Wednesday or Wednesday with final closure Follow cultures. Cultures growing staph species, SUNITHA to follow IV antibiotics per infectious disease
--- NOTE | 2018-02-05 09:22 | P.PN ---
Subjective Interval history: Pain at the surgical site. No fever or chills overnight. Eating better somehow, no much appetite. No nvdc. Physical Exam Vital signs: Vital Signs 02/04/18 12:00 02/04/18 16:00 02/04/18 20:00 Temperature 97.7 F 97.2 F L 97.8 F Pulse Rate 87 80 75 Respiratory Rate 18 18 16 Blood Pressure 121/61 111/59 L 132/66 Pulse Oximetry 97 95 95 02/05/18 00:00 02/05/18 08:00 Temperature 97.6 F 98.0 F Pulse Rate 70 66 Respiratory Rate 16 18 Blood Pressure 126/60 133/63 Pulse Oximetry 98 96 Intake & Output 02/04/18 02/05/18 02/05/18 18:59 06:59 18:59 Intake Total 2915 / 2915 1440 / 1440 1000 / 1000 Output Total 1350 / 1350 Balance 2890 / 2890 90 / 90 1000 / 1000 Weight 127.6 kg Intake: IV 1715 / 1715 1200 / 1200 1000 / 1000 NS Inj 1,000 ML @ 100 mls/hr IV 1000 / 1000 1000 / 1000 1000 / 1000 .CONT .Q10H [facility] Rx#:[id number] Zosyn 4.5 GM Premix 4.5 gm In 200 / 200 200 / 200 100 ml @ 200 mls/hr IV.SIG Q6H [facility] Rx#:[id number] Vancomycin Inj 1,500 MG In NS 515 / 515 Inj 500 ML @ 250 mls/hr IV.SIG Q24H [facility] Rx#:[id number] Oral 1200 / 1200 240 / 240 Output: Urine 1350 / 1350 Wound Vac Amount 25 / 25 Left Leg 25 Other: Mode Setting Left Leg Intermittent Intermittent Date of Last Bowel Movement 02/01/18 02/01/18 Narrative: GENERAL: No acute distress. moderately disheveled. SKIN: Warm and dry. Seborrheic dermatitis over the face. HEENT: AT/NC. PERRLA. EOMI. No scleral icterus or conjunctival injection. MMM. NECK: Supple no tender LAD or JVD. CARDIOVASCULAR: RRR no m/r/g. RESPIRATORY: CTAB without wheezes or crackles. ABDOMEN: +BS, soft, NT, ND. EXTREMITIES: Left BKA. Wound vac in place. Knee immobilizer in place. Right foot wrapped c/d/i. NEURO: Awake and alert. Nonfocal. Speech is normal. Results - Labs CBC & Chem 7: 02/05/18 03:47 02/05/18 03:47 Laboratory Results - last 24 hr 02/04/18 02/04/18 02/04/18 14:15 16:53 22:12 WBC RBC Hgb Hct MCV MCH MCHC RDW Plt Count MPV Neut % (Auto) Lymph % (Auto) [place] % (Auto) Eos % (Auto) Baso % (Auto) Neut # (Auto) Lymph # (Auto) [place] # (Auto) Eos # (Auto) Baso # (Auto) WBC Differential Differential Comment Sodium Potassium Chloride Carbon Dioxide Anion Gap BUN Creatinine Estimated GFR POC Glucose 230 H 256 H Random Glucose Calcium Vancomycin Trough 14.4 H 02/05/18 02/05/18 02/05/18 03:37 03:47 03:47 WBC 5.0 RBC 3.96 L Hgb 12.4 L Hct 36.5 L MCV 92.1 MCH 31.3 MCHC 34.0 RDW 13.0 Plt Count 223 MPV 8.8 Neut % (Auto) 73.8 H Lymph % (Auto) 14.5 [place] % (Auto) 7.2 Eos % (Auto) 3.6 Baso % (Auto) 0.9 Neut # (Auto) 3.7 Lymph # (Auto) 0.7 L [place] # (Auto) 0.4 Eos # (Auto) 0.2 Baso # (Auto) 0.0 WBC Differential . Differential Comment Auto diff final Sodium 141 Potassium 3.6 D Chloride 104 Carbon Dioxide 30.2 Anion Gap 7 BUN 10 Creatinine 1.38 H Estimated GFR 53 L POC Glucose 186 H Random Glucose 199 H Calcium 8.5 Vancomycin Trough 02/05/18 07:35 WBC RBC Hgb Hct MCV MCH MCHC RDW Plt Count MPV Neut % (Auto) Lymph % (Auto) [place] % (Auto) Eos % (Auto) Baso % (Auto) Neut # (Auto) Lymph # (Auto) [place] # (Auto) Eos # (Auto) Baso # (Auto) WBC Differential Differential Comment Sodium Potassium Chloride Carbon Dioxide Anion Gap BUN Creatinine Estimated GFR POC Glucose 266 H Random Glucose Calcium Vancomycin Trough Microbiology 01/31/18 17:35 Blood - Peripheral Aerobic Blood Culture - Preliminary No growth in 4 days 01/31/18 17:35 Blood - Peripheral Anaerobic Blood Culture - Preliminary No growth in 4 days 02/02/18 08:42 Wound - Other Gram Stain - Final 02/02/18 08:42 Wound - Other Wound Culture - Final Staphylococcus aureus 02/02/18 08:42 Wound - Other Gram Stain - Final 02/02/18 08:42 Wound - Other Wound Culture - Final Staphylococcus aureus 02/01/18 08:47 Fluid - Synovial Fluid Gram Stain - Final 02/01/18 08:47 Fluid - Synovial Fluid Body Fluid Culture - Final Staphylococcus aureus 01/31/18 17:35 Blood - Peripheral Aerobic Blood Culture - Final Staphylococcus hominis-hominis 01/31/18 17:35 Blood - Peripheral Anaerobic Blood Culture - Preliminary gram positive cocci - Procedures s/p Irrigation debridement of abscess to left below-knee amputation with wound VAC application by Dr Tejada 02/01/18 Left BKA Stump aspiration 02/01/18 by IR Assessment and Plan - Assessment (1) SENG (acute kidney injury) Code(s): N17.9 - Acute kidney failure, unspecified Status: Acute (2) Cellulitis Code(s): L03.90 - Cellulitis, unspecified Status: Acute (3) Diabetic foot ulcer Code(s): E11.621 - Type 2 diabetes mellitus with foot ulcer; L97.509 - Non- pressure chronic ulcer of other part of unspecified foot with unspecified severity Status: Acute - Plan 58 YOWM with IDDM, HLD, depression, anxiety, and history of L BKA admitted for BKA stump cellulitis with possible abscess as well as right diabetic foot ulcer. 1. Cellulitis and possible abscess of L BKA stump - 02/01: Seen by Orthopedic export freight specialist saw fluid collection along the distal BKA stump, could be infection versus inflamed bursa, asked for Interventional Radiology for aspiration and sent fluid for cell count, cultures and gram stain, left NPO for probable surgery for tomorrow. - s/p Irrigation debridement of abscess to left below-knee amputation with wound VAC application by Dr Tejada 02/01/18 Left BKA Stump aspiration 02/01/18 by IR Maintain knee immobilizer and wound VAC. Wound VAC in place. Plan on washing out the left lower extremity Wednesday or Wednesday with final closure Follow cultures, wound cultures grows staph aureus IV antibiotics per infectious disease 2. R diabetic foot ulcer with signs of infection - Right plantar wound at the ball of the foot that has essentially not been treated or had wound care - Obtain culture and Gram stain - IV antibiotics as above - XR with no signs of osteo - Consult podiatry and wound care nurse.' s/p surgery 02/03/18 3. Diabetes mellitus with hyperglycemia - uncontrolled, follow hemoglobin A1C, pre meal 5 units of Regular Insulin, increase Detemir to 25 units daily and Medium sliding scale. 4. Acute kidney injury - Pt denies any history of CKD though likely has underlying renal insufficiency - Last creatinine on file 2015 was 1.48 - Creatinine 1.72 on admission - Hold home LALO inhibitor and metformin - Watch creatinine carefully while on vancomycin and Zosyn, if worsens may have to change abx. - IV fluids - Monitor renal function 5. Hyperlipidemia - Continue home statin 6. Anxiety - Continue home Xanax 7. Diabetic neuropathy - Continue home Cymbalta FEN: - Fluids: NS at 100 ml/hr - Electrolytes: mild hyponatremia, providing fluids; borderline elevated potassium, holding home LALO-I in light of SENG, continue to monitor - Nutrition: NPO after midnight DVT prophylaxis: SCDs, hold chemical anticoagulation should patient go to OR for I&D Code Status: Full code. Discussed Condition With: Patient, nurse, family Discharge Planning: Pending improvement and clearance by Specialists. s/p surgery 02/03/18 by podiatry Plan on washing out the left lower extremity Wednesday or Wednesday with final closure On IV antibiotics ID ff as well (2) Cellulitis Qualifiers: Site of cellulitis: extremity Site of cellulitis of extremity: lower extremity Laterality: left Qualified Code(s): L03.116 - Cellulitis of left lower limb (3) Diabetic foot ulcer Qualifiers: Diabetic foot ulcer location: midfoot Diabetes mellitus type: type 2 Laterality: right
[2018-02-05] MEDS: Vancomycin Inj 1,500 MG in Sodium Chlor 0.9% Inj 500 ML IV.SIG SCH (11:37)
[2018-02-05] MEDS: Insulin Detemir Inj 1,000 UNIT/10 ML Vial SQ SCH (21:02)
[2018-02-06] MEDS: Insulin NovoLOG Aspart Correctional Sugar Inj SQ SCH ×8 (03:38→20:21)
[2018-02-06] MEDS: Piperacil/Tazo 4.5 GM Premix 4.5 GM/100 ML BAG IV.SIG SCH ×2 (03:38→09:30)
[2018-02-06] MEDS: Sod Chloride 0.9% Inj 1,000 ML IV.CONT SCH ×2 (04:38→18:45)
[2018-02-06 05:09] LABS: Baso % (Auto) 0.9 % (0.0-2.0); Eos # (Auto) 0.2 th/mm3 (0.0-0.4); Eos % (Auto) 4.5 % (0.0-4.0); Hematocrit 35.5 % (39.0-51.0); Hemoglobin 11.9 gm/dL (13.0-17.0); Lymph # (Auto) 1.1 th/mm3 (1.0-4.8); Mean Corpuscular HGB Conc 33.4 % (32.0-36.0); Mean Corpuscular Hemoglobin 31.1 pg (27.0-34.0); Mean Corpuscular Volume 93.3 fL (80.0-100.0); Mean Platelet Volume 8.4 fL (7.0-11.0); Mono # (Auto) 0.4 th/mm3 (0.0-0.9); Neut # (Auto) 3.1 th/mm3 (1.8-7.7); Neut % (Auto) 63.6 % (16.0-70.0); Platelet Count 219 th/mm3 (150-450); Red Blood Count 3.81 mil/mm3 (4.50-5.90); Red Cell Distribution Width 12.8 % (11.6-17.2); White Blood Count 4.9 th/mm3 (4.0-11.0)
[2018-02-06 05:27] LABS: Calcium 8.1 mg/dL (8.5-10.1); Potassium 4.1 meq/L (3.5-5.1)
--- NOTE | 2018-02-06 07:02 | P.PNOP ---
Subjective Interval history: s/p I&D with vac application left BKA stump no changes. doing well Physical Exam Vital signs: Vital Signs 02/05/18 08:00 02/05/18 12:00 02/05/18 16:00 Temperature 98.0 F 97.6 F 98.1 F Pulse Rate 66 73 72 Respiratory Rate 18 19 17 Blood Pressure 133/63 126/60 108/63 Pulse Oximetry 96 95 95 02/05/18 20:00 02/06/18 00:00 Temperature 97.4 F L 98 F Pulse Rate 82 79 Respiratory Rate 18 18 Blood Pressure 134/62 136/70 Pulse Oximetry 95 94 L Intake & Output 02/05/18 02/06/18 02/06/18 18:59 06:59 18:59 Intake Total 3190 / 3190 1680 / 1680 Output Total 400 / 400 1100 / 1100 Balance 2790 / 2790 580 / 580 Weight 129.1 kg Intake: IV 2715 / 2715 1200 / 1200 NS Inj 1,000 ML @ 100 mls/hr IV 2000 / 2000 1000 / 1000 .CONT .Q10H [facility] Rx#:[id number] Zosyn 4.5 GM Premix 4.5 gm In 200 / 200 200 / 200 100 ml @ 200 mls/hr IV.SIG Q6H [facility] Rx#:[id number] Vancomycin Inj 1,500 MG In NS 515 / 515 Inj 500 ML @ 250 mls/hr IV.SIG Q24H [facility] Rx#:[id number] Oral 475 / 475 480 / 480 Output: Urine 400 / 400 1100 / 1100 Other: Mode Setting Left Leg Intermittent Date of Last Bowel Movement 02/01/18 # Bowel Movements 0 Narrative: LLE: +vac. good seal. + knee brce Results - Labs CBC & Chem 7: 02/06/18 04:03 02/06/18 04:03 Laboratory Results - last 24 hr 02/05/18 02/05/18 02/05/18 07:35 17:51 19:57 WBC RBC Hgb Hct MCV MCH MCHC RDW Plt Count MPV Neut % (Auto) Lymph % (Auto) [place] % (Auto) Eos % (Auto) Baso % (Auto) Neut # (Auto) Lymph # (Auto) [place] # (Auto) Eos # (Auto) Baso # (Auto) WBC Differential Differential Comment Sodium Potassium Chloride Carbon Dioxide Anion Gap BUN Creatinine Estimated GFR POC Glucose 266 H 69 260 H Random Glucose Calcium 02/06/18 02/06/18 02/06/18 03:28 04:03 04:03 WBC 4.9 RBC 3.81 L Hgb 11.9 L Hct 35.5 L MCV 93.3 MCH 31.1 MCHC 33.4 RDW 12.8 Plt Count 219 MPV 8.4 Neut % (Auto) 63.6 Lymph % (Auto) 23.0 [place] % (Auto) 8.0 Eos % (Auto) 4.5 H Baso % (Auto) 0.9 Neut # (Auto) 3.1 Lymph # (Auto) 1.1 [place] # (Auto) 0.4 Eos # (Auto) 0.2 Baso # (Auto) 0.0 WBC Differential . Differential Comment Auto diff final Sodium 143 Potassium 4.1 Chloride 104 Carbon Dioxide 33.0 H Anion Gap 6 BUN 10 Creatinine 1.59 H Estimated GFR 45 L POC Glucose 199 H Random Glucose 206 H Calcium 8.1 L Microbiology 01/31/18 17:35 Blood - Peripheral Aerobic Blood Culture - Final Staphylococcus hominis-hominis 01/31/18 17:35 Blood - Peripheral Anaerobic Blood Culture - Final Staphylococcus coag negative 01/31/18 17:35 Blood - Peripheral Aerobic Blood Culture - Final No growth in 5 days 01/31/18 17:35 Blood - Peripheral Anaerobic Blood Culture - Final No growth in 5 days - Procedures s/p Irrigation debridement of abscess to left below-knee amputation with wound VAC application by Dr Tejada 02/01/18 Left BKA Stump aspiration 02/01/18 by IR Assessment and Plan - Assessment and Plan Abscess left BKA. SURGERY: Irrigation debridement of abscess to left below-knee amputation with wound VAC application POD 4 PLAN: Maintain knee immobilizer and wound VAC. Wound VAC is set at 125 mmHg at DPC 3-1 We will plan on washing out the left lower extremity Wednesday with final closure Follow cultures. Cultures growing staph species, SUNITHA to follow IV antibiotics per infectious disease npo after MN sign consents
[2018-02-06] MEDS: ALPRAZolam 0.5 MG Tablet PO SCH ×2 (08:33→20:20)
[2018-02-06] MEDS: Senna/Docusate Sodium 8.6/50 MG Tablet PO SCH ×2 (08:33→20:19)
[2018-02-06] MEDS: Sodium Chloride 0.9% 2 ML Flush BID IV.FLUSH SCH ×2 (08:35→20:22)
[2018-02-06] MEDS: Vancomycin Inj 1,500 MG in Sodium Chlor 0.9% Inj 500 ML IV.SIG SCH (12:32)
--- NOTE | 2018-02-06 13:03 | P.PN ---
Subjective Interval history: The patient is in bed since he has less pain at the surgical site left leg. Wound VAC in place. Says right leg does not hurt. No fever or chills overnight. Appetite is getting better and thinks he is eating a little bit better. Plan for surgery tomorrow Physical Exam Vital signs: Vital Signs 02/05/18 16:00 02/05/18 20:00 02/06/18 00:00 Temperature 98.1 F 97.4 F L 98 F Pulse Rate 72 82 79 Respiratory Rate 17 18 18 Blood Pressure 108/63 134/62 136/70 Pulse Oximetry 95 95 94 L 02/06/18 08:00 Temperature 97.9 F Pulse Rate 66 Respiratory Rate 18 Blood Pressure 147/67 H Pulse Oximetry 98 Intake & Output 02/05/18 02/06/18 02/06/18 18:59 06:59 18:59 Intake Total 3190 / 3190 1680 / 1680 1100 / 1100 Output Total 400 / 400 1100 / 1100 Balance 2790 / 2790 580 / 580 1100 / 1100 Weight 129.1 kg Intake: IV 2715 / 2715 1200 / 1200 1100 / 1100 NS Inj 1,000 ML @ 100 mls/hr IV 2000 / 2000 1000 / 1000 1000 / 1000 .CONT .Q10H [facility] Rx#:[id number] Zosyn 4.5 GM Premix 4.5 gm In 200 / 200 200 / 200 100 / 100 100 ml @ 200 mls/hr IV.SIG Q6H [facility] Rx#:[id number] Vancomycin Inj 1,500 MG In NS 515 / 515 Inj 500 ML @ 250 mls/hr IV.SIG Q24H [facility] Rx#:[id number] Oral 475 / 475 480 / 480 Output: Urine 400 / 400 1100 / 1100 Other: Mode Setting Left Leg Intermittent Continuous Date of Last Bowel Movement 02/01/18 # Bowel Movements 0 Narrative: GENERAL: Pleasant 58-year-old male, chronically ill, appears in no acute distress at this time. SKIN: Warm and dry. Seborrheic dermatitis over the face. CARDIOVASCULAR: RRR no m/r/g. RESPIRATORY: CTAB without wheezes or crackles. ABDOMEN: +BS, soft, NT, ND. EXTREMITIES: Left BKA. Wound vac in place. Knee immobilizer in place. Right foot wrapped c/d/i. NEURO: Awake and alert. Nonfocal. Speech is normal. Results - Labs CBC & Chem 7: 02/06/18 04:03 02/06/18 04:03 Laboratory Results - last 24 hr 02/05/18 02/05/18 02/06/18 17:51 19:57 03:28 WBC RBC Hgb Hct MCV MCH MCHC RDW Plt Count MPV Neut % (Auto) Lymph % (Auto) [place] % (Auto) Eos % (Auto) Baso % (Auto) Neut # (Auto) Lymph # (Auto) [place] # (Auto) Eos # (Auto) Baso # (Auto) WBC Differential Differential Comment Sodium Potassium Chloride Carbon Dioxide Anion Gap BUN Creatinine Estimated GFR POC Glucose 69 260 H 199 H Random Glucose Calcium 02/06/18 02/06/18 02/06/18 04:03 04:03 07:50 WBC 4.9 RBC 3.81 L Hgb 11.9 L Hct 35.5 L MCV 93.3 MCH 31.1 MCHC 33.4 RDW 12.8 Plt Count 219 MPV 8.4 Neut % (Auto) 63.6 Lymph % (Auto) 23.0 [place] % (Auto) 8.0 Eos % (Auto) 4.5 H Baso % (Auto) 0.9 Neut # (Auto) 3.1 Lymph # (Auto) 1.1 [place] # (Auto) 0.4 Eos # (Auto) 0.2 Baso # (Auto) 0.0 WBC Differential . Differential Comment Auto diff final Sodium 143 Potassium 4.1 Chloride 104 Carbon Dioxide 33.0 H Anion Gap 6 BUN 10 Creatinine 1.59 H Estimated GFR 45 L POC Glucose 173 H Random Glucose 206 H Calcium 8.1 L 02/06/18 11:44 WBC RBC Hgb Hct MCV MCH MCHC RDW Plt Count MPV Neut % (Auto) Lymph % (Auto) [place] % (Auto) Eos % (Auto) Baso % (Auto) Neut # (Auto) Lymph # (Auto) [place] # (Auto) Eos # (Auto) Baso # (Auto) WBC Differential Differential Comment Sodium Potassium Chloride Carbon Dioxide Anion Gap BUN Creatinine Estimated GFR POC Glucose 199 H Random Glucose Calcium Microbiology 01/31/18 17:35 Blood - Peripheral Aerobic Blood Culture - Final Staphylococcus hominis-hominis 01/31/18 17:35 Blood - Peripheral Anaerobic Blood Culture - Final Staphylococcus coag negative 01/31/18 17:35 Blood - Peripheral Aerobic Blood Culture - Final No growth in 5 days 01/31/18 17:35 Blood - Peripheral Anaerobic Blood Culture - Final No growth in 5 days - Procedures s/p Irrigation debridement of abscess to left below-knee amputation with wound VAC application by Dr Tejada 02/01/18 Left BKA Stump aspiration 02/01/18 by IR Assessment and Plan - Assessment (1) SENG (acute kidney injury) Code(s): N17.9 - Acute kidney failure, unspecified Status: Acute (2) Cellulitis Code(s): L03.90 - Cellulitis, unspecified Status: Acute (3) Diabetic foot ulcer Code(s): E11.621 - Type 2 diabetes mellitus with foot ulcer; L97.509 - Non- pressure chronic ulcer of other part of unspecified foot with unspecified severity Status: Acute - Plan 58 YOWM with IDDM, HLD, depression, anxiety, and history of L BKA admitted for BKA stump cellulitis with possible abscess as well as right diabetic foot ulcer. 1. Cellulitis and possible abscess of L BKA stump - 02/01: Seen by Orthopedic school psychology specialist saw fluid collection along the distal BKA stump, could be infection versus inflamed bursa, asked for Interventional Radiology for aspiration and sent fluid for cell count, cultures and gram stain, left NPO for probable surgery for tomorrow. - s/p Irrigation debridement of abscess to left below-knee amputation with wound VAC application by Dr Tejada 02/01/18 Left BKA Stump aspiration 02/01/18 by IR Maintain knee immobilizer and wound VAC. Wound VAC in place. Plan on washing out the left lower extremity Wednesday or Wednesday with final closure Follow cultures, wound cultures grows staph aureus IV antibiotics per infectious disease 2. R diabetic foot ulcer with signs of infection - Right plantar wound at the ball of the foot that has essentially not been treated or had wound care - Obtain culture and Gram stain - IV antibiotics as above - XR with no signs of osteo - Consult podiatry and wound care nurse.' s/p surgery 02/03/18 3. Diabetes mellitus with hyperglycemia - uncontrolled, follow hemoglobin A1C, pre meal 5 units of Regular Insulin, increase Detemir to 25 units daily and Medium sliding scale. 4. Acute kidney injury - Pt denies any history of CKD though likely has underlying renal insufficiency - Last creatinine on file 2015 was 1.48 - Creatinine 1.72 on admission - Hold home LALO inhibitor and metformin - Watch creatinine carefully while on vancomycin and Zosyn, if worsens may have to change abx. - IV fluids - Monitor renal function 5. Hyperlipidemia - Continue home statin 6. Anxiety - Continue home Xanax 7. Diabetic neuropathy - Continue home Cymbalta FEN: - Fluids: NS at 100 ml/hr - Electrolytes: mild hyponatremia, providing fluids; borderline elevated potassium, holding home LALO-I in light of SENG, continue to monitor - Nutrition: NPO after midnight DVT prophylaxis: SCDs, hold chemical anticoagulation should patient go to OR for I&D Code Status: Full code. Discussed Condition With: Patient, nurse, family Discharge Planning: Pending improvement and clearance by Specialists. s/p surgery 02/03/18 by podiatry Plan on washing out the left lower extremity Wednesday or Wednesday with final closure On IV antibiotics ID ff as well (2) Cellulitis Qualifiers: Site of cellulitis: extremity Site of cellulitis of extremity: lower extremity Laterality: left Qualified Code(s): L03.116 - Cellulitis of left lower limb (3) Diabetic foot ulcer Qualifiers: Diabetic foot ulcer location: midfoot Diabetes mellitus type: type 2 Laterality: right
--- NOTE | 2018-02-06 15:02 | MB ---
cc: Wong Montes MD DATE: 02/06/2018 REQUESTING PHYSICIAN: Atiya Franklin MD REASON FOR CONSULTATION: Septic arthritis, Staphylococcus aureus, for antibiotic recommendation. HISTORY OF PRESENT ILLNESS: This is a 58-year-old white male who has history of left eghit-dwg-[id number] amputation. The patient developed pain in the left stump approximately 4 weeks ago. He presented to the emergency department on 01/31/2018 for evaluation and was noted to have erythema at the left stump. His white count was normal. An x-ray of the knee showed significant soft tissue swelling surrounding the tibia and fibula stump. There was also nonspecific fluid collection seen inferior to the tibia and abutting the inferior aspect of the tibia and extending anteriorly at the distal tibia. The latter was noted on CT scan. The patient was evaluated by orthopedic surgery and underwent I and D and a wound VAC was applied. Culture from the wound had Staphylococcus aureus sensitive to oxacillin. Admission blood culture has 2 coag-negative Staph species in one set, and the second set of blood culture is negative. The patient is currently sitting up in a bedside chair. He has no complaints currently. He has been afebrile. He is currently receiving vancomycin and piperacillin/tazobactam. This consultation was requested for antibiotic recommendation. PAST MEDICAL HISTORY: Diabetes mellitus, hypertension, hyperlipidemia, anxiety, depression, history of yatoj-srb-rmyh amputation on the left in 2001. ALLERGIES: NONE. MEDICATIONS: 1. Piperacillin/tazobactam. 2. Vancomycin. 3. Alba-Colace. SOCIAL HISTORY: No tobacco. Former smoker. No alcohol. No illicit drugs. FAMILY HISTORY: Noncontributory. REVIEW OF SYSTEMS: Negative 10-point review. PHYSICAL EXAM: GENERAL: This is a well-developed male who is in no acute distress. He is awake and alert and oriented. VITAL SIGNS: Temperature 97.9, BP 147/67, respirations 18, heart rate 66. HEENT: Head is atraumatic. Extraocular movements are grossly intact. Pupils reactive to light. No icterus. Oropharynx moist mucosa without lesions. NECK: Supple, no adenopathy. LUNGS: Clear to auscultation. HEART: Regular S1, S2. ABDOMEN: Bowel sounds present. Soft, no tenderness. RECTAL: Not performed. EXTREMITIES: The left stump has a wound VAC in place. The wound is wrapped in surgical dressing. This was not unwrapped for inspection at this time. SKIN: No rash. NEUROLOGIC: Nonfocal. PSYCHIATRIC: The patient is calm, pleasant and cooperative. LABORATORY DATA: WBC 4.9, platelets 219. Creatinine 1.59, estimated GFR 45. Sodium 143. Synovial fluid from 02/01/2018 had 270,500 white cells with 98% neutrophils. IMPRESSION: Abscess of the left leg stump and left below knee amputation stump wound infection. Culture growing Staphylococcus aureus. RECOMMENDATIONS: 1. Discontinue piperacillin/tazobactam. 2. Continue vancomycin. Plan on giving the patient 4 weeks of vancomycin via PICC line depending on culture. Thank you for this consultation. MD LIAT Noriega/veronica , 12:12 PM , 12:21 PM SUKI
[2018-02-06] MEDS ORDERED: Metoprolol Tartrate 25 MG Tablet PO SCH (19:55)
[2018-02-06] MEDS ORDERED: Chlorhexidine Gluconate 2% 1 Pack (2 Cloths) TOPICAL SCH (19:55)
[2018-02-06] MEDS ORDERED: Sodium Chlor 0.9% Inj 500 ML IV.SIG SCH (20:00)
[2018-02-06] MEDS: Insulin Detemir Inj 1,000 UNIT/10 ML Vial SQ SCH (20:20)
[2018-02-07] MEDS: Sod Chloride 0.9% Inj 1,000 ML IV.CONT SCH ×3 (00:22→22:22)
[2018-02-07] MEDS: Insulin NovoLOG Aspart Correctional Sugar Inj SQ SCH ×8 (03:22→22:20)
[2018-02-07 06:44] LABS: Baso % (Auto) 0.8 % (0.0-2.0); Eos # (Auto) 0.2 th/mm3 (0.0-0.4); Eos % (Auto) 4.3 % (0.0-4.0); Hematocrit 36.7 % (39.0-51.0); Hemoglobin 12.2 gm/dL (13.0-17.0); Lymph # (Auto) 0.9 th/mm3 (1.0-4.8); Lymph % (Auto) 18.9 % (9.0-44.0); Mean Corpuscular HGB Conc 33.3 % (32.0-36.0); Mean Corpuscular Hemoglobin 31.2 pg (27.0-34.0); Mean Corpuscular Volume 93.8 fL (80.0-100.0); Mean Platelet Volume 8.3 fL (7.0-11.0); Mono # (Auto) 0.4 th/mm3 (0.0-0.9); Mono % (Auto) 8.8 % (0.0-8.0); Neut # (Auto) 3.2 th/mm3 (1.8-7.7); Neut % (Auto) 67.2 % (16.0-70.0); Platelet Count 218 th/mm3 (150-450); Red Blood Count 3.91 mil/mm3 (4.50-5.90); Red Cell Distribution Width 12.7 % (11.6-17.2); White Blood Count 4.8 th/mm3 (4.0-11.0)
--- NOTE | 2018-02-07 06:45 | P.PNOP ---
Subjective Interval history: Rashid is awake and alert. No new complaints. Physical Exam Vital signs: Vital Signs 02/06/18 08:00 02/06/18 12:00 02/06/18 16:00 Temperature 97.9 F 98.1 F 97.7 F Pulse Rate 66 66 75 Respiratory Rate 18 19 20 Blood Pressure 147/67 H 133/63 136/65 Pulse Oximetry 98 97 94 L 02/06/18 20:00 02/07/18 00:00 Temperature 98 F 97.8 F Pulse Rate 69 69 Respiratory Rate 18 18 Blood Pressure 159/76 H 165/77 H Pulse Oximetry 94 L 96 Intake & Output 02/06/18 02/06/18 02/07/18 06:59 18:59 06:59 Intake Total 1680 / 1680 2115 / 2115 0 / 0 Output Total 1100 / 1100 600 / 600 2400 / 2400 Balance 580 / 580 1515 / 1515 -2400 / -2400 Weight 129.1 kg 127.3 kg Intake: IV 1200 / 1200 1615 / 1615 NS Inj 1,000 ML @ 100 mls/hr IV 1000 / 1000 1000 / 1000 .CONT .Q10H [facility] Rx#:[id number] Zosyn 4.5 GM Premix 4.5 gm In 200 / 200 100 / 100 100 ml @ 200 mls/hr IV.SIG Q6H [facility] Rx#:[id number] Vancomycin Inj 1,500 MG In NS 515 / 515 Inj 500 ML @ 250 mls/hr IV.SIG Q24H [facility] Rx#:[id number] Oral 480 / 480 500 / 500 0 / 0 Output: Urine 1100 / 1100 600 / 600 2400 / 2400 Wound Vac Amount 0 / 0 Left Leg 0 / 0 Other: Mode Setting Left Leg Continuous Continuous # Bowel Movements 0 Narrative: Left leg has knee immobilizer on. VAC dressing on left BKA stump. VAC sealed appropriately. Results - Labs CBC & Chem 7: 02/06/18 04:03 02/06/18 04:03 Laboratory Results - last 24 hr 02/06/18 02/06/18 02/06/18 07:50 11:44 16:24 POC Glucose 173 H 199 H 210 H 02/06/18 02/07/18 19:38 03:19 POC Glucose 228 H 153 H - Procedures s/p Irrigation debridement of abscess to left below-knee amputation with wound VAC application by Dr Tejada 02/01/18 Left BKA Stump aspiration 02/01/18 by IR Assessment and Plan - Assessment and Plan Diagnosis: Abscess left BKA. SURGERY: Irrigation debridement of abscess to left below-knee amputation with wound VAC application POD 5 PLAN: Plan on surgery today for repeat irrigation and debridement and possible wound closure IV antibiotics per infectious disease npo sign consents
[2018-02-07 07:06] LABS: Carbon Dioxide 30.5 meq/L (21.0-32.0); Potassium 4.4 meq/L (3.5-5.1)
--- NOTE | 2018-02-07 08:22 | P.PN ---
Subjective Interval history: Seen after surgery today Has more pain at the surgical site nor today after the surgery. No fever or chills. No nausea or vomiting. Wants to eat. Appetite is coming back. Physical Exam Vital signs: Vital Signs 02/06/18 12:00 02/06/18 16:00 02/06/18 20:00 Temperature 98.1 F 97.7 F 98 F Pulse Rate 66 75 69 Respiratory Rate 19 20 18 Blood Pressure 133/63 136/65 159/76 H Pulse Oximetry 97 94 L 94 L 02/07/18 00:00 02/07/18 08:00 Temperature 97.8 F 98.1 F Pulse Rate 69 71 Respiratory Rate 18 18 Blood Pressure 165/77 H 159/72 H Pulse Oximetry 96 96 Intake & Output 02/06/18 02/07/18 02/07/18 18:59 06:59 18:59 Intake Total 2115 / 2115 0 / 0 Output Total 600 / 600 2400 / 2400 Balance 1515 / 1515 -2400 / -2400 Weight 127.3 kg Intake: IV 1615 / 1615 NS Inj 1,000 ML @ 100 mls/hr IV 1000 / 1000 .CONT .Q10H [facility] Rx#:[id number] Zosyn 4.5 GM Premix 4.5 gm In 100 / 100 100 ml @ 200 mls/hr IV.SIG Q6H [facility] Rx#:[id number] Vancomycin Inj 1,500 MG In NS 515 / 515 Inj 500 ML @ 250 mls/hr IV.SIG Q24H [facility] Rx#:[id number] Oral 500 / 500 0 / 0 Output: Urine 600 / 600 2400 / 2400 Wound Vac Amount 0 / 0 Left Leg 0 / 0 Other: Mode Setting Left Leg Continuous Continuous # Bowel Movements 0 Narrative: Left leg has knee immobilizer on. VAC dressing on left BKA stump. VAC sealed appropriately. Results - Labs CBC & Chem 7: 02/07/18 06:00 02/07/18 04:39 Laboratory Results - last 24 hr 02/06/18 02/06/18 02/06/18 11:44 16:24 19:38 WBC RBC Hgb Hct MCV MCH MCHC RDW Plt Count MPV Neut % (Auto) Lymph % (Auto) [place] % (Auto) Eos % (Auto) Baso % (Auto) Neut # (Auto) Lymph # (Auto) [place] # (Auto) Eos # (Auto) Baso # (Auto) WBC Differential Differential Comment Sodium Potassium Chloride Carbon Dioxide Anion Gap BUN Creatinine Estimated GFR POC Glucose 199 H 210 H 228 H Random Glucose Calcium 02/07/18 02/07/18 02/07/18 03:19 04:39 06:00 WBC 4.8 RBC 3.91 L Hgb 12.2 L Hct 36.7 L MCV 93.8 MCH 31.2 MCHC 33.3 RDW 12.7 Plt Count 218 MPV 8.3 Neut % (Auto) 67.2 Lymph % (Auto) 18.9 [place] % (Auto) 8.8 H Eos % (Auto) 4.3 H Baso % (Auto) 0.8 Neut # (Auto) 3.2 Lymph # (Auto) 0.9 L [place] # (Auto) 0.4 Eos # (Auto) 0.2 Baso # (Auto) 0.0 WBC Differential . Differential Comment Auto diff final Sodium 141 Potassium 4.4 Chloride 105 Carbon Dioxide 30.5 Anion Gap 6 BUN 9 Creatinine 1.35 H Estimated GFR 54 L POC Glucose 153 H Random Glucose 173 H Calcium 8.0 L 02/07/18 07:23 WBC RBC Hgb Hct MCV MCH MCHC RDW Plt Count MPV Neut % (Auto) Lymph % (Auto) [place] % (Auto) Eos % (Auto) Baso % (Auto) Neut # (Auto) Lymph # (Auto) [place] # (Auto) Eos # (Auto) Baso # (Auto) WBC Differential Differential Comment Sodium Potassium Chloride Carbon Dioxide Anion Gap BUN Creatinine Estimated GFR POC Glucose 170 H Random Glucose Calcium - Procedures s/p Irrigation debridement of abscess to left below-knee amputation with wound VAC application by Dr Tejada 02/01/18 Left BKA Stump aspiration 02/01/18 by IR Assessment and Plan - Assessment (1) SENG (acute kidney injury) Code(s): N17.9 - Acute kidney failure, unspecified Status: Acute (2) Cellulitis Code(s): L03.90 - Cellulitis, unspecified Status: Acute (3) Diabetic foot ulcer Code(s): E11.621 - Type 2 diabetes mellitus with foot ulcer; L97.509 - Non- pressure chronic ulcer of other part of unspecified foot with unspecified severity Status: Acute - Plan 58 YOWM with IDDM, HLD, depression, anxiety, and history of L BKA admitted for BKA stump cellulitis with possible abscess as well as right diabetic foot ulcer. 1. Cellulitis and possible abscess of L BKA stump - 02/01: Seen by Orthopedic logging specialist saw fluid collection along the distal BKA stump, could be infection versus inflamed bursa, asked for Interventional Radiology for aspiration and sent fluid for cell count, cultures and gram stain, left NPO for probable surgery for tomorrow. - s/p Irrigation debridement of abscess to left below-knee amputation with wound VAC application by Dr Tejada 02/01/18 Left BKA Stump aspiration 02/01/18 by IR -s/p Irrigation and debridement of left leg, secondary closure of left leg wound by Dr Tejada Maintain knee immobilizer and wound VAC. Wound VAC in place. Plan on washing out the left lower extremity Wednesday or Wednesday with final closure Follow cultures, wound cultures grows staph aureus IV antibiotics per infectious disease 2. R diabetic foot ulcer with signs of infection - Right plantar wound at the ball of the foot that has essentially not been treated or had wound care - Obtain culture and Gram stain - IV antibiotics as above - XR with no signs of osteo - Consult podiatry and wound care nurse.' s/p surgery 02/03/18 3. Diabetes mellitus with hyperglycemia - uncontrolled, follow hemoglobin A1C, pre meal 5 units of Regular Insulin, increase Detemir to 25 units daily and Medium sliding scale. 4. Acute kidney injury - Pt denies any history of CKD though likely has underlying renal insufficiency - Last creatinine on file 2015 was 1.48 - Creatinine 1.72 on admission - Hold home LALO inhibitor and metformin - Watch creatinine carefully while on vancomycin and Zosyn, if worsens may have to change abx. - IV fluids - Monitor renal function 5. Hyperlipidemia - Continue home statin 6. Anxiety - Continue home Xanax 7. Diabetic neuropathy - Continue home Cymbalta FEN: - Fluids: NS at 100 ml/hr - Electrolytes: mild hyponatremia, providing fluids; borderline elevated potassium, holding home LALO-I in light of SENG, continue to monitor - Nutrition: NPO after midnight DVT prophylaxis: SCDs, hold chemical anticoagulation should patient go to OR for I&D Code Status: Full code. Discussed Condition With: Patient, nurse, family Discharge Planning: Pending improvement and clearance by Specialists. s/p surgery 02/03/18 by podiatry Irrigation and debridement of left leg, secondary closure of left leg wound by Dr Tejada 02/07 On IV antibiotics ID, ff as well Poss DC in 1-2 days needs IV abx at DC most likely (2) Cellulitis Qualifiers: Site of cellulitis: extremity Site of cellulitis of extremity: lower extremity Laterality: left Qualified Code(s): L03.116 - Cellulitis of left lower limb (3) Diabetic foot ulcer Qualifiers: Diabetic foot ulcer location: midfoot Diabetes mellitus type: type 2 Laterality: right
[2018-02-07] MEDS ORDERED: ceFAZolin 1 GM Premix Inj 2 GM/100 ML FROZ.PIGGY IV.SIG ONE (08:59)
[2018-02-07] MEDS ORDERED: HYDROmorphone PF Inj 2 MG/ML Vial ONE (09:53)
[2018-02-07] MEDS ORDERED: Post-op Orders (for Pharmacy) OTHER STA (10:54)
--- NOTE | 2018-02-07 10:59 | P.OP ---
- Preoperative Diagnosis (1) Infection of amputation stump, left lower extremity Date of procedure: 02/07/18 Procedure: Irrigation and debridement of left leg, secondary closure of left leg wound Anesthesia: GETA Surgeon: Flaquito Lawler MD [employer] Canning Leader: MADDY Duke PA-C The surgical procedure was assisted by my physician outpatient physical therapist assistant. My P.A. presence was necessary throughout this case for the manipulation and positioning of the surgical extremity. My P.A. was assisting me throughout the duration of this procedure. The skill set of a physician outpatient physical therapist assistant was medically necessary to complete this procedure. During the surgical case the surgical lead was working at the back table and the physician outpatient physical therapist assistant was directly assisting me. Operation and Findings: Rashid returned to the operating room today for scheduled repeat irrigation and debridement of left leg. Informed consent was obtained preoperatively and operative site was marked. He was brought into the operating room. He was given IV sedation and general anesthesia. Timeout procedure was performed. Left leg was prepped with alcohol followed Hibiclens and draped in usual sterile fashion. Procedure began with irrigation debridement of the wound. The open wound was thoroughly visualized. The wound appeared to be clean. Curettes were used to debride soft tissue and bone. No purulent drainage was noted at this time. A small area of muscle and fascia were excised. Overall the wound appeared to be clean and healthy. Soft tissue and bone were now thoroughly irrigated with pulsatile lavage. Next attention was turned to wound closure. A drain was placed deep. Fascia was closed with 0 PDS, subcutaneous tissue was closed with 3-0 PDS. Skin was now closed with 3-0 nylon. A combination of retention suture and vertical mattress suture were utilized. There is minimal skin tension after completion of closure. Sterile dressings were applied. Patient was awakened and transferred to recovery room in stable condition.
[2018-02-07] MEDS ORDERED: *morphine SULFATE 10 MG/ML PERIprocedure ONLY ONE ×2 (11:22→11:29)
[2018-02-07] MEDS ORDERED: fentaNYL Citrate Inj 100 MCG/2 ML Ampul ONE (11:25)
[2018-02-07] MEDS ORDERED: *HYDROmorphone PF Inj 1 MG/ML Ampul PERIprocedural Use ONLY ONE (11:58)
[2018-02-07] MEDS: Vancomycin Inj 1,500 MG in Sodium Chlor 0.9% Inj 500 ML IV.SIG SCH (14:49)
[2018-02-07] MEDS: Senna/Docusate Sodium 8.6/50 MG Tablet PO SCH ×2 (14:51→22:20)
[2018-02-07] MEDS: ALPRAZolam 0.5 MG Tablet PO SCH ×2 (14:51→22:20)
[2018-02-07] MEDS: Collagenase Oint 30 GM Tube TOPICAL SCH (14:52)
[2018-02-07] MEDS: Sodium Chloride 0.9% 2 ML Flush BID IV.FLUSH SCH ×2 (14:52→22:23)
--- NOTE | 2018-02-07 15:02 | P.DCO ---
- Diagnosis (1) SENG (acute kidney injury) Status: Acute (2) Cellulitis Status: Acute (3) Diabetic foot ulcer Status: Acute - Physical Therapy Order: Evaluate and treat - Home Health Nursing Order: Medical education, Signs/symptoms of disease process, Diabetic education , Medication education-adverse effect, Nursing assessment with vital signs, IV medication administration - Case Management Consult Case Management Consult-Home Health: Yes - Certification I have seen patient Rashid Medina on 02/07/18. My clinical findings support the need for the requested home health care services because: Limited mobility due to disease progression, Patient has SOB I certify that my clinical findings support that this patient is homebound because: Post-op weakness, Impaired cognitive ability/safety (2) Cellulitis Qualifiers: Site of cellulitis: extremity Site of cellulitis of extremity: lower extremity Laterality: left Qualified Code(s): L03.116 - Cellulitis of left lower limb (3) Diabetic foot ulcer Qualifiers: Diabetic foot ulcer location: midfoot Diabetes mellitus type: type 2 Laterality: right
--- NOTE | 2018-02-07 17:00 | P.PNID ---
Subjective Remarks: Patient without complaints. No fever. Denies chills. Wound culture staph aureus, MSSA at both the right plantar wound and left stump. Has JAMI drain in place which has serosanguineous drainage. 58-year-old white male who has history of left [id number]-[id number] amputation. Past Medical History: PAST MEDICAL HISTORY: Diabetes mellitus, hypertension, hyperlipidemia, anxiety, depression, history of [id number] amputation on the left in 2001. Allergies/Adverse Reactions: Allergies No Known Allergies Allergy (Verified 01/31/18 15:24) Objective Vital Signs 02/06/18 20:00 02/07/18 00:00 02/07/18 08:00 Temperature 98 F 97.8 F 98.1 F Pulse Rate 69 69 71 Respiratory Rate 18 18 18 Blood Pressure 159/76 H 165/77 H 159/72 H Pulse Oximetry 94 L 96 96 02/07/18 11:20 02/07/18 11:30 02/07/18 11:45 Temperature 97.7 F Pulse Rate 94 H 85 80 Respiratory Rate 20 8 L 10 L Blood Pressure 153/71 H 139/77 141/63 H Pulse Oximetry 100 98 98 02/07/18 12:00 02/07/18 12:15 02/07/18 13:00 Temperature 97.6 F 97.5 F L Pulse Rate 77 77 75 Respiratory Rate 5 L 12 18 Blood Pressure 147/67 H 131/67 142/67 H Pulse Oximetry 95 99 94 L 02/07/18 15:54 Temperature 97.4 F L Pulse Rate 68 Respiratory Rate 18 Blood Pressure 131/61 Pulse Oximetry 92 L Intake & Output 02/06/18 02/07/18 02/07/18 18:59 06:59 18:59 Intake Total 2115 / 2115 0 / 0 700 / 700 Output Total 600 / 600 2400 / 2400 420 / 420 Balance 1515 / 1515 -2400 / -2400 280 / 280 Weight 127.3 kg Intake: IV 1615 / 1615 NS Inj 1,000 ML @ 100 mls/hr IV 1000 / 1000 .CONT .Q10H [facility] Rx#:[id number] Zosyn 4.5 GM Premix 4.5 gm In 100 / 100 100 ml @ 200 mls/hr IV.SIG Q6H [facility] Rx#:[id number] Vancomycin Inj 1,500 MG In NS 515 / 515 Inj 500 ML @ 250 mls/hr IV.SIG Q24H [facility] Rx#:[id number] Oral 500 / 500 0 / 0 100 / 100 Anesthesia Amount 600 / 600 Output: Urine 600 / 600 2400 / 2400 400 / 400 Estimated Blood Loss 20 / 20 Wound Vac Amount 0 / 0 Left Leg 0 / 0 Other: Mode Setting Left Leg Continuous Continuous Intermittent # Voids 1 # Bowel Movements 0 01/31/18 17:35 Blood - Peripheral Aerobic Blood Culture - Final Staphylococcus hominis-hominis 01/31/18 17:35 Blood - Peripheral Anaerobic Blood Culture - Final Staphylococcus coag negative 01/31/18 17:35 Blood - Peripheral Aerobic Blood Culture - Final No growth in 5 days 01/31/18 17:35 Blood - Peripheral Anaerobic Blood Culture - Final No growth in 5 days Lab - Hematology Results 02/06/18 02/07/18 04:03 06:00 WBC 4.9 4.8 RBC 3.81 L 3.91 L Hgb 11.9 L 12.2 L Hct 35.5 L 36.7 L MCV 93.3 93.8 MCH 31.1 31.2 MCHC 33.4 33.3 RDW 12.8 12.7 Plt Count 219 218 MPV 8.4 8.3 Neut % (Auto) 63.6 67.2 Lymph % (Auto) 23.0 18.9 Roberts % (Auto) 8.0 8.8 H Eos % (Auto) 4.5 H 4.3 H Baso % (Auto) 0.9 0.8 Neut # (Auto) 3.1 3.2 Lymph # (Auto) 1.1 0.9 L Roberts # (Auto) 0.4 0.4 Eos # (Auto) 0.2 0.2 Baso # (Auto) 0.0 0.0 WBC Differential . . Differential Comment Auto diff final Auto diff final Lab - Chemistry Results 02/05/18 02/05/18 02/06/18 17:51 19:57 03:28 Sodium Potassium Chloride Carbon Dioxide Anion Gap BUN Creatinine Estimated GFR POC Glucose 69 260 H 199 H Random Glucose Calcium 02/06/18 02/06/18 02/06/18 04:03 07:50 11:44 Sodium 143 Potassium 4.1 Chloride 104 Carbon Dioxide 33.0 H Anion Gap 6 BUN 10 Creatinine 1.59 H Estimated GFR 45 L POC Glucose 173 H 199 H Random Glucose 206 H Calcium 8.1 L 02/06/18 02/06/18 02/07/18 16:24 19:38 03:19 Sodium Potassium Chloride Carbon Dioxide Anion Gap BUN Creatinine Estimated GFR POC Glucose 210 H 228 H 153 H Random Glucose Calcium 02/07/18 02/07/18 02/07/18 04:39 07:23 11:33 Sodium 141 Potassium 4.4 Chloride 105 Carbon Dioxide 30.5 Anion Gap 6 BUN 9 Creatinine 1.35 H Estimated GFR 54 L POC Glucose 170 H 220 H Random Glucose 173 H Calcium 8.0 L Imaging: ITS Impressions Foot X-Ray 01/31/18 00:00 CONCLUSION: Chronic change as described above. Knee X-Ray 01/31/18 15:23 CONCLUSION: Significant soft tissue swelling surrounding the tibial and fibular stump following below-knee amputation noted No evidence of destructive bone changes. Knee CT 01/31/18 16:25 CONCLUSION: 1. Status post uruwi-nzu-qfza amputation. 2. Nonspecific fluid collection seen inferior to the tibia. This fluid collection abuts the inferior aspect of the remaining aspect of the tibia and extends anteriorly at the distal tibia. This could be a bursa versus other fluid collection including hematoma, seroma or abscess in the correct clinical situation. Aspiration 02/01/18 00:00 CONCLUSION: 1. Ultrasound-guided aspiration of BKA stump fluid collection yielding 10 cc of purulent fluid. Foot MRI 02/01/18 00:00 CONCLUSION: 1. Wound along the plantar surface of the forefoot appears fairly superficial without evidence of deep involvement or underlying abscess. 2. No evidence of osteomyelitis. Extremity Arterial Study 02/02/18 00:00 CONCLUSION: Normal ankle-brachial index at the right lower extremity. The ankle brachial index can be compromised by heavily calcified vessels in diabetics. Physical Exam: PHYSICAL EXAM: GENERAL: no acute distress. Patient is awake and alert and oriented. HEENT: Head is atraumatic. Extraocular movements are grossly intact. Pupils reactive to light. No icterus. Oropharynx moist mucosa without lesions. NECK: Supple, no adenopathy. LUNGS: Clear to auscultation. HEART: Regular S1, S2. EXTREMITIES: The left stump has a wound VAC in place. The wound is wrapped in surgical dressing. JAMI drain is serous sanguinous drainage. SKIN: No rash. NEUROLOGIC: Nonfocal. PSYCHIATRIC: calm, pleasant and cooperative. Assessment and Plan - Plan IMPRESSION: Abscess of the left leg stump and left below knee amputation stump wound infection. MSSA. Wound infection of the left foot. MSSA. Wound culture with coag negative staph likely contamination. RECOMMENDATIONS: 1. Discontinue piperacillin/tazobactam. 2. Stop vancomycin. 3. Initiate IV ceftriaxone and treat for 4 weeks until March 09, 2018. 4. PICC line will be ordered for antibiotics. Case management to make arrangements for antibiotic. Okay to discharge from ID standpoint once arrangements are made and patient is cleared by orthopedics.
--- NOTE | 2018-02-07 17:02 | P.DCO ---
Post Hospital Infusion Therapy - Infusion Therapy Location of Infusion Therapy: Home Health Care IV Infusion Order - Patient Information Patient Weight: 127.3 kg - Diagnosis (1) Cellulitis Code(s): L03.90 - Cellulitis, unspecified (2) Diabetic foot ulcer Code(s): E11.621 - Type 2 diabetes mellitus with foot ulcer; L97.509 - Non- pressure chronic ulcer of other part of unspecified foot with unspecified severity (3) Infection of amputation stump, left lower extremity Code(s): T87.44 - Infection of amputation stump, left lower extremity - Administer Medication Ceftriaxone Dose: 2 grams IV Directions: q 24 hours Stop Treatment: 03/09/18 - Additional Information Venous Access: PICC Line Additional Instructions: [x] Peripheral flush and dressing changes per protocol [x] Implanted port and central box liner: * Implanted port: 10 ml Normal Saline followed by 5 ml Heparin 100 units/ml Heparin flush after each use and monthly to maintain. [] May leave port accessed during therapy. [] May leave peripheral site accessed for duration of therapy. [x] If patient has SOB or respiratory distress, check oxygen saturation. If less than 90% or clinical signs of respiratory distress, administer oxygen at 2 L/min. via nasal cannula and notify physician. [x] Anaphylaxis/Reaction orders: * Stop infusion. * Keep IV line open with saline flush. * Notify physician. * Monitor vital signs every 15 minutes until symptoms resolve. * Check Oxygen saturation; Oxygen at 2 L/min. via nasal cannula if less than 90% or clinical signs of respiratory distress. * Administer diphenhydramine (Benadryl) 25 mg IV STAT, (unless patient has received as pre-med). May repeat once, if necessary. * Solu-Cortef 250 mg IVP over 30-60 seconds, use 100 mg vials for each dissolution. * Epinephrine (1mg/1 ml) 0.3 mg subcutaneously or IVP now with any signs of respiratory distress. * Check with physician for new additional pre-med orders if patient is re- challenged or re-treated. [x] May remove PICC line when treatment complete, after confirming with Physician. [x] If the patient is admitted to the hospital, the ED, or transferred via [facility] , complete transfer form including medication reconciliation order sheet. Weekly Labs: BMP, CBC w/diff - Case Management Consult Case Management Consult-IVF: Yes - Patient Information Allergies No Known Allergies Allergy (Verified 01/31/18 15:24) (1) Cellulitis Qualifiers: Site of cellulitis: extremity Site of cellulitis of extremity: lower extremity Laterality: left Qualified Code(s): L03.116 - Cellulitis of left lower limb (2) Diabetic foot ulcer Qualifiers: Diabetic foot ulcer location: midfoot Diabetes mellitus type: type 2 Laterality: right
[2018-02-07] MEDS: Insulin Detemir Inj 1,000 UNIT/10 ML Vial SQ SCH (22:20)
[2018-02-08] MEDS: Insulin NovoLOG Aspart Correctional Sugar Inj SQ SCH ×8 (03:33→22:04)
[2018-02-08] MEDS: Sod Chloride 0.9% Inj 1,000 ML IV.CONT SCH ×3 (05:45→18:12)
[2018-02-08 07:22] LABS: Baso % (Auto) 0.7 % (0.0-2.0); Eos # (Auto) 0.2 th/mm3 (0.0-0.4); Eos % (Auto) 4.8 % (0.0-4.0); Hematocrit 33.6 % (39.0-51.0); Hemoglobin 11.4 gm/dL (13.0-17.0); Lymph # (Auto) 1.2 th/mm3 (1.0-4.8); Lymph % (Auto) 24.2 % (9.0-44.0); Mean Corpuscular HGB Conc 33.9 % (32.0-36.0); Mean Corpuscular Hemoglobin 31.3 pg (27.0-34.0); Mean Corpuscular Volume 92.4 fL (80.0-100.0); Mean Platelet Volume 8.3 fL (7.0-11.0); Mono # (Auto) 0.6 th/mm3 (0.0-0.9); Mono % (Auto) 12.4 % (0.0-8.0); Neut # (Auto) 2.8 th/mm3 (1.8-7.7); Neut % (Auto) 57.9 % (16.0-70.0); Platelet Count 212 th/mm3 (150-450); Red Blood Count 3.63 mil/mm3 (4.50-5.90); Red Cell Distribution Width 12.8 % (11.6-17.2); White Blood Count 4.8 th/mm3 (4.0-11.0)
[2018-02-08 07:39] LABS: Calcium 8.4 mg/dL (8.5-10.1); Carbon Dioxide 34.2 meq/L (21.0-32.0); Potassium 4.3 meq/L (3.5-5.1)
[2018-02-08] MEDS: Senna/Docusate Sodium 8.6/50 MG Tablet PO SCH ×2 (08:31→22:07)
[2018-02-08] MEDS: ALPRAZolam 0.5 MG Tablet PO SCH ×2 (08:32→22:05)
--- NOTE | 2018-02-08 09:14 | P.PNOP ---
Subjective Interval history: POD 1 s/p I&D and wound closure left BKA doing well. pain controlled. no new complaints. Physical Exam Vital signs: Vital Signs 02/07/18 11:20 02/07/18 11:30 02/07/18 11:45 Temperature 97.7 F Pulse Rate 94 H 85 80 Respiratory Rate 20 8 L 10 L Blood Pressure 153/71 H 139/77 141/63 H Pulse Oximetry 100 98 98 02/07/18 12:00 02/07/18 12:15 02/07/18 13:00 Temperature 97.6 F 97.5 F L Pulse Rate 77 77 75 Respiratory Rate 5 L 12 18 Blood Pressure 147/67 H 131/67 142/67 H Pulse Oximetry 95 99 94 L 02/07/18 15:54 02/07/18 20:00 02/08/18 00:00 Temperature 97.4 F L 97.5 F L 97.6 F Pulse Rate 68 67 65 Respiratory Rate 18 16 16 Blood Pressure 131/61 110/53 L 114/56 L Pulse Oximetry 92 L 95 95 02/08/18 08:00 Temperature 97.9 F Pulse Rate 65 Respiratory Rate 16 Blood Pressure 144/62 H Pulse Oximetry 95 Intake & Output 02/07/18 02/08/18 02/08/18 18:59 06:59 18:59 Intake Total 1600 / 1600 100 / 100 Output Total 520 / 520 1410 / 1410 Balance 1080 / 1080 -1310 / -1310 Weight 127.3 kg 127.4 kg Intake: IV 400 / 400 100 / 100 NS Inj 1,000 ML @ 100 mls/hr IV 400 / 400 .CONT .Q10H [facility] Rx#:[id number] Rocephin Inj 2,000 MG In NS Inj 100 / 100 100 ML @ 200 mls/hr IV.SIG Q24H [facility] Rx#:[id number] Oral 600 / 600 Anesthesia Amount 600 / 600 Output: Urine 500 / 500 1400 / 1400 Estimated Blood Loss 20 / 20 Wound Drainage Left Knee JAMI Drain Other: Mode Setting Left Leg Intermittent # Voids 1 Narrative: LLE: dressings clean and dry. intact. +CKS Results - Labs CBC & Chem 7: 02/08/18 05:26 02/08/18 05:26 Laboratory Results - last 24 hr 02/07/18 02/07/18 02/07/18 11:33 18:00 21:18 WBC RBC Hgb Hct MCV MCH MCHC RDW Plt Count MPV Neut % (Auto) Lymph % (Auto) [place] % (Auto) Eos % (Auto) Baso % (Auto) Neut # (Auto) Lymph # (Auto) [place] # (Auto) Eos # (Auto) Baso # (Auto) WBC Differential Differential Comment Sodium Potassium Chloride Carbon Dioxide Anion Gap BUN Creatinine Estimated GFR POC Glucose 220 H 211 H 183 H Random Glucose Calcium 02/08/18 02/08/18 02/08/18 03:31 05:26 05:26 WBC 4.8 RBC 3.63 L Hgb 11.4 L Hct 33.6 L MCV 92.4 MCH 31.3 MCHC 33.9 RDW 12.8 Plt Count 212 MPV 8.3 Neut % (Auto) 57.9 Lymph % (Auto) 24.2 Dodge % (Auto) 12.4 H Eos % (Auto) 4.8 H Baso % (Auto) 0.7 Neut # (Auto) 2.8 Lymph # (Auto) 1.2 Dodge # (Auto) 0.6 Eos # (Auto) 0.2 Baso # (Auto) 0.0 WBC Differential . Differential Comment Auto diff final Sodium 140 Potassium 4.3 Chloride 103 Carbon Dioxide 34.2 H Anion Gap 3 L BUN 9 Creatinine 1.28 Estimated GFR 58 L POC Glucose 156 H Random Glucose 151 H Calcium 8.4 L 02/08/18 07:29 WBC RBC Hgb Hct MCV MCH MCHC RDW Plt Count MPV Neut % (Auto) Lymph % (Auto) Dodge % (Auto) Eos % (Auto) Baso % (Auto) Neut # (Auto) Lymph # (Auto) Dodge # (Auto) Eos # (Auto) Baso # (Auto) WBC Differential Differential Comment Sodium Potassium Chloride Carbon Dioxide Anion Gap BUN Creatinine Estimated GFR POC Glucose 147 H Random Glucose Calcium - Procedures s/p Irrigation debridement of abscess to left below-knee amputation with wound VAC application by Dr Tejada 02/01/18 Left BKA Stump aspiration 02/01/18 by IR Assessment and Plan - Assessment and Plan Diagnosis: Abscess left BKA. SURGERY: Irrigation debridement with wound closure left BKA - POD 1 PLAN: NWB maintain dressing/knee brace/drain will plan for first dressing change tomorrow with removal of drain by ortho team IV Abx will plan for DC home once dressings changed tomorrow and IV Abx arranged by Infectious Dz
[2018-02-08] MEDS: Collagenase Oint 30 GM Tube TOPICAL SCH (09:49)
[2018-02-08] MEDS: Sodium Chloride 0.9% 2 ML Flush BID IV.FLUSH SCH ×2 (14:08→22:06)
--- NOTE | 2018-02-08 19:05 | P.PN ---
Subjective Interval history: Patient was seen earlier today. He is in the chair family at bedside very supportive. He has more pain at the surgical site however improved a little bit since yesterday after the surgery. Drain in place. No fever or chills overnight. Appetite is improving and he is eating better. Physical Exam Vital signs: Vital Signs 02/07/18 20:00 02/08/18 00:00 02/08/18 08:00 Temperature 97.5 F L 97.6 F 97.9 F Pulse Rate 67 65 65 Respiratory Rate 16 16 16 Blood Pressure 110/53 L 114/56 L 144/62 H Pulse Oximetry 95 95 95 02/08/18 11:35 02/08/18 16:00 Temperature 98.5 F 97.3 F L Pulse Rate 72 70 Respiratory Rate 18 18 Blood Pressure 134/75 138/65 Pulse Oximetry 96 94 L Intake & Output 02/08/18 02/08/18 02/09/18 06:59 18:59 06:59 Intake Total 100 / 100 1100 / 1100 Output Total 1410 / 1410 Balance -1310 / -1310 1100 / 1100 Weight 127.4 kg Intake: IV 100 / 100 1100 / 1100 NS Inj 1,000 ML @ 100 mls/hr IV 1000 / 1000 .CONT .Q10H [facility] Rx#:[id number] Rocephin Inj 2,000 MG In NS Inj 100 / 100 100 / 100 100 ML @ 200 mls/hr IV.SIG Q24H [facility] Rx#:[id number] Output: Urine 1400 / 1400 Wound Drainage 10 Left Knee JAMI Drain Results - Labs CBC & Chem 7: 02/08/18 05:26 02/08/18 05:26 Laboratory Results - last 24 hr 02/07/18 02/08/18 02/08/18 21:18 03:31 05:26 WBC RBC Hgb Hct MCV MCH MCHC RDW Plt Count MPV Neut % (Auto) Lymph % (Auto) [place] % (Auto) Eos % (Auto) Baso % (Auto) Neut # (Auto) Lymph # (Auto) [place] # (Auto) Eos # (Auto) Baso # (Auto) WBC Differential Differential Comment Sodium 140 Potassium 4.3 Chloride 103 Carbon Dioxide 34.2 H Anion Gap 3 L BUN 9 Creatinine 1.28 Estimated GFR 58 L POC Glucose 183 H 156 H Random Glucose 151 H Calcium 8.4 L 11/27/18 11/27/18 11/27/18 05:26 07:29 11:16 WBC 4.8 RBC 3.63 L Hgb 11.4 L Hct 33.6 L MCV 92.4 MCH 31.3 MCHC 33.9 RDW 12.8 Plt Count 212 MPV 8.3 Neut % (Auto) 57.9 Lymph % (Auto) 24.2 [place] % (Auto) 12.4 H Eos % (Auto) 4.8 H Baso % (Auto) 0.7 Neut # (Auto) 2.8 Lymph # (Auto) 1.2 [place] # (Auto) 0.6 Eos # (Auto) 0.2 Baso # (Auto) 0.0 WBC Differential . Differential Comment Auto diff final Sodium Potassium Chloride Carbon Dioxide Anion Gap BUN Creatinine Estimated GFR POC Glucose 147 H 190 H Random Glucose Calcium 02/08/18 17:51 WBC RBC Hgb Hct MCV MCH MCHC RDW Plt Count MPV Neut % (Auto) Lymph % (Auto) [place] % (Auto) Eos % (Auto) Baso % (Auto) Neut # (Auto) Lymph # (Auto) [place] # (Auto) Eos # (Auto) Baso # (Auto) WBC Differential Differential Comment Sodium Potassium Chloride Carbon Dioxide Anion Gap BUN Creatinine Estimated GFR POC Glucose 172 H Random Glucose Calcium - Procedures s/p Irrigation debridement of abscess to left below-knee amputation with wound VAC application by Dr Tejada 02/01/18 Left BKA Stump aspiration 02/01/18 by IR Assessment and Plan - Assessment (1) SENG (acute kidney injury) Code(s): N17.9 - Acute kidney failure, unspecified Status: Acute (2) Cellulitis Code(s): L03.90 - Cellulitis, unspecified Status: Acute (3) Diabetic foot ulcer Code(s): E11.621 - Type 2 diabetes mellitus with foot ulcer; L97.509 - Non- pressure chronic ulcer of other part of unspecified foot with unspecified severity Status: Acute - Plan 58 YOWM with IDDM, HLD, depression, anxiety, and history of L BKA admitted for BKA stump cellulitis with possible abscess as well as right diabetic foot ulcer. 1. Cellulitis and possible abscess of L BKA stump - 02/01: Seen by Orthopedic discharge specialist saw fluid collection along the distal BKA stump, could be infection versus inflamed bursa, asked for Interventional Radiology for aspiration and sent fluid for cell count, cultures and gram stain, left NPO for probable surgery for tomorrow. - s/p Irrigation debridement of abscess to left below-knee amputation with wound VAC application by Dr Tejada 02/01/18 Left BKA Stump aspiration 02/01/18 by IR -s/p Irrigation and debridement of left leg, secondary closure of left leg wound by Dr Tejada Maintain knee immobilizer and wound VAC. Wound VAC in place. Plan on washing out the left lower extremity Wednesday or Wednesday with final closure Follow cultures, wound cultures grows staph aureus IV antibiotics per infectious disease 2. R diabetic foot ulcer with signs of infection - Right plantar wound at the ball of the foot that has essentially not been treated or had wound care - Obtain culture and Gram stain - IV antibiotics as above - XR with no signs of osteo - Consult podiatry and wound care nurse.' s/p surgery 02/03/18 3. Diabetes mellitus with hyperglycemia - uncontrolled, follow hemoglobin A1C, pre meal 5 units of Regular Insulin, increase Detemir to 25 units daily and Medium sliding scale. 4. Acute kidney injury - Pt denies any history of CKD though likely has underlying renal insufficiency - Last creatinine on file 2015 was 1.48 - Creatinine 1.72 on admission - Hold home LALO inhibitor and metformin - Watch creatinine carefully while on vancomycin and Zosyn, if worsens may have to change abx. - IV fluids - Monitor renal function 5. Hyperlipidemia - Continue home statin 6. Anxiety - Continue home Xanax 7. Diabetic neuropathy - Continue home Cymbalta FEN: - Fluids: NS at 100 ml/hr - Electrolytes: mild hyponatremia, providing fluids; borderline elevated potassium, holding home LALO-I in light of SENG, continue to monitor - Nutrition: NPO after midnight DVT prophylaxis: SCDs, hold chemical anticoagulation should patient go to OR for I&D Code Status: Full code. Discussed Condition With: Patient, nurse, family Discharge Planning: Pending improvement and clearance by Specialists. s/p surgery 02/03/18 by podiatry Irrigation and debridement of left leg, secondary closure of left leg wound by Dr Tejada 02/07 On IV antibiotics ID, ff as well Poss DC in 1-2 days needs IV abx at DC most likely Face to face done (2) Cellulitis Qualifiers: Site of cellulitis: extremity Site of cellulitis of extremity: lower extremity Laterality: left Qualified Code(s): L03.116 - Cellulitis of left lower limb (3) Diabetic foot ulcer Qualifiers: Diabetic foot ulcer location: midfoot Diabetes mellitus type: type 2 Laterality: right
[2018-02-08] MEDS: Insulin Detemir Inj 1,000 UNIT/10 ML Vial SQ SCH (22:05)
[2018-02-09] MEDS: Insulin NovoLOG Aspart Correctional Sugar Inj SQ SCH ×8 (03:39→21:46)
[2018-02-09 05:06] LABS: Eos # (Auto) 0.2 th/mm3 (0.0-0.4); Eos % (Auto) 4.8 % (0.0-4.0); Hematocrit 34.9 % (39.0-51.0); Hemoglobin 11.7 gm/dL (13.0-17.0); Lymph % (Auto) 21.7 % (9.0-44.0); Mean Corpuscular HGB Conc 33.5 % (32.0-36.0); Mean Corpuscular Volume 92.3 fL (80.0-100.0); Mean Platelet Volume 8.3 fL (7.0-11.0); Mono # (Auto) 0.4 th/mm3 (0.0-0.9); Mono % (Auto) 8.3 % (0.0-8.0); Neut # (Auto) 3.1 th/mm3 (1.8-7.7); Neut % (Auto) 64.2 % (16.0-70.0); Platelet Count 239 th/mm3 (150-450); Red Blood Count 3.79 mil/mm3 (4.50-5.90); Red Cell Distribution Width 12.7 % (11.6-17.2); White Blood Count 4.8 th/mm3 (4.0-11.0)
[2018-02-09 05:25] LABS: Calcium 8.3 mg/dL (8.5-10.1); Carbon Dioxide 30.9 meq/L (21.0-32.0); Potassium 4.5 meq/L (3.5-5.1)
[2018-02-09] MEDS: Sod Chloride 0.9% Inj 1,000 ML IV.CONT SCH ×2 (05:25→21:43)
[2018-02-09] MEDS: ALPRAZolam 0.5 MG Tablet PO SCH ×2 (09:08→21:44)
--- NOTE | 2018-02-09 11:20 | P.PNOP ---
Subjective Interval history: POD 2 s/p I&D with wound closure left BKA doing well. pain controlled. no new complaints. Physical Exam Vital signs: Vital Signs 02/08/18 11:35 02/08/18 16:00 02/08/18 20:00 Temperature 98.5 F 97.3 F L 97.7 F Pulse Rate 72 70 76 Respiratory Rate 18 18 19 Blood Pressure 134/75 138/65 129/74 Pulse Oximetry 96 94 L 94 L 02/09/18 00:00 02/09/18 08:00 Temperature 97.3 F L 97.4 F L Pulse Rate 76 69 Respiratory Rate 19 17 Blood Pressure 120/60 140/83 Pulse Oximetry 94 L 95 Intake & Output 02/08/18 02/09/18 02/09/18 18:59 06:59 18:59 Intake Total 1100 / 1100 1800 / 1800 800 / 800 Output Total 5 / 5 Balance 1095 / 1095 1800 / 1800 800 / 800 Weight 126.8 kg Intake: IV 1100 / 1100 1000 / 1000 800 / 800 NS Inj 1,000 ML @ 100 mls/hr IV 1000 / 1000 1000 / 1000 800 / 800 .CONT .Q10H [facility] Rx#:[id number] Rocephin Inj 2,000 MG In NS Inj 100 / 100 100 ML @ 200 mls/hr IV.SIG Q24H [facility] Rx#:[id number] Oral 800 / 800 Output: Wound Drainage 5 / 5 Left Knee JAMI Drain 5 / 5 Other: # Voids 500 Narrative: LLE: incision healing well. no drainage or erythema. +drain Results - Labs CBC & Chem 7: 02/09/18 04:11 02/09/18 04:11 Laboratory Results - last 24 hr 02/08/18 02/08/18 02/09/18 17:51 21:56 03:35 WBC RBC Hgb Hct MCV MCH MCHC RDW Plt Count MPV Neut % (Auto) Lymph % (Auto) [place] % (Auto) Eos % (Auto) Baso % (Auto) Neut # (Auto) Lymph # (Auto) [place] # (Auto) Eos # (Auto) Baso # (Auto) WBC Differential Differential Comment Sodium Potassium Chloride Carbon Dioxide Anion Gap BUN Creatinine Estimated GFR POC Glucose 172 H 255 H 201 H Random Glucose Calcium 02/09/18 02/09/18 02/09/18 04:11 04:11 07:40 WBC 4.8 RBC 3.79 L Hgb 11.7 L Hct 34.9 L MCV 92.3 MCH 31.0 MCHC 33.5 RDW 12.7 Plt Count 239 MPV 8.3 Neut % (Auto) 64.2 Lymph % (Auto) 21.7 [place] % (Auto) 8.3 H Eos % (Auto) 4.8 H Baso % (Auto) 1.0 Neut # (Auto) 3.1 Lymph # (Auto) 1.0 [place] # (Auto) 0.4 Eos # (Auto) 0.2 Baso # (Auto) 0.0 WBC Differential . Differential Comment Auto diff final Sodium 138 Potassium 4.5 Chloride 103 Carbon Dioxide 30.9 Anion Gap 4 L BUN 12 Creatinine 1.22 Estimated GFR 61 L POC Glucose 147 H Random Glucose 217 H Calcium 8.3 L - Procedures s/p Irrigation debridement of abscess to left below-knee amputation with wound VAC application by Dr Tejada 02/01/18 Left BKA Stump aspiration 02/01/18 by IR Assessment and Plan - Assessment and Plan Diagnosis: Abscess left BKA. SURGERY: Irrigation debridement with wound closure left BKA - POD 2 PLAN: NWB drain removed at bedside dressing changed at bedside. begin daily dressings with xerforom/4x4/serenity. ok to use primapore/coverderm if stump can tolerate IV Abx will plan for DC home once dressings changed tomorrow and IV Abx arranged by Infectious Dz ortho cleared for discharge f/u alyson Tejada or MYLES in 2 weeks
--- NOTE | 2018-02-09 11:21 | P.DCO ---
- Physical Therapy Physical Therapy: Safety evaluation Left Lower Extremity Weight Bearing: Non-weight bearing, No strengthening, No quad sets Left Lower Extremity Range of Motion: No ROM - Nursing Dressing changes: Daily dressing change, 4x4s, Coverderm/Primapore - Certification Need for Home Health services: I have seen patient Rashid Medina on 02/09/18. My clinical findings support the need for the requested home health care services because: Need for Home Health Services: Limited mobility due to disease progression Homebound Certification: I certify that my clinical findings support that this patient is homebound because: Homebound Certification: Post-op weakness
[2018-02-09] MEDS: Sodium Chloride 0.9% 2 ML Flush BID IV.FLUSH SCH ×2 (11:31→21:43)
[2018-02-09] MEDS: Senna/Docusate Sodium 8.6/50 MG Tablet PO SCH ×2 (11:31→21:44)
[2018-02-09] MEDS: Collagenase Oint 30 GM Tube TOPICAL SCH (11:32)
--- NOTE | 2018-02-09 13:10 | P.PNIM ---
Subjective Interval history: Patient does not have any specific complaints today. He says he is looking forward to being discharged tomorrow. Physical Exam Vital signs: Vital Signs 02/08/18 16:00 02/08/18 20:00 02/09/18 00:00 Temperature 97.3 F L 97.7 F 97.3 F L Pulse Rate 70 76 76 Respiratory Rate 18 19 19 Blood Pressure 138/65 129/74 120/60 Pulse Oximetry 94 L 94 L 94 L 02/09/18 08:00 Temperature 97.4 F L Pulse Rate 69 Respiratory Rate 17 Blood Pressure 140/83 Pulse Oximetry 95 Intake & Output 02/08/18 02/09/18 02/09/18 18:59 06:59 18:59 Intake Total 1100 / 1100 1800 / 1800 800 / 800 Output Total 5 / 5 Balance 1095 / 1095 1800 / 1800 800 / 800 Weight 126.8 kg Intake: IV 1100 / 1100 1000 / 1000 800 / 800 NS Inj 1,000 ML @ 100 mls/hr IV 1000 / 1000 1000 / 1000 800 / 800 .CONT .Q10H [facility] Rx#:[id number] Rocephin Inj 2,000 MG In NS Inj 100 / 100 100 ML @ 200 mls/hr IV.SIG Q24H [facility] Rx#:[id number] Oral 800 / 800 Output: Wound Drainage 5 / 5 Left Knee JAMI Drain 5 / 5 Other: # Voids 500 Narrative: General patient in no acute distress HEENT extraocular movements are intact, clear oropharyngeal mucosa, no JVD Cardiovascular S1-S2 audible, RRR, no murmurs rubs or gallops Respiratory clear to auscultation bilaterally Abdomen soft, nontender, nondistended, normal bowel sounds Extremities right foot in bandage, no active drainage noted. Left BKA currently in bandage. No significant soak through as of now. Neuro no neurological deficits. Results - Labs CBC & Chem 7: 02/09/18 04:11 02/09/18 04:11 Laboratory Results - last 24 hr 02/08/18 02/08/18 02/09/18 17:51 21:56 03:35 WBC RBC Hgb Hct MCV MCH MCHC RDW Plt Count MPV Neut % (Auto) Lymph % (Auto) [place] % (Auto) Eos % (Auto) Baso % (Auto) Neut # (Auto) Lymph # (Auto) [place] # (Auto) Eos # (Auto) Baso # (Auto) WBC Differential Differential Comment Sodium Potassium Chloride Carbon Dioxide Anion Gap BUN Creatinine Estimated GFR POC Glucose 172 H 255 H 201 H Random Glucose Calcium 02/09/18 02/09/18 02/09/18 04:11 04:11 07:40 WBC 4.8 RBC 3.79 L Hgb 11.7 L Hct 34.9 L MCV 92.3 MCH 31.0 MCHC 33.5 RDW 12.7 Plt Count 239 MPV 8.3 Neut % (Auto) 64.2 Lymph % (Auto) 21.7 [place] % (Auto) 8.3 H Eos % (Auto) 4.8 H Baso % (Auto) 1.0 Neut # (Auto) 3.1 Lymph # (Auto) 1.0 [place] # (Auto) 0.4 Eos # (Auto) 0.2 Baso # (Auto) 0.0 WBC Differential . Differential Comment Auto diff final Sodium 138 Potassium 4.5 Chloride 103 Carbon Dioxide 30.9 Anion Gap 4 L BUN 12 Creatinine 1.22 Estimated GFR 61 L POC Glucose 147 H Random Glucose 217 H Calcium 8.3 L 02/09/18 12:17 WBC RBC Hgb Hct MCV MCH MCHC RDW Plt Count MPV Neut % (Auto) Lymph % (Auto) [place] % (Auto) Eos % (Auto) Baso % (Auto) Neut # (Auto) Lymph # (Auto) [place] # (Auto) Eos # (Auto) Baso # (Auto) WBC Differential Differential Comment Sodium Potassium Chloride Carbon Dioxide Anion Gap BUN Creatinine Estimated GFR POC Glucose 168 H Random Glucose Calcium - Procedures s/p Irrigation debridement of abscess to left below-knee amputation with wound VAC application by Dr Tejada 02/01/18 Left BKA Stump aspiration 02/01/18 by IR Assessment and Plan - Assessment (1) SENG (acute kidney injury) Code(s): N17.9 - Acute kidney failure, unspecified Status: Acute (2) Cellulitis Code(s): L03.90 - Cellulitis, unspecified Status: Acute (3) Diabetic foot ulcer Code(s): E11.621 - Type 2 diabetes mellitus with foot ulcer; L97.509 - Non- pressure chronic ulcer of other part of unspecified foot with unspecified severity Status: Acute - Plan This patient is a 58-year-old male with a diagnosis of insulin dependent diabetes, dyslipidemia, depression, anxiety, history of left BKA who was admitted for left stump cellulitis with abscess status post incision and drainage as well as right diabetic foot ulcer. 1. Cellulitis with abscess of left BKA stump 2. Right diabetic foot ulcer Patient was seen by the orthopedic service on 02/01/2018. The patient is status post debridement of abscess to the left BKA stump and currently has a wound VAC in place. Cultures growing staph aureus from the right foot ulcer and left stump. Continue IV Rocephin for 4 weeks as per infectious disease recommendations. Patient will have a PICC line or midline placed and the patient will need IV antibiotics for 4 weeks. Will discuss case with case management today and prepare patient for discharge tomorrow after dressing changes Infectious disease following. 3. Insulin dependent diabetes mellitus Blood sugars running from 140s-240. We will continue current diabetes mellitus medication regimen If the patient continues to run above 200s we will adjust the medication regimen. 4. Acute kidney injury likely prerenal Serum creatinine continues to downtrending is currently 1.2, peaked at 1.7 on admission. Avoid nephrotoxic agents. Follow-up a.m. labs. (2) Cellulitis Qualifiers: Site of cellulitis: extremity Site of cellulitis of extremity: lower extremity Laterality: left Qualified Code(s): L03.116 - Cellulitis of left lower limb (3) Diabetic foot ulcer Qualifiers: Diabetic foot ulcer location: midfoot Diabetes mellitus type: type 2 Laterality: right
[2018-02-09] MEDS: Insulin Detemir Inj 1,000 UNIT/10 ML Vial SQ SCH (21:45)
[2018-02-10] MEDS: Insulin NovoLOG Aspart Correctional Sugar Inj SQ SCH ×7 (04:25→16:14)
[2018-02-10 06:08] LABS: Baso % (Auto) 0.8 % (0.0-2.0); Eos # (Auto) 0.2 th/mm3 (0.0-0.4); Eos % (Auto) 5.1 % (0.0-4.0); Hematocrit 35.6 % (39.0-51.0); Hemoglobin 11.8 gm/dL (13.0-17.0); Lymph # (Auto) 1.1 th/mm3 (1.0-4.8); Lymph % (Auto) 22.1 % (9.0-44.0); Mean Corpuscular HGB Conc 33.1 % (32.0-36.0); Mean Corpuscular Hemoglobin 30.9 pg (27.0-34.0); Mean Corpuscular Volume 93.5 fL (80.0-100.0); Mean Platelet Volume 8.2 fL (7.0-11.0); Mono # (Auto) 0.5 th/mm3 (0.0-0.9); Mono % (Auto) 9.5 % (0.0-8.0); Neut % (Auto) 62.5 % (16.0-70.0); Platelet Count 245 th/mm3 (150-450); Red Cell Distribution Width 13.3 % (11.6-17.2); White Blood Count 4.9 th/mm3 (4.0-11.0)
[2018-02-10 06:34] LABS: Calcium 8.1 mg/dL (8.5-10.1); Carbon Dioxide 28.3 meq/L (21.0-32.0); Potassium 4.1 meq/L (3.5-5.1)
[2018-02-10] MEDS: Sod Chloride 0.9% Inj 1,000 ML IV.CONT SCH ×3 (08:07→17:49)
[2018-02-10] MEDS: ALPRAZolam 0.5 MG Tablet PO SCH (08:10)
[2018-02-10 08:57] VITALS: RESP 17
[2018-02-10] MEDS: Sodium Chloride 0.9% 2 ML Flush BID IV.FLUSH SCH (09:12)
[2018-02-10] MEDS: Senna/Docusate Sodium 8.6/50 MG Tablet PO SCH (09:13)
[2018-02-10] MEDS: Collagenase Oint 30 GM Tube TOPICAL SCH (09:13)
--- NOTE | 2018-02-10 15:01 | P.DS ---
Date of admission: 01/31/18 18:37 Primary care physician: UNKNOWN Brief History from admission: 58 year old male with insulin-dependent DM, left BKA, neuropathy, HTN , HLD, anxiety, and depression presenting to the ER with pain in his left BKA stump x 2 weeks. He reports he started having some intermittent pain about two weeks ago that has worsened in the past week to the point where he cannot bear any weight on his prosthesis. He also has noticed some erythema around the stump that he says is new. He denies fever, chills, abdominal pain, nausea, vomiting, diarrhea, chest pain, or shortness of breath. When asked about other wounds or signs of infection he endorses a wound on the plantar aspect of his right foot that he states has been present at least 3 months. He doesn't follow with podiatry and his insurance recently dropped his PCP so he hasn't had any care for the wound except for some "salve" that was given to him by a physician early on in the wound. He does not get wound care. His mother, whom he lives with, does his "dressing changes" but she admits it hasn't been changed in at least five days. When I removed his sock there is an instant foul odor. He states the wound doesn't really drain. He denies any other issues. He denies any history of kidney disease. DS: Diagnosis - Discharge Diagnosis (1) SENG (acute kidney injury) Status: Acute (2) Cellulitis Status: Acute (3) Diabetic foot ulcer Status: Acute DS: Summary Hospital Course: This patient is a 58-year-old male with a diagnosis of insulin dependent diabetes, dyslipidemia, depression, anxiety, history of left BKA who was admitted for left stump cellulitis with abscess status post incision and drainage as well as right diabetic foot ulcer. 1. Cellulitis with abscess of left BKA stump 2. Right diabetic foot ulcer Patient was seen by the orthopedic service on 02/01/2018. The patient is status post debridement of abscess to the left BKA stump and closure. Cultures growing staph aureus from the right foot ulcer and left stump. He has been on IV antibiotics since admission. Continue IV Rocephin for 4 weeks as per infectious disease recommendations until March 09, 2018. Patient has a PICC line which was placed for the IV antibiotics. Patient will be discharged home with home health. Case was discussed with case management and the patient has antibiotics set up for the next 4 weeks. Patient can follow-up with Dr. Tejada from Ortho in 2 weeks. 3. Insulin dependent diabetes mellitus Patient will be continued on his home medications for diabetes. 4. Acute kidney injury likely prerenal Serum creatinine continues to downtrending is currently 1.2, peaked at 1.7 on admission. 5. Hypertension Continue home medications for hypertension. - Time Spent with Patient Total time spent providing and/or coordinating discharge services: Greater than 30 minutes - Quality: VTE Deep Vein Thrombosis/Pulmonary Embolism Present on Admission: No Exam Vital signs: Vital Signs 02/09/18 16:00 02/09/18 20:00 02/09/18 23:59 Temperature 97.9 F 98.1 F 98.2 F Pulse Rate 75 79 82 Respiratory Rate 18 18 19 Blood Pressure 114/55 L 132/65 129/63 Pulse Oximetry 96 93 L 94 L 02/10/18 08:00 02/10/18 12:00 Temperature 98.0 F 98.1 F Pulse Rate 77 70 Respiratory Rate 17 17 Blood Pressure 148/67 H 132/67 Pulse Oximetry 95 93 L Intake & Output 02/09/18 02/10/18 02/10/18 18:59 06:59 18:59 Intake Total 2100 / 2100 1100 / 1100 Output Total 1000 / 1000 Balance 1100 / 1100 1100 / 1100 Weight 128.9 kg Intake: IV 900 / 900 200 / 200 NS Inj 1,000 ML @ 100 mls/hr IV 800 / 800 200 / 200 .CONT .Q10H [facility] Rx#:[id number] Rocephin Inj 2,000 MG In NS Inj 100 / 100 100 ML @ 200 mls/hr IV.SIG Q24H [facility] Rx#:[id number] Oral 1200 / 1200 900 / 900 Output: Urine 1000 / 1000 Other: # Voids 900 Date of Last Bowel Movement 02/09/18 02/09/18 02/09/18 Narrative: General patient in no acute distress HEENT extraocular movements are intact, clear oropharyngeal mucosa, no JVD Cardiovascular S1-S2 audible, RRR, no murmurs rubs or gallops Respiratory clear to auscultation bilaterally Abdomen soft, nontender, nondistended, normal bowel sounds Extremities right foot in bandage, no active drainage noted. Left BKA currently in bandage. No significant soak through as of now. Neuro no neurological deficits. Results Procedures completed during hospitalization: s/p Irrigation debridement of abscess to left below-knee amputation with wound VAC application by Dr Tejada 02/01/18 Left BKA Stump aspiration 02/01/18 by IR Labs on day of discharge: Labs from last 24 hours 02/10/18 02/10/18 02/10/18 11:03 07:34 05:23 WBC RBC Hgb Hct MCV MCH MCHC RDW Plt Count MPV Neut % (Auto) Lymph % (Auto) [place] % (Auto) Eos % (Auto) Baso % (Auto) Neut # (Auto) Lymph # (Auto) [place] # (Auto) Eos # (Auto) Baso # (Auto) WBC Differential Differential Comment Sodium 141 Potassium 4.1 Chloride 105 Carbon Dioxide 28.3 Anion Gap 8 BUN 10 Creatinine 1.21 Estimated GFR 62 L POC Glucose 186 H 173 H Random Glucose 209 H Calcium 8.1 L 02/10/18 02/10/18 02/09/18 05:23 03:58 21:25 WBC 4.9 RBC 3.80 L Hgb 11.8 L Hct 35.6 L MCV 93.5 MCH 30.9 MCHC 33.1 RDW 13.3 Plt Count 245 MPV 8.2 Neut % (Auto) 62.5 Lymph % (Auto) 22.1 [place] % (Auto) 9.5 H Eos % (Auto) 5.1 H Baso % (Auto) 0.8 Neut # (Auto) 3.0 Lymph # (Auto) 1.1 [place] # (Auto) 0.5 Eos # (Auto) 0.2 Baso # (Auto) 0.0 WBC Differential . Differential Comment Auto diff final Sodium Potassium Chloride Carbon Dioxide Anion Gap BUN Creatinine Estimated GFR POC Glucose 241 H 237 H Random Glucose Calcium 02/09/18 16:18 WBC RBC Hgb Hct MCV MCH MCHC RDW Plt Count MPV Neut % (Auto) Lymph % (Auto) [place] % (Auto) Eos % (Auto) Baso % (Auto) Neut # (Auto) Lymph # (Auto) [place] # (Auto) Eos # (Auto) Baso # (Auto) WBC Differential Differential Comment Sodium Potassium Chloride Carbon Dioxide Anion Gap BUN Creatinine Estimated GFR POC Glucose 178 H Random Glucose Calcium Preliminary micro results at discharge 02/02/18 08:42 Mycobacterial Culture - Preliminary Wound - Other No growth in 1 week 02/02/18 08:42 Mycobacterial Culture - Preliminary Wound - Other No growth in 1 week 02/02/18 08:42 Fungal Culture - Preliminary Wound - Other No growth in 1 week 02/02/18 08:42 Fungal Culture - Preliminary Wound - Other No growth in 1 week - Impressions ITS Impressions Foot X-Ray 01/31/18 00:00 CONCLUSION: Chronic change as described above. Knee X-Ray 01/31/18 15:23 CONCLUSION: Significant soft tissue swelling surrounding the tibial and fibular stump following below-knee amputation noted No evidence of destructive bone changes. Knee CT 01/31/18 16:25 CONCLUSION: 1. Status post [id number] amputation. 2. Nonspecific fluid collection seen inferior to the tibia. This fluid collection abuts the inferior aspect of the remaining aspect of the tibia and extends anteriorly at the distal tibia. This could be a bursa versus other fluid collection including hematoma, seroma or abscess in the correct clinical situation. Aspiration 02/01/18 00:00 CONCLUSION: 1. Ultrasound-guided aspiration of BKA stump fluid collection yielding 10 cc of purulent fluid. Foot MRI 02/01/18 00:00 CONCLUSION: 1. Wound along the plantar surface of the forefoot appears fairly superficial without evidence of deep involvement or underlying abscess. 2. No evidence of osteomyelitis. Extremity Arterial Study 02/02/18 00:00 CONCLUSION: Normal ankle-brachial index at the right lower extremity. The ankle brachial index can be compromised by heavily calcified vessels in diabetics. Discharge Plan - Discharge Disposition Patient Disposition: W/Home Health Service - Discharge Condition Condition: Good - Discharge Order Discharge Orders: Orthopedic Clear for Discharge (Routine); Ordered 02/09/18 Ordered By: Telly Graves - Physicians Team Primary Care Provider: UNKNOWN, Attending Provider: Marry Javier Other Providers: Shannon Hollis DPM ; Flaquito Tejada MD ; Maycol Severino ; Regino Santillan MD ; Wong Montes MD
[2018-02-10 16:18] VITALS: BP 161/69; PULSE 76; TEMP 98; O2SAT 94
== END 2018-02-10 18:12 | disposition home health service (06) ==
LOC: NEPC 12:17 → NEDA 18:37 → N07 20:20
PROVIDERS: ADMIT Hospitalist; ATTEND Hospitalist